=== PATIENT | female | born 1960 | race Caucasian/White ===

== ENCOUNTER → 2018-01-14 13:35 | Outpatient (CLI) | payer OTHER, SELFPAY ==
--- NOTE | 2018-01-14 13:38 | RAD_ITS ---
STUDY: X-RAY - RIGHT SHOULDER REASON FOR EXAM: Female, 57 years old. Shoulder pain, no trauma. TECHNIQUE: 4 view(s) of the shoulder. COMPARISON: None. FINDINGS: There is mild chronic AC joint arthrosis. There is no significant degeneration of the glenohumeral joint. There is no fracture or dislocation. Periarticular soft tissues appear normal. Right hemithoracic structures within the field of view appear normal. RAD/Shoulder min 2 Views IMPRESSION: Mild chronic AC joint arthrosis. Electronically Signed: Dennys Peres, at 14:13 EDT Tel , Service support ,
== END ==
PROVIDERS: Family Provider Internal Medicine; PCP Internal Medicine; Visit Provider Internal Medicine
DX: M25.511 Pain in right shoulder (principal)
CPT/HCPCS: 73030

== ENCOUNTER → 2018-03-08 16:33 | Outpatient (CLI) | payer OTHER, SELFPAY ==
--- NOTE | 2018-03-08 17:30 | MRI_ITS ---
STUDY: MRI RIGHT SHOULDER REASON FOR EXAM: Female, 57 years old. Pain. Decreased range of motion. TECHNIQUE: Standardized fat and water weighted pulse sequences were obtained in all 3 orthogonal planes. COMPARISON: X-ray January 14, 2018. FINDINGS: There is supraspinatus tendinosis with tendon thickening, but without a demonstrated tendon tear. Normal infraspinatus tendon. Normal subscapularis tendon. Normal teres minor tendon. Normal supraspinatus muscle. Normal infraspinatus muscle. Normal subscapularis muscle. Normal teres minor muscle. Normal glenohumeral articulation. Normal humeral head and visualized proximal humerus. Normal biceps labral complex. Normal intracapsular long biceps tendon. Normal labrum. Normal capsulo- ligamentous complex. Normal rotator interval. There is a hypertrophic osteoarthritis of the acromioclavicular articulation with impingement upon the musculotendinous junction of the supraspinatus muscle. There is a Type II morphology (curved) acromion, with a neutral orientation. There is no subacromial-subdeltoid bursal fluid. Normal visualized coracohumeral and coracoacromial ligaments. Normal quadrilateral space. Normal axillary space. Normal deltoid muscle. Normal trapezius muscle. MRI/Upper Ext Joint Only(Routine) IMPRESSION: No full-thickness rotator cuff tear Tendinosis of the supraspinatus. Acromioclavicular spurring with impingement. Electronically Signed: Efren Wong MD at 9:32 EST , Service support ,
== END ==
PROVIDERS: Family Provider Internal Medicine; PCP Internal Medicine; Referring Provider Internal Medicine; Visit Provider Internal Medicine
DX: M25.511 Pain in right shoulder (principal)
CPT/HCPCS: 73221

== ENCOUNTER 2018-10-12 08:21 | Observation (INO) | payer OTHER, SELFPAY ==
[2018-10-12 08:22] VITALS: BP 129/72; PULSE 75; RESP 17; TEMP 36.4; O2SAT 100; BMI 34.0
--- NOTE | 2018-10-12 08:41 | EKG12_ITS ---
Test Reason : Blood Pressure : / mmHG Vent. Rate : 072 BPM Atrial Rate : 072 BPM P-R Int : 180 ms QRS Dur : 082 ms QT Int : 396 ms P-R-T Axes : 049 -01 027 degrees QTc Int : 433 ms Normal sinus rhythm Normal ECG Confirmed by LENCHO LEO, ALFREDO ([id number]), news editor LETICIA WHALEN ([id number]) on 10/15/2018 9:28:36 AM Referred By: RAMILA Confirmed By:ALFREDO MUSA MD
--- NOTE | 2018-10-12 08:42 | CT_ITS ---
STUDY: CT ABDOMEN AND PELVIS WITHOUT CONTRAST REASON FOR EXAM: Female, 57 years old. Bilateral flank pain RADIATION DOSAGE (If Supplied By Facility): CTDIvol = ( 20.12 ) mGy, DLP = ( 1050.38 ) mGycm TECHNIQUE: Transaxial images were obtained from the dome of the diaphragm to the symphysis pubis without oral contrast, and without intravenous contrast. Sagittal and coronal images were reconstructed. Individualized dose optimization techniques were used for this CT. COMPARISON: August 22, 2016 CT scan abdomen and pelvis FINDINGS: The visualized lung bases are unremarkable. The visualized portions of the heart are within normal limits. Normal liver. There are surgical clips in the gallbladder fossa consistent with a prior cholecystectomy. Normal spleen. Normal pancreas. Normal bilateral adrenal glands. There is a cyst in the right kidney measuring 1.3 cm. Is similar to the prior study allowing for the noncontrasted nature of the study. Normal left kidney. There is a small hiatal hernia. There mildly distended loops of small bowel present especially in the left upper quadrant. Is moderate stool in the colon from the cecum to the rectum. There is diverticulosis without visualized diverticulitis. There is non-visualization of the appendix. The aorta is partially calcified. There is calcification of the take off of the left renal artery. Normal inferior vena cava. Normal retroperitoneum. Normal urinary bladder. Normal visualized uterus. Normal abdominal wall. There is disc space narrowing and broad disc bulge minimal neural foraminal narrowing L4-L5. CT/Abdomen/Pelvis without Cont IMPRESSION: Constipation. Diverticulosis no evidence of diverticulitis. Subtle fairly stable appearing right renal cyst. No evidence of renal ureteral or bladder calculi no evidence of hydronephrosis. Status post cholecystectomy. Mild distention of the small bowel in the left upper quadrant could consider mild focal ileus. Electronically Signed: Aura Crow MD at 9:48 EDT Tel , Service support ,
[2018-10-12 08:51] LABS: Mucous, Urine 0 SEEN /hpf (<or=2+); Red Blood Cells-Urine 0 SEEN /hpf (0-5)
[2018-10-12] MEDS: 0.9% Normal Saline 1,000 ML 125 ML IV ×2 (08:51→17:52)
[2018-10-12] MEDS: Morphine 4 MG/ML Syringe IV (08:51)
[2018-10-12] MEDS: Ondansetron 4 MG/2 ML Vial IV (08:51)
--- NOTE | 2018-10-12 08:55 | ED.VISSUMM ---
- ER Visit Summary Date of Service: 10/12/18 Chief Complaint: [Abdominal pain] History of Present Illness: The patient is a 57 F [resents to the emergency department complaint of abdominal pain that started yesterday. Patient states that she noticed it after she got home from work that she had some discomfort in her left mid back. Patient thought she might be developing a urinary tract infection so she took an Azo tablet. She denies urinary symptoms otherwise of urgency, frequency, or hematuria. Patient states that this morning the pain migrated to her abdomen. Patient states that she feels full and bloated. She is had some nausea but no vomiting. She denies any blood in her stool or black tarry stools. Patient has history of diabetes, hypertension, high cholesterol, and kidney stones. She denies any chest pain or shortness of breath. The discomfort is not pleuritic.] Physical Examination: [HEENT-PERRLA, EOMI. Cranial nerves II through XII grossly intact. TMs clear. Mucous membranes moist. No adenopathy. Cardiovascular-regular rate and rhythm without murmur or ectopy Lungs-clear to auscultation, chest wall stable without crepitus or subcu emphysema Abdomen-normoactive bowel sounds, soft. Patient has some mild tenderness over the gastric region diffusely. Patient has mild tenderness over the left lower quadrant. There is no rebound, rigidity, or perineal signs. No pulsatile masses palpated. Extremities-intact ?4, normal range of motion, normal pulses, atraumatic] Test Results: [CBC with differential shows a white count 4.3, hemoglobin 12, hematocrit 3, placed 192. Chemistries unremarkable. Liver enzymes were normal. Lipase was 160. Troponin is less than 0.015. Lactate was 1.2. EKG on arrival shows sinus rhythm with a ventricular rate 72 bpm with no acute ST segment changes. CT scan of the abdomen pelvis without contrast because patient allergic to IV and p.o. contrast was obtained which showed some dilated loops of small bowel suspicious for ileus. Urinalysis pending.] Emergency Department Course and Treatment: [IV line established and patient was given normal saline. Patient was treated with morphine and Zofran.] Treatment Plan: [Admit for fluids and symptom control.] Disposition: [Admit] Impression: [Abdominal pain Ileus] This note was generated with [employer] software. It may contain incorrect words, spelling, and punctuation that were not noted in review of the chart prior to signing ED Disposition - Plan for ED Patient: Referrals: Lashay Rivers DO [Primary Care Provider] -
[2018-10-12 08:57] LABS: Absolute Lymphocyte Count 1.31 X10^3/ul (0.83-4.51); Absolute Neutrophil Count 2.5 X10^3/uL (2.0-7.7); Basophil# 0.02 X10^3/uL; Basophil% 0.5 % (0-1); Eosinophil# 0.23 X10^3/uL; Eosinophils% 5.4 % (0-5); Hematocrit 38.1 % (37-47); Hemoglobin 12.1 g/dl (12.0-15.0); Lymphocyte # 1.31 X10^3/ul (4.0); Lymphocyte % 30.5 % (19-41); Mean Corp Hgb Conc 31.8 g/gl (32-36); Mean Corpuscular Volume 94.3 fL (81-99); Mean Platelet Vol. 10.3 fl (6.2-12.0); Monocyte# 0.25 X10^3/uL; Monocyte% 5.8 % (0-10); Neutrophil # 2.48 X10^3/uL (2.7-7.7); Neutrophil % 57.8 % (47-70); POSITIVE COUNT NO; POSITIVE DIFFERENTIAL NO; POSITIVE MORPHOLOGY NO; Platelet Count 192 K/mm3 (150-450); RBC Distribution Width CV 14.3 % (11.6-14.6); RBC Distribution Width SD 48.9 fl (35.1-43.9); Red Blood Count 4.04 M/mm3 (4.2-5.4); White Blood Count 4.3 K/mm3 (4.4-11.0)
[2018-10-12 09:12] LABS: ALB/GLOB Ratio 1.2 RATIO (0.9-2.4); AST(SGOT) 16 U/L (15-37); Alanine Aminotransfer ALT/SGPT 26 U/L (13-56); Alkaline Phosphatase 39 U/L (45-117); Anion Gap 4 (5-15); BUN 23 mg/dL (7-18); BUN/Creat Ratio 23.8 RATIO (10-20); Calcium,Total 9.3 mg/dL (8.5-10.1); Chloride 106 mmol/L (98-107); Creatinine, Serum 0.97 mg/dL (0.55-1.02); EST Glomerular Filtration Rate 63 mL/min (>60); Est Glom Filt Rate - Afr Amer 76 mL/min (>60); Estimated Creatinine Clearance 56.89 ml/min; Globulin 3.4 g/dL (2.2-4.2); Glucose 113 mg/dL (74-106); Lipase 160 U/L (73-393); Potassium 4.2 mmol/L (3.5-5.1); Protein, Total 7.4 g/dL (6.4-8.2); Sodium Level 137 mmol/L (136-145)
[2018-10-12 09:27] LABS: Lactic Acid 1.2 mmol/L (0.4-2.0)
[2018-10-12 10:23] VITALS: BP 129/83; PULSE 89; RESP 16; O2SAT 98
[2018-10-12 10:23] LABS: Glucose, Dipstick 1000 mg/dl (Normal); Ketone-Dipstick Negative (Negative); Leukocyte Esterase-Dipstick 25 /ul (Negative); Nitrite-Dipstick Positive (Negative); Occult Blood-Urine Negative /ul (Negative); Protein-Dipstick 15 mg/dl (Negative); Specific Gravity, Urine 1.015 (1.002-1.030); Urine Clarity Clear (Clear); Urine Urobilinogen 4 mg/dl (Normal)
[2018-10-12 10:24] LABS: Urine Bilirubin Dipstick 3 mg/dL (Negative)
[2018-10-12 10:25] LABS: Color, Urine Orange (Yellow)
[2018-10-12 10:32] LABS: Bacteria RARE /hpf (None Seen); Squamous Epithelial Cells - UA 0-5 SEEN /hpf (5-10); White Blood Cells 0-5 SEEN /hpf (0-5)
[2018-10-12 10:46] VITALS: BP 127/61; PULSE 70; RESP 16; TEMP 36.6; O2SAT 96; BMI 33.4
[2018-10-12 11:09] VITALS: BMI 33.4
--- NOTE | 2018-10-12 11:15 | HP.PCM_ITS ---
Problem List (1) Acute bilateral thoracic back pain Status: Acute (2) Abdominal pain Status: Acute Qualifiers: Abdominal location: upper abdomen, unspecified Qualified Code(s): R10.10 - Upper abdominal pain, unspecified (3) Leukopenia Status: Chronic (4) Dehydration Status: Acute (5) Hypertension Status: Chronic Qualifiers: Hypertension type: essential hypertension Qualified Code(s): I10 - Essential (primary) hypertension (6) TIA (transient ischemic attack) Status: Chronic Comment: 2016 (7) Hyperlipidemia Status: Chronic (8) Diabetes mellitus type 2 in obese Status: Chronic (9) Obesity (BMI 30.0-34.9) Status: Acute (10) Osteoarthritis Status: Chronic Qualifiers: Osteoarthritis location: spine (11) Diverticulosis Status: Chronic (12) Nephrolithiasis Status: Acute History of Present Illness Date of Admission: 10/12/18 Chief Complaint: back pain in the low thoracic area with radiation to the upper abdomen The patient is a 57 year old F with a past medical history of hypertension, diabetes mellitus type 2, obesity, nephrolithiasis, osteoarthritis, diverticulosis, chronic 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 She tells me that she first noticed the pain on 10/11/2018 and it originated in the spine in the lower thoracic area. Today the pain began radiating around the sides to the upper abdomen, left greater than right. She denies any radiation of the pain into her legs and also denies any bowel or bladder dysfunction. She has no weakness. The pain increases with movement and somewhat with taking a deep breath. She has some mild nausea but has not vomited. She had a normal bowel movement this morning at approximately 4 AM. Denies any problem with diarrhea or constipation. Vital signs of presentation to the emergency room are temperature 97.6, pulse rate 75, blood pressure 129/72, respiratory rate 17 and she was 100% saturated on room air. White blood cell count is 4.3 with an unremarkable differential. Hemoglobin is 12.1 and platelets are within normal limits. The BUN is elevated at 23 with a creatinine of 0.97 and she is on hydrochlorothiazide as an outpatient for blood pressure control. Random blood sugar was 113. Lactic acid was 1.2. LFTs were unremarkable and the troponin is less than 0.015. The UA is positive for nitrites however the patient took to Azo prior to coming to the emergency room. There is 0-5 WBCs and she denies dysuria, urinary frequency or urinary urgency. CT scan of the abdomen and pelvis revealed possible ileus in the left upper quadrant with no evidence of small bowel obstruction. She has pain with palpation and percussion over the Lower thoracic vertebrae which radiates around the sides into the upper abdomen. She has no pain or guarding with deep palpation of the upper abd and there are no masses or HS appreciated. She is being admitted to the hospital for observa tion and evaluation for the etiology of the sudden onset of severe back and abdominal pain. Past Medical History Past Medical History (Chronic Problems): Chronic Problems Leukopenia (Chronic) Diabetes mellitus type 2 in obese (Chronic) Osteoarthritis (Chronic) Diverticulosis (Chronic) Hypertension (Chronic) TIA (transient ischemic attack) (Chronic) 2016 Hyperlipidemia (Chronic) Allergies Quinolones Allergy (Verified 10/12/18 08:22) Swelling codeine Adverse Reaction (Verified 10/12/18 08:22) Nausea Iodinated Contrast- Oral and IV Dye [Iodinated Contrast Media - IV Dye] Adverse Reaction (Verified 10/12/18 08:22) Swelling Home Medications: Ambulatory Orders Medication Instructions Recorded Allopurinol [Zyloprim] 300 mg PO DAILY 08/10/14 Ramipril [Altace] 5 mg PO DAILY 08/10/14 Sitagliptin Phosphate [Januvia] 100 mg PO DAILY 08/10/14 glipiZIDE [Glucotrol] 20 mg PO DAILY 08/10/14 Amlodipine [Norvasc] 5 mg PO DAILY #30 tablet 09/15/15 Aspirin E.C. 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 Lives: Spouse/ Significant Other Smoking Status: Never smoker Tobacco Use: Non-smoker Alcohol: Rare Drugs: None - *Family History Maternal History Items: Heart Disease, Stroke, No pertinent history Paternal History Items: Heart Disease Sibling History Items: Diabetes, Heart Disease, - - colon CA in her brother Review of Systems Constitutional: Denies: Chills, Fever, Weight Change Eyes: Denies: Blurred vision HEENT: Denies: Head Aches, Sinus Congestion, Sinus Drainage Cardiovascular: Denies: Chest Pain, Light Headedness, Palpitations Respiratory: Denies: Cough, Shortness of breath at rest, Sputum production Gastrointestinal: Reports: Abdominal Pain - upper abdomen....radiates from the back, Nausea, - - last BM was this AM at 4 AM and it was normal. Denies: Constipation, Diarrhea, Vomiting Genitourinary: Denies: Dysuria Musculoskeletal: Reports: Back Pain - lower thoracic and lower lumbar, - - no radiation of the pain into the legs. Denies: Joint Pain, Joint Tenderness, Muscle pain, Neck Pain Skin: Denies: Rash, Wounds Neurological: Denies: Numbness, Tingling, Focal weakness Psychiatric: Denies: Anxiety, Depression, Homicidal Ideations, Suicidal Ideations Endocrine: Denies: Change in Body Habitus Hematologic/ Lymphatic: Denies: Easy Bruising, Easy Bleeding, Hx of blood clot VTE Information - Inpt Only VTE Present on Admission: No VTE Mechan Device Prophylaxis: SCD's, Knee High YOSELIN Hose VTE Pharm Prophylaxis ordered?: Yes Patient Problems: Active and Suspected Problems Acute bilateral thoracic back pain (Acute) Abdominal pain (Acute) Obesity (BMI 30.0-34.9) (Acute) Nephrolithiasis (Acute) - Physical Exam General: Alert, Oriented x3, Cooperative, - - appears to be in pain....increased pain with rolling over in bed and with palpation and percussion of the lower thoracic vertebrae HEENT: Atraumatic, PERRLA, EOMI, Normocephalic Neck: Supple, No JVD, Negative Carotid Bruits Lungs: Clear to auscultation, Normal air movement, Diminished - in the bases.....does not take a deep breath because it increases the pain Cardiovascular: Regular rate, Regular Rhythm, Normal S1, Normal S2, No murmurs, No Ectopic Activity, No rub noted, No Gallop Abdomen: Bowel Sounds Present, Soft, Non-Distended, No Hepato-splenomegaly, Obese, Tender - minimal pain with palpation of the mid epigastric area with no guarding.....no pain with palpation when distracted Extremities: No clubbing, No cyanosis, No edema, Capillary Refill Less than 3 Seconds, No Calf Tenderness, Peripheral Pulses Normal Skin: No rashes, No breakdown Musculoskeletal: No Tenderness to Palpation of Joints or Extremities Neurological: Cranial nerves II-XII grossly intact, Neuro grossly intact, Motor Exam 5/5 strength throughout, - - Negative straight leg raising bilaterally Psych/Mental Status: Normal Affect, Appropriate Vital Signs Temp Pulse Resp BP Pulse Ox 97.8 F 70 16 127/61 H 96 10/12/18 10:46 10/12/18 10:46 10/12/18 10:46 10/12/18 10:46 10/12/18 10:46 Oxygen Delivery Method Room Air Weight: 201 lb Body Mass Index (BMI) 33.4 Finger Stick Blood Glucose 24 Laboratory Tests Past 24 Hrs 10/12/18 10/12/18 10/12/18 08:43 08:43 08:43 WBC 4.3 L RBC 4.04 L Hgb 12.1 Hct 38.1 MCV 94.3 MCH 30.0 MCHC 31.8 L RDW 14.3 RDW Differential 48.9 H Plt Count 192 MPV 10.3 Immature Gran % (Auto) 0.000 Neut % (Auto) 57.8 Lymph % (Auto) 30.5 [place] % (Auto) 5.8 Eos % (Auto) 5.4 H Baso % (Auto) 0.5 Absolute Neuts (auto) 2.5 Absolute Lymphs (auto) 1.31 Total Counted Not Reportable Sodium 137 Potassium 4.2 Chloride 106 Carbon Dioxide 27.0 Anion Gap 4 L BUN 23 H Creatinine 0.97 Estim Creat Clear Calc 56.89 Est GFR (MDRD) Af Amer 76 Est GFR (MDRD) Non-Af 63 BUN/Creatinine Ratio 23.8 H Glucose 113 H Hemoglobin A1c Lactic Acid 1.2 Calcium 9.3 Total Bilirubin 0.50 AST 16 ALT 26 Alkaline Phosphatase 39 L Troponin I < 0.015 Total Protein 7.4 Albumin 4.0 Globulin 3.4 Albumin/Globulin Ratio 1.2 Lipase 160 Urine Color Urine Clarity Urine pH Ur Specific [place] Urine Protein Urine Glucose (UA) Urine Ketones Urine Occult Blood Urine Nitrite Urine Bilirubin Urine Urobilinogen Ur Leukocyte Esterase Urine RBC Urine WBC Ur Squamous Epith Cells Urine Bacteria Urine Mucus 10/12/18 10/12/18 08:43 08:43 WBC RBC Hgb Hct MCV MCH MCHC RDW RDW Differential Plt Count MPV Immature Gran % (Auto) Neut % (Auto) Lymph % (Auto) [place] % (Auto) Eos % (Auto) Baso % (Auto) Absolute Neuts (auto) Absolute Lymphs (auto) Total Counted Sodium Potassium Chloride Carbon Dioxide Anion Gap BUN Creatinine Estim Creat Clear Calc Est GFR (MDRD) Af Amer Est GFR (MDRD) Non-Af BUN/Creatinine Ratio Glucose Hemoglobin A1c Pending Lactic Acid Calcium Total Bilirubin AST ALT Alkaline Phosphatase Troponin I Total Protein Albumin Globulin Albumin/Globulin Ratio Lipase Urine Color [place] Urine Clarity Clear Urine pH 5.0 Ur Specific [place] 1.015 Urine Protein 15 H Urine Glucose (UA) 1000 H Urine Ketones Negative Urine Occult Blood Negative Urine Nitrite Positive H Urine Bilirubin 3 H Urine Urobilinogen 4 H Ur Leukocyte Esterase 25 H Urine RBC 0 SEEN Urine WBC 0-5 SEEN Ur Squamous Epith Cells 0-5 SEEN Urine Bacteria RARE Urine Mucus 0 SEEN Assessment/Plan All Active Problems Acute bilateral thoracic back pain (Acute) Abdominal pain (Acute) Obesity (BMI 30.0-34.9) (Acute) Nephrolithiasis (Acute) Dehydration (Acute) Headache (Acute) Hypokalemia (Resolved) Impressions 1. Upper abdominal pain. The CT scan of the abdomen and pelvis is unremarkable. She had a normal bowel movement this morning. She has had no emesis. The pain seems to originate in the lower thoracic spine and radiates around the sides to the upper abdomen. It is reproducible with percussion over the vertebrae. She has increased pain with movement and deep breath. I suspect the origin of the pain is in the lower thoracic spine with radiation of the pain into the upper abdomen. CT scan of the abdomen and pelvis showed disc space narrowing and broad disc bulge with minimal neural foraminal narrowing at L4-5. 2. Disc bulge at L4-L5 with no significant foraminal stenosis or canal stenosis. 3. Suspected focal ileus in the left upper quadrant 4. Diabetes mellitus type 2 5. Hypertension 6. Hyperlipidemia 7. Obesity 8. History of nephrolithiasis in the past with a stable right renal cyst on CT scan. 9. Small hiatal hernia 10. Diverticulosis with no evidence of diverticulitis MRI of the thoracic and the lumbar spine Gabapentin 300 mg p.o. now Morphine ordered for pain control Zofran as needed nausea Await the results of the MRI to determine further treatment N.p.o. except sips and chips for now until the results of the MRI available Every 6 hours blood sugars with sliding scale insulin coverage Code Visit OBSV E&M: [id number] Initial observation care L3
[2018-10-12 11:28] LABS: Hemoglobin A1c 7.2 % (4.2-6.3)
--- NOTE | 2018-10-12 11:34 | MRI_ITS ---
STUDY: MRI THORACIC SPINE WITHOUT CONTRAST REASON FOR EXAM: Female, 57 years old. Sharp back pain for 2 days TECHNIQUE: Standardized fat and water weighted pulse sequences were obtained in the sagittal and axial planes. COMPARISON: None. FINDINGS: Normal kyphosis of the thoracic spine. There is no substantial scoliosis. Mild multilevel degenerative disc disease without evidence of underlying significant central canal or foraminal stenosis. No evidence of cord compression or exiting nerve root impingement. Normal visualized thoracic cord. Renal cysts. MRI/Spine Thoracic (Routine) IMPRESSION: Mild multilevel disc disease without significant compressive sequelae. No evidence of compression fracture, cord pathology, or exiting nerve root impingement. Electronically Signed: Rui Corcoran MD at 14:48 EDT Tel , Service support ,
--- NOTE | 2018-10-12 11:34 | MRI_ITS ---
STUDY: MRI LUMBAR SPINE WITHOUT CONTRAST REASON FOR EXAM: Female, 57 years old. Sharp back pain for 2 days TECHNIQUE: Standardized fat and water weighted pulse sequences were obtained in the sagittal and axial planes. COMPARISON: None FINDINGS: T12-L1: Normal endplates. Normal disc height, hydration and morphology. Normal bilateral facet joints. Normal central canal and bilateral lateral recesses. Normal bilateral intervertebral neural foramina. Normal lumbar lordosis. There is no substantial scoliosis. Normal conus medullaris that terminates at the L1 level. L1-2: Bulging annulus without compressive sequelae. L2-3: Normal endplates. Normal disc height, hydration and morphology. Normal bilateral facet joints. Normal central canal and bilateral lateral recesses. Normal bilateral intervertebral neural foramina. L3-4: Bulging annulus without compressive sequelae. L4-5: Disc space narrowing and desiccation with discogenic endplate changes and anterior osteophytes. Bulging annulus with moderate right and mild left foraminal stenoses. L5-S1: Normal disc. Bilateral facet hypertrophy and facet joint effusions. Normal visualized sacral ala. Normal visualized paraspinous soft tissue structures. Left renal cyst. MRI/Spine Lumbar (Routine) IMPRESSION: Multilevel degenerative disease as described. Moderate right foraminal stenosis at the L4-5 level. No acute compression fracture. Electronically Signed: Rui Corcoran MD at 14:58 EDT Tel , Service support ,
[2018-10-12] MEDS: Gabapentin 100 MG Capsule 200 MG PO (12:06)
[2018-10-12] MEDS: Enoxaparin 40 MG/0.4 ML Syringe SC (12:07)
[2018-10-12] MEDS: LORazepam 1 MG Tablet PO (12:35)
[2018-10-12 15:14] VITALS: BP 126/66; PULSE 72; RESP 16; TEMP 36.6; O2SAT 92
[2018-10-12 16:26] LABS: Bedside Glucose 83 mg/dL (70-110)
[2018-10-12 17:25] LABS: Bedside Glucose 97 mg/dL (70-110)
[2018-10-12 21:30] VITALS: BP 114/67; PULSE 71; RESP 16; TEMP 36.8; O2SAT 93
[2018-10-13] VITALS: BP 121/69; PULSE 72; RESP 18; TEMP 36.7; O2SAT 96
[2018-10-13 00:11] LABS: Bedside Glucose 80 mg/dL (70-110)
[2018-10-13] MEDS: 0.9% Normal Saline 1,000 ML 125 ML IV ×2 (01:59→08:55)
[2018-10-13 03:54] VITALS: BP 130/75; PULSE 73; RESP 18; TEMP 36.6; O2SAT 96
[2018-10-13 08:48] VITALS: BP 114/57; PULSE 70; RESP 18; TEMP 36.6; O2SAT 98
[2018-10-13] MEDS: Allopurinol 300 MG Tablet PO (08:50)
[2018-10-13] MEDS: Enoxaparin 40 MG/0.4 ML Syringe SC (08:51)
--- NOTE | 2018-10-13 10:22 | PCM.DC ---
- Discharge Diagnoses Current Active Problems: Current Active and Chronic Problems Acute bilateral thoracic back pain (Acute) Abdominal pain (Acute) Leukopenia (Chronic) Diabetes mellitus type 2 in obese (Chronic) Obesity (BMI 30.0-34.9) (Acute) Osteoarthritis (Chronic) Diverticulosis (Chronic) Nephrolithiasis (Acute) You will use the following diet at home:: Calorie/Carbohydrate Controlled (specify 1200, 1400, etc), Cardiac Your food should be the consistency of: Regular Your liquids should be the consistency of: Regular/Thin Discharge Activity: Return to Normal Activity Return to work on:: 10/14/18 Call your doctor if you observe: Fever of 101 or Higher, Inability to have a bowel movement, Shortness of breath, Dizziness, Fainting spells, Swelling in the ankles, Uncontrolled pain, - - nausea and vomiting Instructions: Depression Affects Your Mind and Body, What Can Cause Depression?, Counseling for Depression, Depression: Tips to Help Yourself Additional Instructions: The MRI of the thoracic spine showed mild multilevel disc disease without significant compression of the spinal cord or the nerves exiting the spinal cord, The MRI of the Lumbar spine shows a bulging disc at L4-L5 with compression of the nerve root exiting on the right at this level BUT, you do not have any pain radiating into the legs and no weakness of the legs or numbness so this is not significant at this time. I think that you are significantly depressed and overwhelmed with responsibility at this time and it affects your perception of pain. I have started you on an antidepressant and also treats anxiety and it is called Zoloft, also know as Sertraline. You will take this medication once a day in the AM. It takes 2-3 weeks to get any significant benefit from this medication so hang in there. I also think you would benefit from some counselling to teach you how to manage your stress better. The [facility] on [facility] is an excellent place to go for therapy. Check with your insurance company to see if they cover any psychotherapy. You can take Tylenol for pain.......650 mg - 1,000 mg every 8 hours as needed. Pending Tests on Discharge: none Allergies/Adverse Reactions: Allergies Quinolones Allergy (Verified 10/12/18 08:22) Swelling codeine Adverse Reaction (Verified 10/12/18 08:22) Nausea Iodinated Contrast- Oral and IV Dye [Iodinated Contrast Media - IV Dye] Adverse Reaction (Verified 10/12/18 08:22) Swelling Medications to take at Discharge Allopurinol [Zyloprim] 300 mg PO DAILY 08/10/14 Ramipril [Altace] 5 mg PO DAILY 08/10/14 Sitagliptin Phosphate [Januvia] 100 mg PO DAILY 08/10/14 glipiZIDE [Glucotrol] 20 mg PO DAILY 08/10/14 Amlodipine [Norvasc] 5 mg PO DAILY #30 tablet 09/15/15 Aspirin E.C. [Ecotrin] 81 mg PO DAILY@0800 #30 tablet 09/15/15 metFORMIN HCl [Glucophage] 1,000 mg PO BIDCM #60 tablet 09/15/15 Pioglitazone [Actos] 15 mg PO DAILY 08/12/16 Simvastatin [Zocor] 40 mg PO QHS 08/12/16 Cholecalciferol (Vitamin D3) [Vitamin D3] 7,000 unit PO DAILY 03/06/17 Empagliflozin [Jardiance] 25 mg PO DAILY 03/06/17 Hydrochlorothiazide [Hctz] 25 mg PO DAILY 03/06/17 Magnesium Oxide [Magnesium] 400 mg PO DAILY 03/06/17 Sertraline HCl [Zoloft] 50 mg PO DAILY #30 tablet 10/13/18 The following prescriptions were given: Sertraline HCl [Zoloft] 50 mg PO DAILY #30 tablet Primary Care Physician: Lashay Rivers DO [Primary Care Provider] - Please follow up with your Primary Care Physician in: 5-7 days Test Results: Test results from this visit will be discussed in further detail at your follow-up appointment, if applicable. Proposed Discharge Date: 10/13/18
--- NOTE | 2018-10-13 10:32 | DCINST_ITS ---
- Discharge Diagnoses Current Active Problems: Current Active and Chronic Problems Acute bilateral thoracic back pain (Acute) Abdominal pain (Acute) Leukopenia (Chronic) Diabetes mellitus type 2 in obese (Chronic) Obesity (BMI 30.0-34.9) (Acute) Osteoarthritis (Chronic) Diverticulosis (Chronic) Nephrolithiasis (Acute) You will use the following diet at home:: Calorie/Carbohydrate Controlled (specify 1200, 1400, etc), Cardiac Your food should be the consistency of: Regular Your liquids should be the consistency of: Regular/Thin Discharge Activity: Return to Normal Activity Return to work on:: 10/14/18 Call your doctor if you observe: Fever of 101 or Higher, Inability to have a bowel movement, Shortness of breath, Dizziness, Fainting spells, Swelling in the ankles, Uncontrolled pain, - - nausea and vomiting Instructions: Depression Affects Your Mind and Body, What Can Cause Depression?, Counseling for Depression, Depression: Tips to Help Yourself Additional Instructions: The MRI of the thoracic spine showed mild multilevel disc disease without significant compression of the spinal cord or the nerves exiting the spinal cord, The MRI of the Lumbar spine shows a bulging disc at L4- L5 with compression of the nerve root exiting on the right at this level BUT, you do not have any pain radiating into the legs and no weakness of the legs or numbness so this is not significant at this time. I think that you are significantly depressed and overwhelmed with responsibility at this time and it affects your perception of pain. I have started you on an antidepressant and also treats anxiety and it is called Zoloft, also know as Sertraline. You will take this medication once a day in the AM. It takes 2-3 weeks to get any signif icant benefit from this medication so hang in there. I also think you would benefit from some counselling to teach you how to manage your stress better. The [facility] on [facility] is an excellent place to go for therapy. Check with your insurance company to see if they cover any psychotherapy. You can take Tylenol for pain.......650 mg - 1,000 mg every 8 hours as needed. Pending Tests on Discharge: none Allergies/Adverse Reactions: Allergies Quinolones Allergy (Verified 10/12/18 08:22) Swelling codeine Adverse Reaction (Verified 10/12/18 08:22) Nausea Iodinated Contrast- Oral and IV Dye [Iodinated Contrast Media - IV Dye] Adverse Reaction (Verified 10/12/18 08:22) Swelling Medications to take at Discharge Allopurinol [Zyloprim] 300 mg PO DAILY 08/10/14 Ramipril [Altace] 5 mg PO DAILY 08/10/14 Sitagliptin Phosphate [Januvia] 100 mg PO DAILY 08/10/14 glipiZIDE [Glucotrol] 20 mg PO DAILY 08/10/14 Amlodipine [Norvasc] 5 mg PO DAILY #30 tablet 09/15/15 Aspirin E.C. [Ecotrin] 81 mg PO DAILY@0800 #30 tablet 09/15/15 metFORMIN HCl [Glucophage] 1,000 mg PO BIDCM #60 tablet 09/15/15 Pioglitazone [Actos] 15 mg PO DAILY 08/12/16 Simvastatin [Zocor] 40 mg PO QHS 08/12/16 Cholecalciferol (Vitamin D3) [Vitamin D3] 7,000 unit PO DAILY 03/06/17 Empagliflozin [Jardiance] 25 mg PO DAILY 03/06/17 Hydrochlorothiazide [Hctz] 25 mg PO DAILY 03/06/17 Magnesium Oxide [Magnesium] 400 mg PO DAILY 03/06/17 Sertraline HCl [Zoloft] 50 mg PO DAILY #30 tablet 10/13/18 The following prescriptions were given: Sertraline HCl [Zoloft] 50 mg PO DAILY #30 tablet Primary Care Physician: Lashay Rivers DO [Primary Care Provider] - Please follow up with your Primary Care Physician in: 5-7 days Test Results: Test results from this visit will be discussed in further detail at your follow- up appointment, if applicable. Proposed Discharge Date: 10/13/18
--- NOTE | 2018-10-13 10:42 | DS.PCM_ITS ---
Discharge Date and Diagnosis - Problem List Patient Problems: Active and Suspected Problems Bulging of intervertebral disc between L4 and L5 (Acute) Date of Admission: 10/12/18 Date of Discharge: 10/13/18 - Primary Discharge Diagnosis Active and Suspected Problems Acute bilateral thoracic back pain (Acute) Abdominal pain (Acute) Bulging of intervertebral disc between L4 and L5 (Acute) - Secondary Discharge Diagnosis Chronic Problems Leukopenia (Chronic) Diabetes mellitus type 2 in obese (Chronic) Osteoarthritis (Chronic) Diverticulosis (Chronic) Hypertension (Chronic) TIA (transient ischemic attack) (Chronic) 2016 Hyperlipidemia (Chronic) Obesity History of nephrolithiasis Depression 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 Diverticulosis no evidence of diverticulitis. Subtle fairly stable appearing right renal cyst. No evidence of renal ureteral or bladder calculi no evidence of hydronephrosis. Status post cholecystectomy. Mild distention of the small bowel in the left upper quadrant could consider mild focal ileus. Electronically Signed: Aura Crow MD at 9:48 EDT Tel , Service support , Lumbar Spine MRI 10/12/18 11:34 IMPRESSION: Multilevel degenerative disease as described. Moderate right foraminal stenosis at the L4-5 level. No acute compression fracture. Electronically Signed: Rui Corcoran MD at 14:58 EDT Tel , Service support , Thoracic Spine MRI 10/12/18 11:34 IMPRESSION: Mild multilevel disc disease without significant compressive sequelae. No evidence of compression fracture, cord pathology, or exiting nerve root impingement. Electronically Signed: Rui Corcoran MD at 14:48 EDT Tel , Service support , Laboratory Tests 3 10/12/18 10/12/18 10/12/18 Range/Units 23:58 16:54 11:19 WBC (4.4-11.0) K/mm3 RBC (4.2-5.4) M/mm3 Hgb (12.0-15.0) g/dl Hct (37-47) % MCV (81-99) fL MCH (27.0-32.0) pg MCHC (32-36) g/gl RDW (11.6-14.6) % RDW Differential (35.1-43.9) fl Plt Count (150-450) K/mm3 MPV (6.2-12.0) fl Immature Gran % (Auto) (0.0-0.9) % Neut % (Auto) (47-70) % Lymph % (Auto) (19-41) % Rhea % (Auto) (0-10) % Eos % (Auto) (0-5) % Baso % (Auto) (0-1) % Absolute Neuts (auto) (2.0-7.7) X10^3/uL Absolute Lymphs (auto) (0.83-4.51) X10^3/ul Total Counted Sodium (136-145) mmol/L Potassium (3.5-5.1) mmol/L Chloride (98-107) mmol/L Carbon Dioxide (21.0-32.0) mmol/L Anion Gap (5-15) BUN (7-18) mg/dL Creatinine (0.55-1.02) mg/dL Estim Creat Clear Calc ml/min Est GFR (MDRD) Af Amer (>60) mL/min Est GFR (MDRD) Non-Af (>60) mL/min BUN/Creatinine Ratio (10-20) RATIO Glucose (74-106) mg/dL Hemoglobin A1c (4.2-6.3) % Lactic Acid (0.4-2.0) mmol/L Calcium (8.5-10.1) mg/dL Total Bilirubin (0.20-1.00) mg/dL AST (15-37) U/L ALT (13-56) U/L Alkaline Phosphatase (45-117) U/L Troponin I (<0.045) ng/mL Total Protein (6.4-8.2) g/dL Albumin (3.2-5.0) g/dL Globulin (2.2-4.2) g/dL Albumin/Globulin Ratio (0.9-2.4) RATIO Lipase (73-393) U/L Urine Color (Yellow) Urine Clarity (Clear) Urine pH (5.0 - 8.0) Ur Specific [place] (1.002-1.030) Urine Protein (Negative) mg/dl Urine Glucose (UA) (Normal) mg/dl Urine Ketones (Negative) mg/dl Urine Occult Blood (Negative) /ul Urine Nitrite (Negative) Urine Bilirubin (Negative) mg/dL Urine Urobilinogen (Normal) mg/dl Ur Leukocyte Esterase (Negative) /ul Urine RBC (0-5) /hpf Urine WBC (0-5) /hpf Ur Squamous Epith Cells (5-10) /hpf Urine Bacteria (None Seen) /hpf Urine Mucus (<or=2+) /hpf POC Glucose 80 97 83 (70-110) mg/dL 10/12/18 10/12/18 10/12/18 Range/Units 08:43 08:43 08:43 WBC (4.4-11.0) K/mm3 RBC (4.2-5.4) M/mm3 Hgb (12.0-15.0) g/dl Hct (37-47) % MCV (81-99) fL MCH (27.0-32.0) pg MCHC (32-36) g/gl RDW (11.6-14.6) % RDW Differential (35.1-43.9) fl Plt Count (150-450) K/mm3 MPV (6.2-12.0) fl Immature Gran % (Auto) (0.0-0.9) % Neut % (Auto) (47-70) % Lymph % (Auto) (19-41) % Rhea % (Auto) (0-10) % Eos % (Auto) (0-5) % Baso % (Auto) (0-1) % Absolute Neuts (auto) (2.0-7.7) X10^3/uL Absolute Lymphs (auto) (0.83-4.51) X10^3/ul Total Counted Sodium (136-145) mmol/L Potassium (3.5-5.1) mmol/L Chloride (98-107) mmol/L Carbon Dioxide (21.0-32.0) mmol/L Anion Gap (5-15) BUN (7-18) mg/dL Creatinine (0.55-1.02) mg/dL Estim Creat Clear Calc ml/min Est GFR (MDRD) Af Amer (>60) mL/min Est GFR (MDRD) Non-Af (>60) mL/min BUN/Creatinine Ratio (10-20) RATIO Glucose (74-106) mg/dL Hemoglobin A1c 7.2 H (4.2-6.3) % Lactic Acid 1.2 (0.4-2.0) mmol/L Calcium (8.5-10.1) mg/dL Total Bilirubin (0.20-1.00) mg/dL AST (15-37) U/L ALT (13-56) U/L Alkaline Phosphatase (45-117) U/L Troponin I (<0.045) ng/mL Total Protein (6.4-8.2) g/dL Albumin (3.2-5.0) g/dL Globulin (2.2-4.2) g/dL Albumin/Globulin Ratio (0.9-2.4) RATIO Lipase (73-393) U/L Urine Color [place] (Yellow) Urine Clarity Clear (Clear) Urine pH 5.0 (5.0 - 8.0) Ur Specific [place] 1.015 (1.002-1.030) Urine Protein 15 H (Negative) mg/dl Urine Glucose (UA) 1000 H (Normal) mg/dl Urine Ketones Negative (Negative) mg/dl Urine Occult Blood Negative (Negative) /ul Urine Nitrite Positive H (Negative) Urine Bilirubin 3 H (Negative) mg/dL Urine Urobilinogen 4 H (Normal) mg/dl Ur Leukocyte Esterase 25 H (Negative) /ul Urine RBC 0 SEEN (0-5) /hpf Urine WBC 0-5 SEEN (0-5) /hpf Ur Squamous Epith Cells 0-5 SEEN (5-10) /hpf Urine Bacteria RARE (None Seen) /hpf Urine Mucus 0 SEEN (<or=2+) /hpf POC Glucose (70-110) mg/dL 10/12/18 10/12/18 Range/Units 08:43 08:43 WBC 4.3 L (4.4-11.0) K/mm3 RBC 4.04 L (4.2-5.4) M/mm3 Hgb 12.1 (12.0-15.0) g/dl Hct 38.1 (37-47) % MCV 94.3 (81-99) fL MCH 30.0 (27.0-32.0) pg MCHC 31.8 L (32-36) g/gl RDW 14.3 (11.6-14.6) % RDW Differential 48.9 H (35.1-43.9) fl Plt Count 192 (150-450) K/mm3 MPV 10.3 (6.2-12.0) fl Immature Gran % (Auto) 0.000 (0.0-0.9) % Neut % (Auto) 57.8 (47-70) % Lymph % (Auto) 30.5 (19-41) % Rhea % (Auto) 5.8 (0-10) % Eos % (Auto) 5.4 H (0-5) % Baso % (Auto) 0.5 (0-1) % Absolute Neuts (auto) 2.5 (2.0-7.7) X10^3/uL Absolute Lymphs (auto) 1.31 (0.83-4.51) X10^3/ul Total Counted Not Reportable Sodium 137 (136-145) mmol/L Potassium 4.2 (3.5-5.1) mmol/L Chloride 106 (98-107) mmol/L Carbon Dioxide 27.0 (21.0-32.0) mmol/L Anion Gap 4 L (5-15) BUN 23 H (7-18) mg/dL Creatinine 0.97 (0.55-1.02) mg/dL Estim Creat Clear Calc 56.89 ml/min Est GFR (MDRD) Af Amer 76 (>60) mL/min Est GFR (MDRD) Non-Af 63 (>60) mL/min BUN/Creatinine Ratio 23.8 H (10-20) RATIO Glucose 113 H (74-106) mg/dL Hemoglobin A1c (4.2-6.3) % Lactic Acid (0.4-2.0) mmol/L Calcium 9.3 (8.5-10.1) mg/dL Total Bilirubin 0.50 (0.20-1.00) mg/dL AST 16 (15-37) U/L ALT 26 (13-56) U/L Alkaline Phosphatase 39 L (45-117) U/L Troponin I < 0.015 (<0.045) ng/mL Total Protein 7.4 (6.4-8.2) g/dL Albumin 4.0 (3.2-5.0) g/dL Globulin 3.4 (2.2-4.2) g/dL Albumin/Globulin Ratio 1.2 (0.9-2.4) RATIO Lipase 160 (73-393) U/L Urine Color (Yellow) Urine Clarity (Clear) Urine pH (5.0 - 8.0) Ur Specific [place] (1.002-1.030) Urine Protein (Negative) mg/dl Urine Glucose (UA) (Normal) mg/dl Urine Ketones (Negative) mg/dl Urine Occult Blood (Negative) /ul Urine Nitrite (Negative) Urine Bilirubin (Negative) mg/dL Urine Urobilinogen (Normal) mg/dl Ur Leukocyte Esterase (Negative) /ul Urine RBC (0-5) /hpf Urine WBC (0-5) /hpf Ur Squamous Epith Cells (5-10) /hpf Urine Bacteria (None Seen) /hpf Urine Mucus (<or=2+) /hpf POC Glucose (70-110) mg/dL none Operations: None Procedures: None Summary of Care Provided: The patient is a 57 year old F with a past medical history of hypertension, diabetes mellitus type 2, TIA, obesity, nephrolithiasis, osteoarthritis, diverticulosis, 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 She told me that she first noticed the pain on 10/11/2018 and it originated in the spine in the lower thoracic area. At admission the pain began radiating around the sides to the upper abdomen, left greater than right. She denied any radiation of the pain into her legs and also denied any bowel or bladder dysfunction. She had no weakness. The pain increased with movement and somewhat with taking a deep breath. She had some mild nausea but had not vomited. She had a normal bowel movement that morning at approximately 4 AM. Denied any problem with diarrhea or constipation. Vital signs at presentation to the emergency room were temperature 97.6, pulse rate 75, blood pressure 129/72, respiratory rate 17 and she was 100% saturated on room air. White blood cell count was 4.3 with an unremarkable differential. Hemoglobin was 12.1 and platelets were within normal limits. The BUN was elevated at 23 with a creatinine of 0.97 and she is on hydrochlorothiazide as an outpatient for blood pressure control. Random blood sugar was 113. Lactic acid was 1.2. LFTs were unremarkable and the troponin is less than 0.015. HGBA1C was 7.2. The UA was positive for nitrites however, the patient took to Azo prior to coming to the emergency room and this causes a false positive. There were 0-5 WBCs and she denied dysuria, urinary frequency or urinary urgency. She took the Azo because of the pain in the back because she thought she may have a kidney infection. CT scan of the abdomen and pelvis revealed possible ileus in the left upper quadrant with no evidence of small bowel obstruction. She had pain with palpation and percussion over the Lower thoracic vertebrae which radiated around the sides into the upper abdomen. She had no pain or guarding with deep palpation of the upper abd and there were no masses or HS appreciated. She was admitted to the hospital for observation and evaluation for the etiology of the sudden onset of severe back and abdominal pain. An MRI of the thoracic spine was obtained and showed multilevel degenerative disc disease with no significant foraminal stenosis or central canal stenosis. MRI of the lumbar spine showed a bulging disc at L4-L5 with disc space narrowing and moderate right and mild left foraminal stenoses. Patient denied any pain radiating into her legs and also denied numbness or weakness. The lumbar spine also showed multilevel degenerative disease. On 10/13/2018 she was afebrile with stable vital signs. She had a bowel movement in the morning and she felt hungry. The LUQ pain was much improved. she denied nausea. the diet was advance and she tolerated the advance without nausea, increased abdominal pain or back pain. She was discharged home and will follow up with Dr. Rivers in 5-7 days. She was tearful in the hospital. She has not been sleeping well and she feels overwhelmed with the care of her mother who has dementia and is in a NH but, she recently had BL hip fractures. Her sister who used to help with care and decision making has moved to [place] and she is feeling like she has too much responsibility. She also recently changed jobs. she has suffered from depression in the past....15 years ago when her father . She was on an antidepressant at that time for 3 months but, can not recall the name. She was willing to start an antidepressant and she was started on Zoloft 50 mg daily. I recommended she call her insurance company to see if psychotherapy would be covered and recommended counselling if it is. PHYSICAL EXAM: GENERAL: alert, oriented X 3, Cooperative, tearful ORAL: moist mucosa, no mucosal lesions NECK: No JVD, supple, trachea midline LUNGS: CTA, symmetric chest expansion HEART: RRR, Normal S1 and S2, no rub, no gallop ABDOMEN: soft, NT, ND, BS present, no guarding with palpation EXTREMITIES: no edema, no cyanosis, no calf tenderness SKIN: No rashes, no breakdown NEUROLOGIC: no focal neurologic deficits PSYCH: appropriate,depressed and tearful This note was generated with KBLE dictation software. It may contain incorrect words, spelling, and punctuation that were not noted in checking the note before signing. Patient Problems: Active and Suspected Problems Bulging of intervertebral disc between L4 and L5 (Acute) - Physical Exam Vital Signs Temp Pulse Resp BP Pulse Ox 97.8 F 70 18 114/57 L 98 10/13/18 08:48 10/13/18 08:48 10/13/18 08:48 10/13/18 08:48 10/13/18 08:48 Oxygen Delivery Method Room Air Weight: 201 lb Body Mass Index (BMI) 33.4 Finger Stick Blood Glucose 24 Intake and Output for Last 24 Hours 10/11/18 10/12/18 10/13/18 23:59 23:59 23:59 Intake Total 609 / 609 1820 / 1820 Output Total 1050 / 1050 950 / 950 Balance -441 / -441 870 / 870 Laboratory Tests Past 24 Hrs 10/12/18 08:43 Hemoglobin A1c 7.2 H POC Glucose 10/12/18 10/12/18 10/12/18 23:58 16:54 11:19 POC Glucose 80 97 83 Discharge Activity: Return to Normal Activity Return to work on:: 10/14/18 Call your doctor if you observe: Fever of 101 or Higher, Inability to have a bowel movement, Shortness of breath, Dizziness, Fainting spells, Swelling in the ankles, Uncontrolled pain, - - nausea and vomiting Home Medications: Medications to take at Discharge Allopurinol [Zyloprim] 300 mg PO DAILY 08/10/14 Ramipril [Altace] 5 mg PO DAILY 08/10/14 Sitagliptin Phosphate [Januvia] 100 mg PO DAILY 08/10/14 glipiZIDE [Glucotrol] 20 mg PO DAILY 08/10/14 Amlodipine [Norvasc] 5 mg PO DAILY #30 tablet 09/15/15 Aspirin E.C. [Ecotrin] 81 mg PO DAILY@0800 #30 tablet 09/15/15 metFORMIN HCl [Glucophage] 1,000 mg PO BIDCM #60 tablet 09/15/15 Pioglitazone [Actos] 15 mg PO DAILY 08/12/16 Simvastatin [Zocor] 40 mg PO QHS 08/12/16 Cholecalciferol (Vitamin D3) [Vitamin D3] 7,000 unit PO DAILY 03/06/17 Empagliflozin [Jardiance] 25 mg PO DAILY 03/06/17 Hydrochlorothiazide [Hctz] 25 mg PO DAILY 03/06/17 Magnesium Oxide [Magnesium] 400 mg PO DAILY 03/06/17 Sertraline HCl [Zoloft] 50 mg PO DAILY #30 tablet 10/13/18 Following Prescrptions Were Given to Patient: Sertraline HCl [Zoloft] 50 mg PO DAILY #30 tablet Primary Care Physician: Lashay Rivers DO [Primary Care Provider] - Please follow up with your Primary Care Physician in: 5-7 days Patient Instructions: Depression Affects Your Mind and Body, What Can Cause Depression?, Counseling for Depression, Depression: Tips to Help Yourself Disposition: Home Minutes spent on discharge:: 30 Patient Condition:: Good Medical Necessity - Tobacco Use Smoking Status: Never smoker Tobacco Use: Non-smoker Meaningful Use Info Meaningful Use Diagnoses (Choose all that apply): None applicable Code Visit OBSV E&M: 35193 Observation care discharge
[2018-10-13 11:45] LABS: Bedside Glucose 95 mg/dL (70-110)
[2018-10-13] MEDS: Sertraline 50 MG Tablet PO (11:53)
[2018-10-13 12:00] LABS: Bedside Glucose 89 mg/dL (70-110)
[2018-10-13 13:12] VITALS: BP 130/65; PULSE 84; RESP 18; TEMP 36.6; O2SAT 98
== END 2018-10-13 13:14 | disposition home or self-care (01) ==
LOC: ED 08:59 → MS3 10:17
PROVIDERS: Admitting Provider Internal Medicine; Emergency Provider Emergency Medicine; Family Provider Internal Medicine; PCP Internal Medicine; Visit Provider Internal Medicine
DX: R10.10 Upper abdominal pain, unspecified (principal); M50.20 Other cervical disc displacement, unspecified cervical region; R11.0 Nausea; I10 Essential (primary) hypertension; E78.5 Hyperlipidemia, unspecified; E11.9 Type 2 diabetes mellitus without complications; M19.90 Unspecified osteoarthritis, unspecified site; E66.9 Obesity, unspecified; K57.90 Diverticulosis of intestine, part unspecified, without perforation or abscess without bleeding; M51.36 Other intervertebral disc degeneration, lumbar region; M51.34 Other intervertebral disc degeneration, thoracic region; Z68.33 Body mass index [BMI] 33.0-33.9, adult; Z71.3 Dietary counseling and surveillance; Z79.899 Other long term (current) drug therapy; Z79.84 Long term (current) use of oral hypoglycemic drugs; Z79.82 Long term (current) use of aspirin; N28.1 Cyst of kidney, acquired; Z87.442 Personal history of urinary calculi
CPT/HCPCS: 72146; 72148; 74176; 80053; 81001; 82962; 83036; 83605; 83690; 84484; 85025; 93005; 96361; 96372; 96374; 96375; 99218; 99282; J7030; G0378; J2405

== ENCOUNTER → 2018-12-31 13:23 | Outpatient (CLI) | payer OTHER, SELFPAY ==
[2018-12-31 14:15] VITALS: BP 115/63; PULSE 70; RESP 16; TEMP 36.3; O2SAT 100; BMI 32.1
[2018-12-31 14:35] LABS: Absolute Lymphocyte Count 0.74 X10^3/uL (0.83-4.51); Absolute Neutrophil Count 4.8 X10^3/uL (2.0-7.7); Basophil# 0.02 X10^3/uL; Basophil% 0.3 % (0-1); Eosinophil# 0.04 X10^3/uL; Eosinophils% 0.7 % (0-5); Hemoglobin 12.6 g/dL (12.0-15.0); Lymphocyte # 0.74 X10^3/ul (4.0); Lymphocyte % 12.5 % (19-41); Mean Corp Hgb Conc 31.5 g/dL (32-36); Mean Corpuscular Hgb 29.4 pg (27.0-32.0); Mean Corpuscular Volume 93.5 fL (81-99); Mean Platelet Vol. 10.7 fl (6.2-12.0); Monocyte# 0.28 X10^3/uL; Monocyte% 4.7 % (0-10); NRBC Flagged by Analyzer 0 % (0-5); Neutrophil # 4.84 X10^3/uL (2.7-7.7); Neutrophil % 81.5 % (47-70); Platelet Count 205 K/mm3 (150-450); RBC Distribution Width CV 14.2 % (11.6-14.6); RBC Distribution Width SD 48.3 fl (35.1-43.9); Red Blood Count 4.28 M/mm3 (4.2-5.4); White Blood Count 5.9 K/mm3 (4.4-11.0)
[2018-12-31 14:54] LABS: ALB/GLOB Ratio 1.2 RATIO (0.9-2.4); AST(SGOT) 14 U/L (15-37); Alanine Aminotransfer ALT/SGPT 20 U/L (13-56); Albumin, Serum 3.8 g/dL (3.2-5.0); Alkaline Phosphatase 43 U/L (45-117); Anion Gap 7 (5-15); BUN 21 mg/dL (7-18); BUN/Creat Ratio 21.3 RATIO (10-20); Calcium,Total 9.4 mg/dL (8.5-10.1); Chloride 107 mmol/L (98-107); Creatinine, Serum 0.99 mg/dL (0.55-1.02); EST Glomerular Filtration Rate 61 mL/min (>60); Est Glom Filt Rate - Afr Amer 74 mL/min (>60); Estimated Creatinine Clearance 55.06 ml/min; Globulin 3.3 g/dL (2.2-4.2); Glucose 109 mg/dL (74-106); Potassium 4.2 mmol/L (3.5-5.1); Protein, Total 7.1 g/dL (6.4-8.2); Sodium Level 141 mmol/L (136-145)
[2018-12-31 14:56] LABS: Lactic Acid 1.8 mmol/L (0.4-2.0)
== END ==
LOC: ONC 13:28 → MEDOUTP 15:48
PROVIDERS: Family Provider Internal Medicine; PCP Internal Medicine; Referring Provider Internal Medicine; Visit Provider Internal Medicine
DX: E86.0 Dehydration (principal); R55 Syncope and collapse; R82.90 Unspecified abnormal findings in urine
CPT/HCPCS: 96360; 96361; 80053; 83605; 85025; 87086; 87088; A4216

== ENCOUNTER → 2019-02-06 07:58 | Outpatient (CLI) | payer OTHER, SELFPAY ==
[2018-12-31 14:15] VITALS: BMI 32.1
--- NOTE | 2019-02-06 08:10 | EKG12_ITS ---
Test Reason : PRE OP Blood Pressure : / mmHG Vent. Rate : 078 BPM Atrial Rate : 078 BPM P-R Int : 160 ms QRS Dur : 078 ms QT Int : 388 ms P-R-T Axes : 051 016 030 degrees QTc Int : 442 ms Normal sinus rhythm Cannot rule out Anterior infarct , age undetermined Abnormal ECG Confirmed by MUMTAZ LEO, ESTELA ([id number]), film or videotape editor LETICIA WHALEN ([id number]) on 02/12/2019 9:24:46 A M Referred By: Michele Osorio Confirmed By:DARRELL PANDYA MD
--- NOTE | 2019-02-06 08:22 | RAD_ITS ---
EXAM DESCRIPTION: PA and lateral CHEST CLINICAL HISTORY: 58 years Female, pre-op history of diabetes COMPARISON: Prior chest obtained on 05/09/2017 FINDINGS: The thorax is intact. The heart and mediastinum appear to be within normal limits. The lungs appear to be well areated without evidence of pneumonic consolidation or pleural effusion. RAD/Chest PA and Lateral IMPRESSION: Normal chest. Electronically Signed: Alexandru Peyton, at 9:06 EDT Tel , Service support ,
[2019-02-06 09:39] LABS: Hemoglobin A1c 6.5 % (4.2-6.3)
== END ==
PROVIDERS: Family Provider Internal Medicine; PCP Internal Medicine; Referring Provider Orthopaedic Surgery; Visit Provider Orthopaedic Surgery
DX: Z01.810 Encounter for preprocedural cardiovascular examination (principal); Z01.811 Encounter for preprocedural respiratory examination; E11.9 Type 2 diabetes mellitus without complications
CPT/HCPCS: 36415; 71046; 83036; 93005

== ENCOUNTER → 2019-03-04 06:43 | Outpatient (CLI) | payer OTHER, SELFPAY ==
[2018-12-31 14:15] VITALS: BMI 32.1
--- NOTE | 2019-03-04 06:47 | ECHOD_ITS ---
Reason For Study: Abn. EKG Procedure This was a 2D Doppler, Color Flow transthoracic echocardiogram. Exam performed in department. Left Ventricle Normal LV size. Sigmoid septum. Left ventricular systolic function is normal. The estimated ejection fraction is 65 %. Diastolic function is indeterminate. No regional wall motion abnormalities noted. Right Ventricle Normal RV size. Normal systolic function. Atria The left atrium is mildly enlarged. Normal right atrium. No doppler evidence for ASD. Mitral Valve There is no mitral annular calcification. Mild diffuse mitral valve thickening. Trivial mitral valve insufficiency. Tricuspid Valve Normal tricuspid valve. Trivial tricuspid valve insufficiency. Aortic Valve Trisinus/trileaflet aortic valve. Normal aortic valve. Pulmonic Valve The pulmonic valve is not well visualized. Trivial pulmonic valve insufficiency. Great Vessels Normal sized aortic root. Pericardium/Pleural No pericardial effusion. MMode/2D Measurements & Calculations LVIDd: 4.0 cm IVSd: 1.1 cm Ao root diam: 3.2 cm LVIDs: 2.0 cm LVPWd: 1.0 cm RVDd: 3.4 cm FS: 48.6 % LAV(MOD-bp): 57.1 ml EDV(MOD-sp4): 93.2 ml EDV(MOD-sp2): 98.8 ml LAV(MOD-bp) Indexed: 29.5 ml/m2 ESV(MOD-sp4): 32.5 ml EF(MOD-sp2): 62.8 % LAV(MOD-sp2): 51.3 ml EF(MOD-sp4): 65.2 % LAV(MOD-sp4): 57.8 ml SV(MOD-sp4): 60.8 ml SV(MOD-sp2): 62.0 ml LA A4 area: 20.0 cm2 LA dimension(2D): 4.3 cm RA A4 area: 16.6 cm2 Doppler Measurements & Calculations MV E max lavelle: 98.8 cm/sec Lat Peak E' Lavelle: 8.1 cm/sec Med Peak E' Lavelle: 6.6 cm/sec MV A max lavelle: 93.4 cm/sec E/E' lat: 12.2 E/E' med: 15.0 MV E/A: 1.1 Ao V2 max: 164.4 cm/sec LV V1 max: 139.9 cm/sec PA V2 max: 118.3 cm/sec Ao max P.8 mmHg LV V1 max P.8 mmHg Interpretation Summary Left ventricular systolic function is normal. The estimated ejection fraction is 65 %. Sigmoid septum. The left atrium is mildly enlarged. Mild diffuse mitral valve thickening. Trivial mitral valve insufficiency. Trivial tricuspid valve insufficiency. Trivial pulmonic valve insufficiency. Diastolic function is indeterminate. Ordering Physician: Silvestre, Lashay Referring Physician: Lashay Rivers Performed By: Trixie Joyner RDCS
--- NOTE | 2019-03-04 14:42 | STRESSREP_ITS ---
Stress Test Report Date: 03-04-19 Procedure: Pharmacologic stress nuclear imaging study Indications: Abnormal ECG Consent: Per the patient Procedure: The patient underwent pharmacologic (Regadenoson) evaluation with a peak heart rate of 99 beats per minute (61 %predicted maximal heart rate) and a peak blood pressure of 148/70 mmHg. The baseline ECG demonstrated normal sinus rhythm. The peak pharmacologic ECG demonstrated no obvious ECG changes. There were no cardiac dysrhythmias pretest, during pharmacologic infusion, or recovery. There was no complaint of chest discomfort during pharmacologic infusion or recovery. The examination was discontinued secondary to completion of protocol. Impression: 1. Pharmacologic (Regadenoson) evaluation 2. Peak pharmacologic ECG with no obvious ECG changes. 3. There were no cardiac dysrhythmias pretest, during pharmacologic infusion, or recovery. 4. Nuclear images pending Myocardial perfusion imaging study: Technique: The patient was injected with 13.5 millicuries of technetium 99m Cardiolite and subsequently rest SPECT Cardiolite nuclear imaging was obtained in the horizontal long, vertical long, and short axis views. The patient underwent pharmacologic (Regadenoson) evaluation with a peak heart rate of 99 beats per minute (61 % percent predicted maximal heart rate) and a peak blood pressure of 148/70 mmHg. The patient was injected with 41.0 millicuries of technetium 99m Cardiolite and subsequently stress SPECT Cardiolite nuclear imaging was obtained in the horizontal long, vertical long, and short axis views. A gated Cardiolite study at peak stress was obtained. Interpretation: Rest and stress SPECT Cardiolite nuclear imaging status post realignment, normalization, and attenuation correction demonstrate relative uniform tracer uptake and myocardial perfusion appearing within normal limits. There is end systolic thickening and brightening. The gated Cardiolite study demonstrates myocardial thickening and inward wall motion. The reported LVEF is 82 %. Impression: 1. Rest and stress SPECT Cardiolite nuclear imaging demonstrate relative uniform tracer uptake and myocardial perfusion appearing within normal limits. 2. The gated Cardiolite study reports an LVEF of 82 %. This note was generated with Amp[employer] software. It may contain incorrect words, spelling, and punctuation that were not noted in checking the note before signing.
== END ==
PROVIDERS: Family Provider Internal Medicine; PCP Internal Medicine; Referring Provider Internal Medicine; Visit Provider Internal Medicine
DX: R94.31 Abnormal electrocardiogram [ECG] [EKG] (principal)
CPT/HCPCS: 78452; 93017; 93306; A9500; A4216; J2785

== ENCOUNTER → 2019-07-02 15:01 | Outpatient (CLI) | payer OTHER, SELFPAY ==
[2018-12-31 14:15] VITALS: BMI 32.1
--- NOTE | 2019-07-02 15:08 | VDLE_ITS ---
Reason For Study: Pain Rt calf RIGHT LEFT FV is compressible, spontaneous, phasic, GSV is normal. competent and demonstrates normal CFV is compressible, spontaneous, phasic, augmentation. competent, and demonstrates normal POP V is compressible, spontaneous, phasic, augmentation. competent and demonstrates normal FV is compressible, spontaneous, phasic, augmentation. competent and demonstrates normal Right CFV is partially compressible from clot augmentation. extending from the deep femoral vein. POP V is compressible, spontaneous, phasic, Acute deep vein thombosis is noted in the competent and demonstrates normal right deep femoral vein, T/P Trunk, PTV, augmentation. PeroV, SoleusV, GastrocV. T/P Trunk is compressible. Thrombus filled varicose veins are noted in PTV is compressible. the right posterior calf from prox to mid. LT PerV is compressible. GSV is partially compressible with bright intraluminal echoes consistent with chronic SVT. Procedure Exam performed in department. A preliminary report was called and/or faxed to [facility]. Pt sent to ED. Interpretation Summary Acute deep vein thrombosis is noted in the right common femoral vein. Acute deep vein thrombosis is noted in the right profunda femoris vein. Acute deep vein thrombosis is noted in the right tibio- peroneal trunk. Acute deep vein thrombosis is noted in the right posterior tibial vein. Acute deep vein thrombosis is noted in the right peroneal vein. Acute deep vein thrombosis is noted in the right soleus vein. Acute deep vein thrombosis is noted in the right gastrocnemius vein. The right femoral vein and popliteal vein are patent, compressible, and competent. Deep veins in the left lower extremity are patent and compressible. There is no evidence of left lower extremity deep vein thrombosis. The proximal left lower extremity deep venous system is competent. Chronic venous changes are noted in the right great saphenous vein, which is partially compressible and demonstrates bright intraluminal echogenicity. Acute superficial thrombophlebitis is noted involving superficial varicosities in the right proximal and mid-posterior calf. The left great saphenous vein is patent and compressible segmentally. Ordering Physician: Lashay Rivers Referring Physician: Lashay Rivers Performed By: Daphnie Santana RVT
== END ==
PROVIDERS: PCP Internal Medicine; Referring Provider Internal Medicine; Visit Provider Internal Medicine
DX: M79.661 Pain in right lower leg (principal)
CPT/HCPCS: 93970

== ENCOUNTER 2019-07-02 15:57 | Emergency (ER) | payer OTHER, SELFPAY ==
[2018-12-31 14:15] VITALS: BMI 32.1
[2019-07-02 15:59] VITALS: BP 141/81; PULSE 95; RESP 16; TEMP 36.6; O2SAT 98; BMI 30.7
[2019-07-02 17:22] LABS: Absolute Lymphocyte Count 0.83 X10^3/uL (0.83-4.51); Absolute Neutrophil Count 2.8 X10^3/uL (2.0-7.7); Basophil# 0.02 X10^3/uL; Basophil% 0.5 % (0-1); Eosinophil# 0.13 X10^3/uL; Eosinophils% 3.2 % (0-5); Hematocrit 39.3 % (37-47); Hemoglobin 12.2 g/dL (12.0-15.0); Lymphocyte # 0.83 X10^3/ul (4.0); Lymphocyte % 20.6 % (19-41); Mean Corpuscular Hgb 29.3 pg (27.0-32.0); Mean Corpuscular Volume 94.2 fL (81-99); Mean Platelet Vol. 10.6 fl (6.2-12.0); Monocyte# 0.21 X10^3/uL; Monocyte% 5.2 % (0-10); NRBC Flagged by Analyzer 0 % (0-5); Neutrophil # 2.83 X10^3/uL (2.7-7.7); Neutrophil % 70.3 % (47-70); Platelet Count 196 K/mm3 (150-450); RBC Distribution Width CV 14.6 % (11.6-14.6); RBC Distribution Width SD 50.1 fl (35.1-43.9); Red Blood Count 4.17 M/mm3 (4.2-5.4)
[2019-07-02 17:32] LABS: Anion Gap 5 (5-15); BUN 19 mg/dL (7-18); BUN/Creat Ratio 20.7 RATIO (10-20); Calcium,Total 8.9 mg/dL (8.5-10.1); Chloride 106 mmol/L (98-107); Creatinine, Serum 0.92 mg/dL (0.55-1.02); EST Glomerular Filtration Rate 67 mL/min (>60); Est Glom Filt Rate - Afr Amer 81 mL/min (>60); Estimated Creatinine Clearance 59.25 ml/min; Glucose 157 mg/dL (74-106); Potassium 3.7 mmol/L (3.5-5.1); Sodium Level 140 mmol/L (136-145)
--- NOTE | 2019-07-02 17:43 | ED.VISSUMM ---
- ER Visit Summary Date of Service: 07/02/19 Chief Complaint: DVT History of Present Illness: The patient is a [address] Rivers and Dr. Michele Osorio. She had a right total knee replacement on June [address] Osorio. States that she began having pain in her right calf approximately a week ago. She was sent for an ultrasound today that showed that she had a DVT. She was then sent to the emergency department. Patient reports that she has right knee pain is 4-10 in severity. States it is been improving since the surgery. She feels like she has good range of motion. She denies any constitutional symptoms. No fever, chills, nausea, or vomiting. She also denies any chest pain or shortness of breath. Physical Examination: Vitals: Stable. Afebrile. General: Well-nourished and well-developed. Head: Normocephalic atraumatic. Neck: Supple, no lymphadenopathy. No JVD. Nontender. Cardiovascular: Regular rate and rhythm. No murmurs. Respiratory: No respiratory distress. Clear to auscultation bilaterally. Abdominal: Soft, nontender, nondistended, normal bowel sounds. No guarding, rebound, or peritoneal signs. Back: Nontender. Extremities: Well-healed incision over the anterior surface of her right knee. There is no erythema or warmth she has minimal pain with range of motion to approximately 90 degrees. She does have mild tenderness palpation in her calf. There is 1+ pitting edema. Skin: Normal color, no rash. Neurologic: Alert and oriented ?3. Cranial nerves II through XII are intact. Normal strength and sensation. Psych: Normal affect. Test Results: Doppler shows DVT in the right deep femoral, TP trunk, PT V, peroneal vein, soleus vein, and gastrocnemius vein. CBC shows a white count of 4. Chem-7 shows a BUN of 19 and glucose 157. Emergency Department Course and Treatment: Patient was treated with Eliquis. She refused pain medications. Treatment Plan: Patient was discussed with Dr. Michele Osorio and Dr. Santamaria. She will be discharged on Eliquis. Instructed to follow-up Dr. Osorio as previously scheduled. Follow-up Dr. Rivers in 1 to 2 weeks for another exam. Return to the emergency department for any worsening symptoms. Disposition: To home in improved and stable condition. Impression: 1. DVT right leg. This note was generated with Vide[employer] dictation software. It may contain incorrect words, spelling, and punctuation that were not noted in review of the chart prior to signing ED Disposition - Plan for ED Patient: Disposition: Home or Assisted Living Instructions: Dvt Prescriptions: Apixaban [Eliquis] 5 mg PO BID 72 Days tab Prescription Printed Referrals: Lashay Rivers DO [Primary Care Provider] - 1-2 Weeks Michele Osorio MD [STAFF PHYSICIAN] - Keep Wilfredo appointment
[2019-07-02 17:55] VITALS: BP 119/61; PULSE 74; RESP 16; O2SAT 98
[2019-07-02] MEDS: APIXABAN 5 MG TABLET 10 MG PO (18:32)
[2019-07-02 18:37] VITALS: RESP 17
== END 2019-07-02 18:37 | disposition home or self-care (01) ==
LOC: ED 17:15
PROVIDERS: Emergency Provider Emergency Medicine; PCP Internal Medicine
DX: I82.411 Acute embolism and thrombosis of right femoral vein (principal); I82.451 Acute embolism and thrombosis of right peroneal vein; I82.461 Acute embolism and thrombosis of right calf muscular vein; I82.441 Acute embolism and thrombosis of right tibial vein; E11.9 Type 2 diabetes mellitus without complications; I10 Essential (primary) hypertension; Z79.84 Long term (current) use of oral hypoglycemic drugs; Z79.82 Long term (current) use of aspirin; Z79.899 Other long term (current) drug therapy; Z96.651 Presence of right artificial knee joint
CPT/HCPCS: 36415; 80048; 85025; 99282

== ENCOUNTER → 2019-07-11 11:38 | Outpatient (CLI) | payer OTHER, SELFPAY ==
[2019-07-02 15:59] VITALS: BMI 30.7
--- NOTE | 2019-07-11 11:41 | CT_ITS ---
STUDY: CTA CHEST REASON FOR EXAM: Female, 58 years old. CHEST PAIN, KNOWN DVT RT LEG RADIATION DOSAGE (If Supplied By Facility): CTDIvol = ( 15.49 ) mGy, DLP = ( 517.74 ) mGycm TECHNIQUE: The examination was performed with the intravenous administration of 100ML ISOVUE 370. Post-processing of the angiographic images was performed, with multiplanar reformation and 3D reconstruction. Individualized dose optimization techniques were used for this CT. COMPARISON: None. FINDINGS: Small benign-appearing bilateral axillary lymph nodes. Normal enhancement of the main pulmonary artery and right and left pulmonary arteries. Normal enhancement of the bilateral peripheral pulmonary arteries. There is no demonstrated pulmonary embolism. Normal thoracic aorta and visualized great vessels. There is no demonstrated aortic dissection. There are calcifications of the coronary arteries. Normal mediastinum. Normal hilar regions. Normal visualized trachea and bronchi. The lungs are well expanded. Normal pulmonary parenchyma. Normal pleura. Normal chest wall structures. There are degenerative changes of thoracic spine. The patient is status post cholecystectomy. Atrophy of the right kidney with cysts. Small hiatal hernia. CT/CTA Chest W/WO Contrast IMPRESSION: Normal CTA chest examination, without a demonstrated pulmonary embolism or arterial dissection. Electronically Signed: Sotero Hamlin, at 12:35 EDT , Service support ,
== END ==
PROVIDERS: PCP Internal Medicine; Referring Provider Internal Medicine; Visit Provider Internal Medicine
DX: R07.9 Chest pain, unspecified (principal)
CPT/HCPCS: 71275; Q9967

== ENCOUNTER → 2019-08-06 09:36 | Outpatient (CLI) | payer OTHER, SELFPAY ==
--- NOTE | 2019-08-06 09:39 | VDLE_ITS ---
Reason For Study: DVT RIGHT CFV is compressible, spontaneous, phasic, competent and demonstrates normal augmentation. FV is compressible, spontaneous, phasic, competent and demonstrates normal augmentation. POP V is compressible, spontaneous, phasic, competent and demonstrates normal augmentation. RT PerV is compressible. T/P Trunk, PTV, Gastroc V, and Soleus V are partially compressible. Mild improvement noted from previuos study done 07/02/19. Thrombus filled varicose veins are noted in the right posterior calf from prox to mid. GSV is partially compressible with bright intraluminal echoes consistent with chronic SVT. Procedure The exam was abbreviated due to the COVID 19 protocol. The exam was diagnostic. Interpretation Summary Acute deep vein thrombosis is noted in the right tibio-peroneal trunk. Acute deep vein thrombosis is noted in the right posterior tibial vein. Acute deep vein thrombosis is noted in the right gastrocnemius vein. Acute deep vein thrombosis is noted in the right soleus vein. The remainder of the right lower extremity deep venous system is patent and compressible. Valvular competence appears intact within the proximal deep venous system on the right . Chronic venous changes are noted in the right great saphenous vein, which is partially compressible and demonstrates bright intraluminal echogenicity. Acute superficial thrombophlebitis is noted involving superficial varicosities in the right proximal and mid-posterior calf. There has been mild improvement in the acute deep vein thrombosis since a prior study on 07/02/2019. Ordering Physician: Lashay Rivers Performed By: Ananda Garcia RVT
== END ==
PROVIDERS: PCP Internal Medicine; Referring Provider Internal Medicine; Visit Provider Internal Medicine
DX: I82.441 Acute embolism and thrombosis of right tibial vein (principal); I82.451 Acute embolism and thrombosis of right peroneal vein; I82.461 Acute embolism and thrombosis of right calf muscular vein
CPT/HCPCS: 93971

== ENCOUNTER → 2019-09-08 09:37 | Outpatient (CLI) | payer OTHER, SELFPAY ==
--- NOTE | 2019-09-08 09:46 | VDLE_ITS ---
Reason For Study: F/U DVT RIGHT CFV is compressible, spontaneous, phasic, competent and demonstrates normal augmentation. FV is compressible, spontaneous, phasic, competent and demonstrates normal augmentation. POP V is compressible, spontaneous, phasic, competent and demonstrates normal augmentation. RT PerV is compressible. GSV is partially compressible with bright intraluminal echoes consistent with chronic SVT. PTV is now compressible. Gastrocnemius V is now compressible. PROX PFV is noncompressible. PFV is compressible at bifurcation. Procedure Exam performed in department. The study was technically difficult. Interpretation Summary Acute deep vein thrombosis is noted in the right proximal profunda femoris vein. The remainder of the right lower extremity deep venous system is patent and compressible, demonstrating improvement in the acute deep vein thrombosis noted in a prior study on 08/06/2019. The right common femoral vein, femoral vein, and popliteal vein are competent. Chronic venous changes are noted in the right great saphenous vein, which is partially compressible and demonstrates bright intraluminal echogenicity. Ordering Physician: Lashay Rivers Referring Physician: Lashay Rivers Performed By: Vy Nieves, OLLIE, RVT
== END ==
PROVIDERS: PCP Internal Medicine; Referring Provider Internal Medicine; Visit Provider Internal Medicine
DX: I82.411 Acute embolism and thrombosis of right femoral vein (principal)
CPT/HCPCS: 93971

== ENCOUNTER → 2019-11-10 10:00 | Outpatient (CLI) | payer OTHER, SELFPAY ==
--- NOTE | 2019-11-10 10:02 | VDLE_ITS ---
Reason For Study: DVT RIGHT LEFT CFV is compressible, spontaneous, phasic, CFV is compressible, spontaneous, phasic, competent and demonstrates normal competent, and demonstrates normal augmentation. augmentation. FV is compressible, spontaneous, phasic, competent and demonstrates normal augmentation. POP V is compressible, spontaneous, phasic, competent and demonstrates normal augmentation. T/P Trunk is compressible. PTV is compressible. RT PerV is compressible. GSV is partially compressible with bright intraluminal echoes noted, consistent with chronic DVT. Rigth ProfundaV is compressible. Procedure Exam performed in department. Compared to 09/08/2019. A preliminary report was called and/or faxed to Silvestre. Interpretation Summary Deep veins of the right lower extremity are patent and compressible segmentally. There is no evidence of right lower extremity deep vein thrombosis. Valvular competence appears intact within the proximal deep venous system on the right . Chronic venous changes are noted in the right great saphenous vein, which is partially compressible and demonstrates bright intraluminal echogenicity. Ordering Physician: Lashay Rivers Referring Physician: Lashay Rivers Performed By: Daphnie Santana RVT and Student
== END ==
PROVIDERS: PCP Internal Medicine; Referring Provider Internal Medicine; Visit Provider Internal Medicine
DX: I82.409 Acute embolism and thrombosis of unspecified deep veins of unspecified lower extremity (principal)
CPT/HCPCS: 93971

== ENCOUNTER → 2019-12-19 13:14 | Outpatient (CLI) | payer OTHER, SELFPAY ==
--- NOTE | 2019-12-19 13:16 | VDLE_ITS ---
Reason For Study: Rt leg pain RIGHT LEFT CFV is compressible, spontaneous, phasic, CFV is compressible, spontaneous, phasic, competent and demonstrates normal competent, and demonstrates normal augmentation. augmentation. FV is compressible, spontaneous, phasic, competent and demonstrates normal augmentation. POP V is compressible, spontaneous, phasic, competent and demonstrates normal augmentation. T/P Trunk is compressible. PTV is compressible. RT PerV is compressible. GSV is partially compressible with bright intraluminal echoes noted, consistent with chronic DVT. Acute superficial vein thrombosis is noted in the right SSV mid calf. Thrombus filled varicose veins noted in the right posterior prox-mid calf. Procedure Exam performed in department. A preliminary report was called and/or faxed to [facility]. Interpretation Summary Deep veins of the right lower extremity are patent and compressible segmentally. There is no evidence of right lower extremity deep vein thrombosis. Valvular competence appears intact within the proximal deep venous system on the right . Chronic venous changes are noted in the right great saphenous vein, which is partially compressible and demonstrates bright intraluminal echogenicity. Acute superficial thrombophlebitis is noted in the right small saphenous vein in the mid-calf. Acute superficial thrombophlebitis is noted involving superficial varicosities in the posterior right proximal and mid-calf. Ordering Physician: Camilla Mejia Referring Physician: Lashay Rivers M.D. Performed By: Daphnie Santana RVT
== END ==
PROVIDERS: PCP Internal Medicine; Referring Provider Nurse Practitioner; Visit Provider Nurse Practitioner
DX: M79.604 Pain in right leg (principal); Z86.718 Personal history of other venous thrombosis and embolism
CPT/HCPCS: 93971

== ENCOUNTER → 2020-05-21 | Outpatient (CLI) | payer OTHER, SELFPAY ==
--- NOTE | 2020-05-21 10:20 | LIP_PTH ---
PATIENT: JAYLEN WESLEY LOC: [facility] U#:[id number] AGE/SX: 59/F ROOM: RE05/21/[address]: Dr. Michelle Bloom MD : 1960 BED: DIS: 05/21/2020 SPEC #: [id number] RECD: 05/21/20 16:03 STATUS: KARI JOHNNA #: [id number] [place]: 05/21/20 10:[address]: Michelle Bloom DEPT: SURGICAL PATHOLOGY RECD BY: Maria C Paulino ENTERED: 05/24/20 07:45 SP TYPE: LIPOMA OTHR DR: Dr. Lashay Rivers, DO Tissues: Soft tissues, NOS Procedures: Surgery Specimen Level III HEADER OPERATION: Excision of right medial elbow lipoma PRE-OP DIAGNOSIS: Lipoma of right upper extremity TISSUE SUBMITTED: Right medial elbow lipoma MICROSCOPIC DIAGNOSIS Right medial elbow lipoma, excision: Mature adipose tissue, consistent with lipoma. SJ:miquel 05/25/2020 MICROSCOPIC DESCRIPTION Slides are reviewed. GROSS DESCRIPTION Received in fixative is one container labeled with the patient's name and designated right medial elbow lipoma. The specimen consists of a piece of yellow adipose tissue measuring 3.5 x 3 x 2 cm. Sections reveal yellow adipose cut surfaces without area of hemorrhage, necrosis or cystic degeneration. Technical Support Analyst sections are submitted in one cassette. / CORRY:miquel 05/24/20 TC:1 CPT: [id number]
== END | disposition home or self-care (01) ==
LOC: LABSPEC 16:17
PROVIDERS: PCP Internal Medicine; Referring Provider Surgery; Visit Provider Surgery
DX: D17.21 Benign lipomatous neoplasm of skin and subcutaneous tissue of right arm (principal)
CPT/HCPCS: 88304

== ENCOUNTER → 2020-07-19 15:25 | Outpatient (CLI) | payer OTHER, SELFPAY ==
--- NOTE | 2020-07-19 15:28 | VDLE_ITS ---
Reason For Study: Pain in Rt Calf RIGHT LEFT GSV is normal. CFV is compressible, spontaneous, phasic, CFV is compressible, spontaneous, phasic, competent, and demonstrates normal competent and demonstrates normal augmentation. augmentation. FV is compressible, spontaneous, phasic, competent and demonstrates normal augmentation. POP V is compressible, spontaneous, phasic, competent and demonstrates normal augmentation. T/P Trunk is compressible. PTV is compressible. RT PerV is compressible. Rt GastrocV is dilated and non compressible consistent with acute DVT Rt GSV and a varicosity behind the knee are partially compressible with bright intraluminal echoes consistent with chronic SVT. Procedure Exam performed in department. A preliminary report was called and/or faxed to [facility]. Interpretation Summary Acute deep vein thrombosis is noted in the right gastrocnemius vein. The remainder of the right lower extremity deep venous system is patent and compressible. Valvular competence appears intact within the proximal deep venous system on the right . Chronic venous changes are noted in the right great saphenous vein and a superficial varicosity in the right popliteal area. Ordering Physician: Lashay Rivers Referring Physician: Lashay Rivers Performed By: Lauren Alcantar, OLLIE, RVT
== END ==
PROVIDERS: PCP Internal Medicine; Referring Provider Internal Medicine; Visit Provider Internal Medicine
DX: M79.661 Pain in right lower leg (principal)
CPT/HCPCS: 93971

== ENCOUNTER → 2020-08-11 14:39 | Outpatient (CLI) | payer OTHER, SELFPAY ==
--- NOTE | 2020-08-11 14:40 | VDLE_ITS ---
Reason For Study: Leg Pain RIGHT GSV is normal. CFV is compressible, spontaneous, phasic, competent and demonstrates normal augmentation. FV is compressible, spontaneous, phasic, competent and demonstrates normal augmentation. POP V is compressible, spontaneous, phasic, competent and demonstrates normal augmentation. T/P Trunk is compressible. PTV is compressible. RT PerV is compressible. Rt GastrocV is dilated and partially compressible, some improvement from previous study Rt GSV is partially compressible with bright intraluminal echoes consistent with chronic SVT. VL/Venous Duplex US, Unilateral Interpretation Summary Acute deep vein thrombosis is noted in the right gastrocnemius vein, with sligh t improvement from a prior study on 07/19/2020. The remainder of the right lower extremity deep venou s system is patent and compressible. Valvular competence appears intact within the proximal deep v enous system on the right . Chronic venous changes are noted in the right great saphenous vein, whi ch is partially compressible and demonstrates bright intraluminal echogenicity, relatively unch anged from a prior study on 07/19/2020. Ordering Physician: Camilla Mejia Referring Physician: Lashay Rivers Performed By: Lauren Alcantar RDCS, RVT
== END ==
PROVIDERS: PCP Internal Medicine; Referring Provider Nurse Practitioner; Visit Provider Nurse Practitioner
DX: M79.604 Pain in right leg (principal); I82.461 Acute embolism and thrombosis of right calf muscular vein
CPT/HCPCS: 93971

== ENCOUNTER → 2020-09-24 15:15 | Outpatient (CLI) | payer OTHER, SELFPAY ==
[2020-09-24 15:53] LABS: Potassium 4.5 mmol/L (3.5-5.1)
== END ==
PROVIDERS: PCP Internal Medicine; Referring Provider Internal Medicine; Visit Provider Internal Medicine
DX: E87.6 Hypokalemia (principal)
CPT/HCPCS: 36415; 84132

== ENCOUNTER 2020-09-29 12:51 | Emergency (ER) | payer OTHER, SELFPAY ==
[2020-09-29 12:52] VITALS: BP 116/78; PULSE 89; RESP 17; TEMP 36.8; O2SAT 91; BMI 31.6
--- NOTE | 2020-09-29 13:09 | EKG12_ITS ---
Test Reason : CP Blood Pressure : / mmHG Vent. Rate : 083 BPM Atrial Rate : 083 BPM P-R Int : 160 ms QRS Dur : 078 ms QT Int : 368 ms P-R-T Axes : 051 -07 029 degrees QTc Int : 432 ms Normal sinus rhythm Inferior infarct , age undetermined Anterior infarct , age undetermined Abnormal ECG Confirmed by MUMTAZ LEO, ESTELA ([id number]), business editor LETICIA WHALEN ([id number]) on 09/30/2020 12:51:38 PM Referred By: RAMILA Confirmed By:DARRELL PANDYA MD
[2020-09-29 13:18] LABS: Absolute Lymphocyte Count 0.99 X10^3/uL (0.83-4.51); Absolute Neutrophil Count 3.1 X10^3/uL (2.0-7.7); Basophil# 0.02 X10^3/uL; Basophil% 0.4 % (0-1); Eosinophil# 0.12 X10^3/uL; Eosinophils% 2.7 % (0-5); Hematocrit 42.6 % (37-47); Hemoglobin 13.4 g/dL (12.0-15.0); Lymphocyte # 0.99 X10^3/ul (0.83-4.51); Mean Corp Hgb Conc 31.5 g/dL (32-36); Mean Corpuscular Hgb 30.7 pg (27.0-32.0); Mean Corpuscular Volume 97.5 fL (81-99); Mean Platelet Vol. 10.5 fl (6.2-12.0); Monocyte# 0.21 X10^3/uL; Monocyte% 4.7 % (0-10); NRBC Flagged by Analyzer 0 % (0-5); Neutrophil # 3.14 X10^3/uL (2.7-7.7); Platelet Count 208 K/mm3 (150-450); RBC Distribution Width CV 14.6 % (11.6-14.6); Red Blood Count 4.37 M/mm3 (4.2-5.4); White Blood Count 4.5 K/mm3 (4.4-11.0)
--- NOTE | 2020-09-29 13:20 | CT_ITS ---
STUDY: CTA CHEST REASON FOR EXAM: Female, 59 years old. Chest pain, hx of dvt RADIATION DOSAGE (If Supplied By Facility): CTDIvol = ( 9.82 ) mGy, DLP = ( 354.78 ) mGycm TECHNIQUE: The examination was performed with the intravenous administration of 100CC ISOVUE 370. Post-processing of the angiographic images was performed, with multiplanar reformation and 3D reconstruction. Individualized dose optimization techniques were used for this CT. COMPARISON: Comparison is made with prior study 07/11/2019. FINDINGS: Normal enhancement of the main pulmonary artery and right and left pulmonary arteries. Normal enhancement of the bilateral peripheral pulmonary arteries. There is no demonstrated pulmonary embolism. Normal thoracic aorta and visualized great vessels. There is no demonstrated aortic dissection. There are calcifications of the coronary arteries. Normal mediastinum. Normal hilar regions. Normal visualized trachea and bronchi. The lungs are well expanded. Normal pulmonary parenchyma. Normal pleura. Normal chest wall structures. Normal osseous structures. Small hiatal hernia. Status post cholecystectomy. Right renal atrophy. CT/CTA Chest W/WO Contrast IMPRESSION: Normal CTA chest examination, without a demonstrated pulmonary embolism or arterial dissection. Electronically Signed: Sotero Hamlin MD at 14:21 EDT , Service support ,
--- NOTE | 2020-09-29 13:21 | EDS_ITS ---
HPI History of Present Illness Chief Complaint: Chest Pain Detail of Chief Complaint: Patient presents to the emergency department the chest pain that started ab Informant: patient and spouse/S.O. Onset/Context/Timing Location: Right Parasternal Current Severity: 5/10 Worsened By: Movement of Torso and Breathing Relieved By: Nothing Narrative CVD Risk Factors: Positive for Hypertension, Diabetes and Hypercholesterolemia PE Risk Factors: Positive for Prior DVT or PE [facility] Medical History (Updated 09/29/20 @ 14:[address] Lorene Ramirez, DO) Abdominal pain Acute bilateral thoracic back pain Bulging of intervertebral disc between L4 and L5 Dehydration Depression Diabetes mellitus type 2 in obese Diverticulosis DVT (deep venous thrombosis) Headache Hyperlipidemia Hypertension Leukopenia Mass of right upper extremity Nephrolithiasis Obesity (BMI 30.0-34.9) Osteoarthritis TIA (transient ischemic attack) Home Medications allopurinol 300 mg PO DAILY 08/10/14 [History Last Taken 10/11/18] ramipril 5 mg PO DAILY 08/10/14 [History Last Taken 10/11/18] aspirin 81 mg PO DAILY@0800 #30 tab 09/15/15 [Rx Last Taken 10/11/18] cholecalciferol (vitamin D3) 7,000 unit PO DAILY 03/06/17 [History Last Taken 10/11/18] empagliflozin [Jardiance] 25 mg PO DAILY 03/06/17 [History Last Taken 10/11/18] sertraline 50 mg PO DAILY #30 tab 10/13/18 [Rx Last Taken Unknown] ascorbic acid (vitamin C) 1,000 mg tablet 1 g PO DAILY tab 05/14/20 [History Last Taken Unknown] glipizide 10 mg tablet 10 mg PO DAILY tab 05/14/20 [History Last Taken Unknown] lisinopril 10 mg tablet 10 mg PO BID 05/14/20 [History Last Taken Unknown] metformin 1,000 mg tablet 500 mg PO BIDCM tab 05/14/20 [History Last Taken Unknown] turmeric root extract 500 mg capsule 500 mg PO DAILY 05/21/20 [History Last Taken Unknown] apixaban [Eliquis] 5 mg PO BID 09/29/20 [History Last Taken Unknown] magnesium oxide 400 mg PO DAILY 09/29/20 [History Last Taken Unknown] pioglitazone [Actos] 15 mg PO DAILY 09/29/20 [History Last Taken Unknown] semaglutide [Ozempic] 2 mg SUBCUT QWEEK 09/29/20 [History Last Taken Unknown] Allergy/AdvReac Type Severity Reaction Status Date / Time Quinolones Allergy Swelling Verified 09/29/20 12:54 codeine AdvReac Nausea Verified 09/29/20 12:54 Family History (Updated 05/14/20 @ 10:02 by Vy Fuentes) Brother Colon cancer Diabetes Father Diabetes Hypertension High cholesterol Mother Heart disease High cholesterol Hypertension Surgical History (Updated 05/14/20 @ 09:59 by Vy Fuentes) History of total right knee replacement History of tubal ligation Hx of lithotripsy Social History (Updated 05/31/20 @ 12:[address] Michelle Bloom MD) Smoking Status: Never smoker alcohol intake: never substance use type: does not use ROS ROS ED Review of Systems ROS Unobtainable: other Constitutional Constitutional ED: Reports lethargy; Denies chills, fever(s), sweats or weight loss Eyes Eyes: Denies blurry vision, change in vision or diplopia ENT ENT ED: Denies rhinorrhea or sore throat Cardiovascular Cardiovascular: Reports chest pain and racing heartbeat; Denies orthopnea Respiratory/Chest Respiratory/Chest: Reports dyspnea on exertion; Denies cough, dyspnea, orthopnea or sputum Gastrointestinal Gastrointestinal: Denies abdominal pain, diarrhea, nausea or vomiting Genitourinary Genitourinary ED: Denies dysuria, hematuria or urinary frequency Musculoskeletal Musculoskeletal: Denies arthralgias, back pain, myalgias or neck pain Integumentary Denies abscess, Abrasions or rash Neurologic Neurologic: Denies headache(s) or weakness Psychiatric Psychiatric: Denies anxiety, depression or suicidal thoughts Endocrine Endocrinology: Denies polydipsia, polyphagia or polyuria Hematologic/Lymphatic Hematologic/Lymphatic: Denies easy bleeding, easy bruising or lymphadenopathy Allergic/Immunologic Allergic/Immunologic ED: Denies mouth swelling, tongue swelling or urticaria EXAM Physical Exam Const Vital Signs: 09/29/20 12:52 09/29/20 13:32 Temperature 98.2 F Temperature Source Temporal Pulse Rate 89 Respiratory Rate 17 Blood Pressure 116/78 Blood Pressure Mean 90 Pulse Ox 91 96 Oxygen Delivery Method Room Air Room Air Positive well nourished and well developed General Appearance ED: well developed and NAD HEENT Reports TM's clear and moist mucous membranes normocephalic and atraumatic; Negative for trauma or tenderness Tympanic Membrane ED: Yes TM's clear Eyes PERRL and EOMs intact bilaterally General Eye ED: Negative for pale conjunctiva or scleral icterus Neck no lymphadenopathy, supple and no JVD General: Negative for tenderness Chest Wall Negative for inspection of chest normal or palpation of chest normal Chest Narrative: Patient does have some mild tenderness over the right anterior chest wall just lateral from sternum that seems to reproduce her pain. Chest: tenderness Resp normal respiratory effort and clear to auscultation bilaterally Effort and Inspection: Negative for respiratory distress or pain with movement Auscultation: Negative for rhonchi, wheezes or diminished lung sounds Cardio regular rate, regular rhythm, S1 normal heart sound, S2 normal heart sound and no murmurs Peripheral Pulses: pulses 2+ throughout GI normal to inspection, nondistended, normoactive bowel sounds, soft to palpation, non-tender, non-distended and no masses Back/Spine no CVA tenderness and no thoracic nor lumbar tenderness Extremity normal to inspection General Extremety ED: Negative for edema General Extremity: Negative for edema Neuro oriented x3, CN's II-XII intact bilaterally, no sensory deficits noted and gait normal Sensorium / Orientation: awake, alert, oriented to person, oriented to place and oriented to time Motor Exam: strength 5/5 throughout and strength abnormal Psych mental status grossly normal Skin no rashes or lesions noted and no wounds Heart Score History: Slightly/Non-Suspicious ECG: Nonspecific Repolarization Age: >45 - <65 years Risk Factors: >/= 3 Risk Factors or History of CAD Troponin: </= Normal Limit Score: 4 MDM MDM MDM Narrative Medical decision making narrative: Patient's work-up in the emergency department is unremarkable. Her pain is reproducible on palpation to the right of the sternum. She believes she may have pulled a muscle in her chest when getting into the pickup truck. My suspicion for cardiac etiology is very low. Patient states that her pain is currently just minimal and improving. Lab Data Attestation: I reviewed the patient's lab results. Labs: Laboratory Results - last 24 hr 09/29/20 09/29/20 13:09 13:09 WBC 4.5 RBC 4.37 Hgb 13.4 Hct 42.6 MCV 97.5 MCH 30.7 MCHC 31.5 L RDW Std Deviation 53.0 H RDW Coeff of Laury 14.6 Plt Count 208 MPV 10.5 Immature Gran % (Auto) 0.200 Neut % (Auto) 70.0 Lymph % (Auto) 22.0 [place] % (Auto) 4.7 Eos % (Auto) 2.7 Baso % (Auto) 0.4 Absolute Neuts (auto) 3.1 Absolute Lymphs (auto) 0.99 Nucleated RBC % 0 Sodium 137 Potassium 4.7 Chloride 108 H Carbon Dioxide 23.0 Anion Gap 6 BUN 19 H Creatinine 0.82 Estim Creat Clear Calc 65.65 Est GFR (MDRD) Af Amer 92 Est GFR (MDRD) Non-Af 76 BUN/Creatinine Ratio 23.3 H Glucose 103 Calcium 9.8 Troponin I < 0.015 Radiography Chest X-Ray - ED: 1 View Diagnostic Testing: Radiology Impression Chest CTA 09/29/20 13:20 IMPRESSION: Normal CTA chest examination, without a demonstrated pulmonary embolism or arterial dissection. Electronically Signed: Sotero Hamlin MD at 14:21 EDT , Service support , Chest X-Ray 09/29/20 14:00 IMPRESSION: Normal x-ray examination of the chest. Electronically Signed: Sotero Hamlin MD at 14:21 EDT , Service support , One view chest x-ray obtained interpreted by myself as no acute disease process. EKG Initial EKG: Comments: Sinus rhythm with a ventricular rate of 83 bpm with old inferior infarct noted Discharge Plan Triage Chief Complaint: Chest Pain ED Provider: Lorene Ramirez Dx/Rx/DC Orders Clinical Impression: Acute chest wall pain Instructions: ED Chest Pain, Uncertain Cause Prescriptions: No Action metformin 1,000 mg tablet 500 mg PO BIDCM RF: 0 lisinopril 10 mg tablet 10 mg PO BID RF: 0 ascorbic acid (vitamin C) 1,000 mg tablet 1 g PO DAILY RF: 0 turmeric root extract 500 mg capsule 500 mg PO DAILY RF: 0 ramipril 2.5 MG capsule 5 mg PO DAILY RF: 0 allopurinol 300 MG tablet 300 mg PO DAILY RF: 0 glipizide 10 mg tablet 10 mg PO DAILY RF: 0 aspirin 81 MG tablet 81 mg PO DAILY@0800 Qty: 30 RF: 0 Jardiance 25 MG tablet 25 mg PO DAILY RF: 0 cholecalciferol (vitamin D3) 5,000 UNIT tablet,disintegrating 7,000 unit PO DAILY RF: 0 sertraline 50 MG tablet 50 mg PO DAILY Qty: 30 RF: 0 pioglitazone [Actos] 15 mg Tablet 15 mg PO DAILY RF: 0 Ozempic 0.25 mg or 0.5 mg(2 mg/1.5 mL) pen injector 2 mg SUBCUT QWEEK RF: 0 magnesium oxide 400 mg magnesium Tablet 400 mg PO DAILY RF: 0 Eliquis 5 mg tablet 5 mg PO BID RF: 0 Primary Care Provider: Lashay Rivers Referrals: Lashay Rivers DO [Primary Care Provider] - 3-5 Days Disposition Disposition: Home, self care
[2020-09-29 13:32] VITALS: O2SAT 96
[2020-09-29 13:49] LABS: Anion Gap 6 (5-15); BUN 19 mg/dL (7-18); BUN/Creat Ratio 23.3 RATIO (10-20); Calcium,Total 9.8 mg/dL (8.5-10.1); Chloride 108 mmol/L (98-107); Creatinine, Serum 0.82 mg/dL (0.55-1.02); EST Glomerular Filtration Rate 76 mL/min (>60); Est Glom Filt Rate - Afr Amer 92 mL/min (>60); Estimated Creatinine Clearance 65.65 ml/min; Glucose 103 mg/dL (74-106); Potassium 4.7 mmol/L (3.5-5.1); Sodium Level 137 mmol/L (136-145)
--- NOTE | 2020-09-29 14:00 | RAD_ITS ---
STUDY: X-RAY CHEST REASON FOR EXAM: Female, 59 years old. Chest pain TECHNIQUE: Single AP portable view of the chest. COMPARISON: Comparison is made with prior study 02/06/2019. FINDINGS: EKG electrodes are seen. The lungs are clear and expanded. There is no demonstrated pleural abnormality. Normal size heart. Normal mediastinum and amos. Normal visualized pulmonary arteries. Normal visualized aortic arch and descending thoracic aorta. Normal visualized thoracic spine. Normal visualized ribs, clavicles, and shoulders. There is no demonstrated abnormality of the visualized soft tissue structures of the upper abdomen. RAD/Chest 1 View (Portable) IMPRESSION: Normal x-ray examination of the chest. Electronically Signed: Sotero Hamlin MD at 14:21 EDT , Service support ,
[2020-09-29 14:46] VITALS: BP 145/84; PULSE 69; RESP 22; O2SAT 94
== END 2020-09-29 14:54 | disposition home or self-care (01) ==
PROVIDERS: Emergency Provider Emergency Medicine; PCP Internal Medicine
DX: R07.89 Other chest pain (principal); E11.9 Type 2 diabetes mellitus without complications; I10 Essential (primary) hypertension; E78.5 Hyperlipidemia, unspecified; M19.90 Unspecified osteoarthritis, unspecified site; E66.9 Obesity, unspecified; Z79.01 Long term (current) use of anticoagulants; Z79.84 Long term (current) use of oral hypoglycemic drugs; Z79.82 Long term (current) use of aspirin; Z79.899 Other long term (current) drug therapy; Z86.718 Personal history of other venous thrombosis and embolism; Z86.73 Personal history of transient ischemic attack (TIA), and cerebral infarction without residual deficits; Z96.651 Presence of right artificial knee joint
CPT/HCPCS: 71045; 71275; 80048; 84484; 85025; 93005; 99285; Q9967; A4216

== ENCOUNTER → 2020-10-12 08:43 | Outpatient (CLI) | payer OTHER, SELFPAY ==
[2020-09-29 12:52] VITALS: BMI 31.6
--- NOTE | 2020-10-12 08:47 | VDLE_ITS ---
Reason For Study: swelling, pain, hx DVT RIGHT LEFT CFV is compressible, spontaneous, phasic, CFV is compressible, spontaneous, phasic, competent and demonstrates normal competent, and demonstrates normal augmentation. augmentation. FV is compressible, spontaneous, phasic, FV is compressible, spontaneous, phasic, competent and demonstrates normal competent and demonstrates normal augmentation. augmentation. POP V is compressible, spontaneous, phasic, POP V is compressible, spontaneous, phasic, competent and demonstrates normal competent and demonstrates normal augmentation. augmentation. T/P Trunk is compressible. T/P Trunk is compressible. PTV is compressible. PTV is compressible. RT PerV is compressible. LT PerV is compressible. Gastroc V is now compressible. SFJ is INCOMPETENT and measures .73 cm. Rt GSV is partially compressible with bright GSV proximal thigh measures .34 x .4 cm. intraluminal echoes consistent with chronic GSV at knee measures .37 x .33 cm. SVT. GSV INCOMPETENT throughout for greater than Carrier Operator V 6 cm proximal to the medial 0.5 seconds. malleolus is incompetent for greater than .5 ASV proximal thigh is INCOMPETENT for greater seconds. than 0.5 seconds and measures .72 x .64 cm. SFJ is INCOMPETENT and measures .82 cm. SSV proximal calf is competent and GSV proximal thigh measures .69 x .84 cm. measures .1 x .13 cm. GSV at knee measures .54 x .54 cm. Carrier Operator V 7 cm proximal to the medial GSV INCOMPETENT throughout for greater than malleolus is incompetent for greater than .5 0.5 seconds. seconds. SSV proximal calf is INCOMPETENT for greater GSV is tortuous. than 0.5 seconds and measures .29 x .29 cm. Procedure This is a venous duplex using B-mode, color flow and spectral Doppler. Exam performed in department. The exam was diagnostic. VL/Venous Duplex US - Lauro Extrem Interpretation Summary Deep veins of the lower extremities are bilaterally patent and compressible seg mentally. There is no evidence of deep vein thrombosis on either side. Valvular competence appears in tact within the proximal deep venous systems bilaterally. Chronic venous changes are noted in t he right great saphenous vein, which is partially compressible and demonstrates bright intralu angel echogenicity. The left great saphenous vein is patent and compressible. Sapheno-femoral junct ions are bilaterally incompetent . Segmental valvular incompetence is noted within the great sapheno us veins bilaterally. The right small saphenous vein is patent and incompetent. The left small saphen ous vein is patent and competent. An incompetent director of manufacturing operations vein is noted in the right calf, locat ed 6 centimeters proximal to the right medial malleolus, The accessory sphenous vein in the left proximal thigh is incompetent. An incompetent director of manufacturing operations vein is noted in the left calf, located 7 centimeters proximal to the left medial malleolus. There appears to have been resolution of the acute deep vein thrombosis in the right gastrocnemius vein since a prior study on 08/11/2020. Ordering Physician: Compa Villagran Performed By: Ananda Garcia, RVT
== END ==
PROVIDERS: PCP Internal Medicine; Referring Provider Surgery; Visit Provider Surgery
DX: M79.89 Other specified soft tissue disorders (principal); I83.10 Varicose veins of unspecified lower extremity with inflammation; M79.606 Pain in leg, unspecified; Z86.718 Personal history of other venous thrombosis and embolism
CPT/HCPCS: 93970

== ENCOUNTER → 2020-12-06 08:00 | Outpatient (CLI) | payer OTHER, SELFPAY ==
--- NOTE | 2020-12-06 08:02 | RAD_ITS ---
STUDY: X-RAY - ESOPHAGUS (BARIUM SWALLOW) WITH FLUOROSCOPY REASON FOR EXAM: Female, 59 years old. DYSPHAGIA TECHNIQUE: 17 view(s) of the esophagus were obtained following swallowing of barium. FLUOROSCOPY TIME (if supplied): (23 seconds) minutes/seconds COMPARISON: None. FINDINGS: There is no demonstrated esophageal foreign body. There is no demonstrated stricture or mucosal abnormality. There is a small hiatal hernia of the fundus of the stomach. The patient was unable to swallow the 12 mm tablet of barium. There is atherosclerotic calcification of the aortic arch with tortuosity of the descending aorta. Normal visualized pulmonary parenchyma. Normal visualized osseous structures of the thorax. RAD/Esophagus Single Contrast IMPRESSION: Small hiatal hernia. No evidence of gastroesophageal reflux. The patient was unable to swallow the 12 mm tablet that barium. Electronically Signed: Sotero Hamlin MD at 14:42 EDT , Service support ,
== END ==
PROVIDERS: PCP Internal Medicine; Referring Provider Internal Medicine; Visit Provider Internal Medicine
DX: R13.10 Dysphagia, unspecified (principal)
CPT/HCPCS: 74220

== ENCOUNTER 2021-01-24 08:47 | Day surgery (SDC) | payer OTHER, SELFPAY ==
[2021-01-24] VITALS (7 sets, daily range): BP systolic 110–123; BP diastolic 61–75; PULSE 81–93; RESP 16–18; TEMP 36.5–36.9; O2SAT 93–100; BMI 34.0
--- NOTE | 2021-01-24 | COLBX_PTH ---
PATIENT: JAYLEN WESLEY LOC: EN U#:[id number] AGE/SX: 60/F ROOM: RE01/24/[address]: Dr. Felix Olson DO : 1960 BED: DIS: 01/24/2021 SPEC #: [id number] RECD: 01/24/21 13:43 STATUS: KARI JOHNNA #: [id number] [place]: 01/24/21 00:[address]: Felix Olson DEPT: SURGICAL PATHOLOGY RECD BY: Bacilio Brenner ENTERED: 01/24/21 13:43 SP TYPE: COLON BX OTHR DR: Dr. Lashay Rivers DO Tissues: A - Duodenum, NOS B - Esophageal mucous membrane Procedures: Special Stain Group II Surgery Specimen Level IV Alcian Blue/PAS (control) HEADER OPERATION: EGD ([facility] – [place]) with dilation PRE-OP DIAGNOSIS: Dysphagia, dysphonia, hiatal hernia TISSUE SUBMITTED: A ? Duodenum biopsy, B ? Distal esophagus biopsy MICROSCOPIC DIAGNOSIS A. Duodenum, biopsy: Minimal nonspecific chronic inflammation. B. Distal esophagus, biopsy: Gastroesophageal junctional mucosa with mild chronic inflammation. No evidence of goblet cell metaplasia. See comment. AM:miquel 01/25/2021 COMMENT B. Alcian blue/PAS stain with matched control supports the above diagnosis. MICROSCOPIC DESCRIPTION Slides are reviewed. GROSS DESCRIPTION A - Received in fixative is one container labeled with the patient's name and designated duodenum biopsy. The specimen consists of multiple irregular fragments of light hebert soft tissue that in aggregate measure 1 x 0.5 x 0.1 cm. The specimen is totally submitted in one cassette. B - Received in fixative is one container labeled with the patient's name and designated distal esophagus biopsy. The specimen consists of multiple irregular fragments of light hebert soft tissue that in aggregate measure 1 x 0.2 x 0.1 cm. The specimen is totally submitted in one cassette. / AM:miquel 01/24/21 TC:3 CPT: 88894 x2, [id number]
[2021-01-24] MEDS: Lactated Ringers 1,000 ML 100 ML IV (09:27)
[2021-01-24 09:36] LABS: Bedside Glucose 109 mg/dL (70-110)
--- NOTE | 2021-01-24 10:18 | PCM.HP.STD ---
HPI - General HPI Narrative JAYLEN WESLEY, is a 60 F who presents HPI Chief Complaint: suture removal right arm Details: JAYLEN WESLEY, is a 60 F who presents to the office today because of dysphagia and difficulty with speech. She has noticed voice that started changes started about 4 months ago and dysphagia that started 2 months ago. She gets hoarse throughout the day. She has not started any new medicines. She was having some problems with dizziness and was discovered to have low blood pressure. Also her blood sugar has been lower. She contributes both of these to weight loss. She is admitted trying to lose weight. Has been eating regular food but smaller amounts than her normal and has been increasing fluids during meals. She was told she was told a hiatal hernia - denies heartburn and indigestion. Has been trying to lose weight - has lost 30lbs in the last 4 weeks. Remove bread and rice from diet and has been walking a lot. She had a barium esophagram that did show a small hiatal hernia. She does not have a lot of heartburn. She does not have any chest pain or shortness of breath. She does have a history of DVT and is on Eliquis. ROS Const Constitutional: Positive for weight change (loss) Eyes Eyes: No change in vision ENT ENT: Positive for difficulty swallowing and hoarseness; No abnormal hearing, tongue swelling or throat swelling Resp Respiratory: No cough or shortness of breath Cardio Cardiology: No chest pain at rest, chest pain with exertion, shortness of breath or dyspnea on exertion Gastro GI: Positive for difficulty swallowing Genitourinary-Female: No difficulty urinating or burning urination Musc Musculoskeletal: No joint pain, joint swelling, muscle weakness or decreased muscle mass Skin Skin: No hair loss in leg, yellowing of the eye, itchy eyes, rash, skin ulcer or skin swelling Neuro Neurology: No abnormal hearing, abnormal movements, confusion, unsteady gait/balance or memory loss Psych Psychiatric: No anxiety, No confusion and No memory loss Endo Endocrine: Positive for cold intolerance, increased thirst/drinking and weight change (loss) Aller/Imm Allergy/Immunologic: No itchy eyes, throat swelling or tongue swelling Jelani/Lymp Hematologic/Lymphatic: Positive for easy bruising Exam Const General: cooperative and comfortable Nutritional Appearance: average body habitus and well nourished HENMT Head: normal to inspection Ears: hearing grossly normal bilaterally Nose: external nose normal Face and sinus: normal facial exam Mouth: oral mucosae normal Throat: posterior oropharynx normal Eyes General: appearance normal, both eyes and all related structures Neck Neck: normal visual inspection Chest Chest palpation & inspection: normal inspection of the chest and normal palpation of entire chest wall Resp Effort & Inspection: normal respiratory effort Auscultation: Bilateral: Clear to Auscultation Cardio Palpation: normal PMI Rate: regular rate Rhythm: regular rhythm GI Inspection: normal to inspection Auscultation: normal bowel sounds Percussion: normal to percussion Palpation: no hepatosplenomegaly Skin General: no rashes or lesions noted Neuro General: patient alert Extrem General: normal to inspection Psych Affect: normal affect Quality Reporting Tobacco Screening ([facility] 138) Smoking Status: Never smoker Assessment and Plan Assessment and Plan (1) Dysphagia: Status: Acute Plan - Dr. Felix Olson, DO: We will evaluate the upper GI tract to see if her hiatal hernia is contributing to gastroesophageal reflux disease and therefore scarring down the esophagus because of esophageal ring or esophageal stricture. Also we will screen her for Connor's esophagus. She consented to upper endoscopy with biopsy and dilation. She was explained alternatives, risk, benefits including not withstanding bleeding, infection, sepsis, perforation, need for emergent . She will have an ASA of 3. She will hold her Eliquis 2 days prior to procedure. (2) Dysphonia: Status: Acute Plan - Dr. Felix Olson, DO: Her dysphonia is possibly secondary to underlying reflux disease. We will take extensive biopsies throughout the esophagus and do a careful evaluation of the back of the throat. (3) Hiatal hernia: Status: Acute This is an updated H&P from previous consultation in the office. [facility] Medical History (Updated 01/19/21 @ 12:18 by Fiordaliza Eid) Abdominal pain Acute bilateral thoracic back pain Arthritis Back pain Bulging of intervertebral disc between L4 and L5 Dehydration Depression Diabetes Diabetes mellitus type 2 in obese Dietary restriction Difficulty with speech Diverticulosis DVT (deep venous thrombosis) Gout Headache Hiatal hernia Hiatal hernia History of echocardiogram History of edema History of ganglion cyst History of ganglion cyst History of pain when walking History of stress test Hyperlipidemia Hypertension Leukopenia Mass of right upper extremity Nephrolithiasis Non-smoker Obesity (BMI 30.0-34.9) Osteoarthritis Syncope TIA (transient ischemic attack) Wears glasses Home Medications allopurinol 300 mg PO DAILY 08/10/14 [History Last Taken 10/11/18] aspirin 81 mg PO DAILY@0800 #30 tab 09/15/15 [Rx Last Taken 10/11/18] cholecalciferol (vitamin D3) 7,000 unit PO DAILY 03/06/17 [History Last Taken 10/11/18] sertraline 50 mg PO DAILY #30 tab 10/13/18 [Rx Last Taken Unknown] ascorbic acid (vitamin C) 1,000 mg tablet 1 g PO DAILY tab 05/14/20 [History Last Taken Unknown] glipizide 10 mg tablet 10 mg PO DAILY tab 05/14/20 [History Last Taken Unknown] lisinopril 10 mg tablet 10 mg PO BID 05/14/20 [History Last Taken 01/24/21 08:00] metformin 1,000 mg tablet 500 mg PO BIDCM tab 05/14/20 [History Last Taken Unknown] turmeric root extract 500 mg capsule 500 mg PO DAILY 05/21/20 [History Last Taken Unknown] apixaban [Eliquis] 5 mg PO BID 09/29/20 [History Last Taken Unknown] magnesium oxide 400 mg PO DAILY 09/29/20 [History Last Taken Unknown] semaglutide [Ozempic] 2 mg SUBCUT ROSE 09/29/20 [History Last Taken Unknown] Allergy/AdvReac Type Severity Reaction Status Date / Time Quinolones Allergy Swelling Verified 01/24/21 09:07 codeine AdvReac Nausea Verified 01/24/21 09:07 Family History Brother Colon cancer Diabetes Father Diabetes Hypertension High cholesterol Mother Heart disease High cholesterol Hypertension Surgical History (Updated 01/19/21 @ 12:18 by Fiordaliza Eid) History of carpal tunnel surgery of right wrist History of total right knee replacement History of tubal ligation Hx laparoscopic cholecystectomy Hx of appendectomy Hx of lithotripsy Social History Smoking Status: Never smoker alcohol intake: never substance use type: does not use Vital Signs Vital Signs Vital Signs: 01/24/21 09:10 01/24/21 09:14 Temperature 97.7 F L Temperature Source Temporal Pulse Rate 86 Respiratory Rate 18 Respiratory Pattern Normal Blood Pressure 123/67 H Blood Pressure Mean 85 Blood Pressure Source Monitor Blood Pressure Position Semi-Fowlers Blood Pressure Location Right Arm Pulse Ox 100 Oxygen Delivery Method Room Air Weight Weight: 173 lb 15.115 oz Body Mass Index (BMI) 34.0 Results Lab / Micro Data Labs: Laboratory Results - last 24 hr 01/24/21 09:05: POC Glucose 109
--- NOTE | 2021-01-24 10:49 | OP.EGD_ITS ---
Patient Name: Dina Tinoco Procedure Date: 01/24/2021 10:18 AM Date of : 1960 Age: 60 Procedure: Upper GI endoscopy Indications: Dysphagia Providers: Felix Olson DO Medicines: Monitored Anesthesia Care Patient Profile: This is a 60 year old female. Refer to note in patient chart for documentation of history and physical. Patient has symptoms. She is status post EGD for dilation within the past five years. Complications: No immediate complications. Procedure: Pre-Anesthesia Assessment: - Prior to the procedure, a History and Physical was performed, and patient medications and allergies were reviewed. The patient is competent. The risks and benefits of the procedure and the sedation options and risks were discussed with the patient. All questions were answered and informed consent was obtained. Patient identification and proposed procedure were verified by the physician in the pre-procedure area. Mental Status Examination: alert and oriented. Airway Examination: normal oropharyngeal airway and neck mobility. Respiratory Examination: clear to auscultation. CV Examination: normal. Prophylactic Antibiotics: The patient does not require prophylactic antibiotics. Prior Anticoagulants: The patient has taken no previous anticoagulant or antiplatelet agents. ASA Grade Assessment: II - A patient with mild systemic disease. After reviewing the risks and benefits, the patient was deemed in satisfactory condition to undergo the procedure. The anesthesia plan was to use moderate sedation / analgesia (conscious sedation). Immediately prior to administration of medications, the patient was re-assessed for adequacy to receive sedatives. The heart rate, respiratory rate, oxygen saturations, blood pressure, adequacy of pulmonary ventilation, and response to care were monitored throughout the procedure. The physical status of the patient was re-assessed after the procedure. After obtaining informed consent, the endoscope was passed under direct vision. Throughout the procedure, the patient's blood pressure, pulse, and oxygen saturations were monitored continuously. The Endoscope was introduced through the mouth, and advanced to the second part of duodenum. The upper GI endoscopy was accomplished without difficulty. The patient tolerated the procedure well. Moderate Sedation: Moderate (conscious) sedation was administered by the endoscopy nurse and supervised by the endoscopist. The patient's oxygen saturation, heart rate, blood pressure and response to care were monitored. Scope In: 10:33:14 AM Scope Out: 10:40:46 AM Total Procedure Duration Time 0 hours 7 minutes 32 seconds Findings: The middle third of the esophagus was moderately tortuous. LA Grade A (one or more mucosal breaks less than 5 mm, not extending between tops of 2 mucosal folds) esophagitis with no bleeding was found. Biopsies were taken with a cold forceps for histology. Verification of patient identification for the specimen was done. Estimated blood loss was minimal. One benign-appearing, intrinsic stenosis was found. This stenosis was moderately severe and. The stenosis was traversed. The scope was withdrawn. Dilation was performed with a Yovanny dilator with mild resistance at 60 Fr. The entire examined stomach was normal. Scattered moderate inflammation characterized by congestion (edema), erosions and erythema was found in the first portion of the duodenum. Biopsies were taken with a cold forceps for histology. Verification of patient identification for the specimen was done by the physician. Estimated blood loss: none. Impression: - Tortuous esophagus. - LA Grade A reflux esophagitis. Biopsied. - Benign-appearing esophageal stenosis. Dilated. - Normal stomach. - Duodenitis. Biopsied. - LA Grade A reflux esophagitis. Biopsied. - Medium-sized hiatal hernia. - Moderate Schatzki ring. Dilated. - Normal stomach. - Duodenitis. Biopsied. Recommendation: - Discharge patient to home. - Resume previous diet. - Continue present medications. - Await pathology results. - Repeat upper endoscopy in 1 year for surveillance. - Return to GI office in 2 weeks. Procedure Code(s): --- Professional --- 88268, Esophagogastroduodenoscopy, flexible, transoral; with biopsy, single or multiple 06169, Dilation of esophagus, by unguided sound or bougie, single or multiple passes CPT copyright 2017 [employer]. All rights reserved. The codes documented in this report are preliminary and upon parts cleaner review may be revised to meet current compliance requirements. Felix Olson DO 01/24/2021 10:49:00 AM This report has been signed electronically. Number of Addenda: 1 Note Initiated On: 01/24/2021 10:18 AM Addendum Number: 1 Addendum Date: 12/29/2021 4:06:01 PM MAC was used instead of moderate sedation for this patient. Felix Olson DO 12/29/2021 4:06:08 PM This report has been signed electronically.
--- NOTE | 2021-01-24 10:50 | OP.CCLET_ITS ---
12/29/2021 Lashay Rivers [address] [place] [address] Re : Upper GI endoscopy procedure for Dina Tinoco Dear Dr. Rivers This procedure was performed on Sunday, January 24, 2021. My impressions and recommendations are as follows: Impressions : - Tortuous esophagus. - LA Grade A reflux esophagitis. Biopsied. - Benign-appearing esophageal stenosis. Dilated. - Normal stomach. - Duodenitis. Biopsied. - LA Grade A reflux esophagitis. Biopsied. - Medium-sized hiatal hernia. - Moderate Schatzki ring. Dilated. - Normal stomach. - Duodenitis. Biopsied. Recommendations : - Discharge patient to home. - Resume previous diet. - Continue present medications. - Await pathology results. - Repeat upper endoscopy in 1 year for surveillance. - Return to GI office in 2 weeks. My findings are described in the full procedure note, which is enclosed. If I can be of further assistance, please feel free to contact me at . Sincerely, Felix Olson DO 01/24/2021 10:49:00 AM This report has been signed electronically.
== END 2021-01-24 11:46 ==
LOC: EN 08:48 → AC 08:48
PROVIDERS: PCP Internal Medicine; Referring Provider Internal Medicine; Visit Provider Internal Medicine Gastroenterology
PROC: 0DJ08ZZ Inspection of Upper Intestinal Tract, Via Natural or Artificial Opening Endoscopic (ICD-10-PCS; CPT 43235; principal; 2021-01-24 10:10)
DX: K22.2 Esophageal obstruction (principal); K21.00 Gastro-esophageal reflux disease with esophagitis, without bleeding; K29.80 Duodenitis without bleeding; K44.9 Diaphragmatic hernia without obstruction or gangrene; R13.10 Dysphagia, unspecified; E11.9 Type 2 diabetes mellitus without complications; I10 Essential (primary) hypertension; E78.5 Hyperlipidemia, unspecified; M19.90 Unspecified osteoarthritis, unspecified site; M10.9 Gout, unspecified; F32.9 Major depressive disorder, single episode, unspecified; E66.9 Obesity, unspecified; Z68.33 Body mass index [BMI] 33.0-33.9, adult; Z79.01 Long term (current) use of anticoagulants; Z79.84 Long term (current) use of oral hypoglycemic drugs; Z79.82 Long term (current) use of aspirin; Z86.718 Personal history of other venous thrombosis and embolism; Z86.73 Personal history of transient ischemic attack (TIA), and cerebral infarction without residual deficits; Z96.651 Presence of right artificial knee joint
CPT/HCPCS: 43239; 43450; 82962; 88305; 88313; J7120; C1769; J2405

== ENCOUNTER → 2021-02-19 08:48 | Outpatient (CLI) | payer OTHER, SELFPAY ==
[2021-02-19 08:54] LABS: Bacteria 0 SEEN /hpf (None Seen); Mucous, Urine 0 SEEN /hpf (<or=2+); Red Blood Cells-Urine 0 SEEN /hpf (0-5); Squamous Epithelial Cells - UA 0 SEEN /hpf (5-10); White Blood Cells 0 SEEN /hpf (0-5)
[2021-02-19 09:56] LABS: Absolute Lymphocyte Count 0.81 X10^3/uL (0.83-4.51); Absolute Neutrophil Count 1.8 X10^3/uL (2.0-7.7); Basophil# 0.02 X10^3/uL; Basophil% 0.7 % (0-1); Eosinophil# 0.15 X10^3/uL; Hemoglobin 11.1 g/dL (12.0-15.0); Lymphocyte # 0.81 X10^3/ul (0.83-4.51); Lymphocyte % 26.9 % (19-41); Mean Corp Hgb Conc 31.7 g/dL (32-36); Mean Corpuscular Volume 97.8 fL (81-99); Mean Platelet Vol. 11.4 fl (6.2-12.0); Monocyte% 6.6 % (0-10); NRBC Flagged by Analyzer 0 % (0-5); Neutrophil # 1.82 X10^3/uL (2.7-7.7); Neutrophil % 60.5 % (47-70); Platelet Count 164 K/mm3 (150-450); RBC Distribution Width CV 14.4 % (11.6-14.6); RBC Distribution Width SD 51.7 fl (35.1-43.9); Red Blood Count 3.58 M/mm3 (4.2-5.4)
[2021-02-19 10:15] LABS: Color, Urine Yellow (Yellow); Glucose, Dipstick Normal (Normal); Ketone-Dipstick Negative (Negative); Leukocyte Esterase-Dipstick 25 /ul (Negative); Nitrite-Dipstick Negative (Negative); Occult Blood-Urine Negative /ul (Negative); Protein-Dipstick Negative (Negative); Specific Gravity, Urine 1.015 (1.002-1.030); Urine Bilirubin Dipstick Negative (Negative); Urine Clarity Clear (Clear); Urine Urobilinogen Normal (Normal)
[2021-02-19 10:29] LABS: ALB/GLOB Ratio 1.1 RATIO (0.9-2.4); AST(SGOT) 20 U/L (15-37); Alanine Aminotransfer ALT/SGPT 32 U/L (13-56); Albumin, Serum 3.4 g/dL (3.2-5.0); Alkaline Phosphatase 39 U/L (45-117); Anion Gap 5 (5-15); BUN 19 mg/dL (7-18); BUN/Creat Ratio 26.1 RATIO (10-20); Chloride 105 mmol/L (98-107); Cholesterol 160 mg/dL (200); Creatinine, Serum 0.73 mg/dL (0.55-1.02); EST Glomerular Filtration Rate 86 mL/min (>60); Est Glom Filt Rate - Afr Amer 105 mL/min (>60); Globulin 3.1 g/dL (2.2-4.2); Glucose 103 mg/dL (74-106); High Density Lipoprotein 74 mg/dL; Potassium 4.5 mmol/L (3.5-5.1); Protein, Total 6.5 g/dL (6.4-8.2); Sodium Level 141 mmol/L (136-145); Thyroid Stim Hormone (TSH) 1.42 uIU/mL (0.358-3.74); Triglycerides 139 mg/dL; Very Low Density Lipoprotein 28 mg/dL (5-40)
[2021-02-19 10:36] LABS: Microalbumin,Random Urine 7.3 mg/L (NO RANGE EST.)
== END ==
PROVIDERS: PCP Internal Medicine; Referring Provider Internal Medicine; Visit Provider Internal Medicine
DX: I11.9 Hypertensive heart disease without heart failure (principal); E11.9 Type 2 diabetes mellitus without complications; E55.9 Vitamin D deficiency, unspecified
CPT/HCPCS: 36415; 80053; 80061; 81001; 82043; 82306; 82570; 84443; 85025

== ENCOUNTER → 2021-03-09 08:32 | Outpatient (CLI) | payer OTHER, SELFPAY ==
--- NOTE | 2021-03-09 08:42 | ECHOD_ITS ---
Reason For Study: Speech Disturbance Procedure This was a 2D Doppler, Color Flow transthoracic echocardiogram. Bubble study performed. Exam performed in department. Left Ventricle Normal LV size. Sigmoid septum. Left ventricular systolic function is normal. The estimated ejection fraction is 65 %. Diastolic function is indeterminate. No regional wall motion abnormalities noted. Right Ventricle Normal RV size. Normal systolic function. Atria Normal left atrium. Normal right atrium. No doppler evidence for ASD. Bubble contrast study negative for right to left interatrial shunt. Mitral Valve There is no mitral annular calcification. Normal mitral valve. Trivial mitral valve insufficiency. Tricuspid Valve Normal tricuspid valve. Trivial tricuspid valve insufficiency. Unable to estimate RV systolic pressure due to insufficient tricuspid regurgitant envelope. Aortic Valve Trisinus/trileaflet aortic valve. Normal aortic valve. Pulmonic Valve The pulmonic valve is not well visualized. Trivial pulmonic valve insufficiency. Great Vessels The aortic root is not well visualized. Pericardium/Pleural No pericardial effusion. Medication 22 gauge I.V. with prn adaptor inserted into left arm. Performed a rapid injection of agitated mix of 9 cc saline and 1cc air to assess for atrial septal defect. MMode/2D Measurements & Calculations LVIDd: 4.4 cm IVSd: 1.1 cm LA dimension: 3.8 cm LVIDs: 2.6 cm LVPWd: 0.63 cm RVDd: 3.6 cm FS: 41.0 % LAV(MOD-bp): 54.3 ml LA A4 area: 17.6 cm2 RA A4 area: 13.4 cm2 LAV(MOD-bp) Indexed: 30.2 ml/m2 LAV(MOD-sp2): 53.8 ml LAV(MOD-sp4): 50.7 ml Time Measurements MV dec time: 0.26 sec Doppler Measurements & Calculations MV E max lavelle: 89.5 cm/sec Lat Peak E' Lavelle: 6.6 cm/sec Med Peak E' Lavelle: 6.9 cm/sec MV A max lavelle: 95.4 cm/sec E/E' lat: 13.5 E/E' med: 13.0 MV E/A: 0.94 MV V2 max: 98.7 cm/sec MV P1/2t max lavelle: 88.4 cm/sec Ao V2 max: 132.9 cm/sec MV max P.9 mmHg MV P1/2t: 114.3 msec Ao max P.1 mmHg MV V2 mean: 59.3 cm/sec MV dec slope: 226.7 cm/sec2 MV mean P.6 mmHg MV V2 VTI: 29.9 cm MVA(P1/2t): 1.9 cm2 LV V1 max: 112.9 cm/sec PA V2 max: 114.6 cm/sec LV V1 max P.1 mmHg ECHO/Echo Complete Interpretation Summary Left ventricular systolic function is normal. The estimated ejection fraction is 65 %. Sigmoid septum. Trivial mitral valve insufficiency. Trivial tricuspid valve insufficiency. Trivial pulmonic valve insufficiency. Diastolic function is indeterminate. Bubble contrast study negative for right to left interatrial shunt. Ordering Physician: Lashay Rivers Referring Physician: Lashay Rivers Performed By: Leo Jacob RCS
--- NOTE | 2021-03-09 08:43 | CDU_ITS ---
Reason For Study: speech disturbance Rt. Velocities/BP Lt. Velocities/BP Prox CCA 111.6/11.2 cm/sec. Prox CCA 100.2/22.8 cm/sec. Mid CCA 102.5/17.7 cm/sec. Mid CCA 99.0/25.3 cm/sec. Dist CCA 66.0/13.8 cm/sec. Dist CCA 74.4/21.6 cm/sec. Prox ICA 106.4/20.3 cm/sec. Prox ICA 97.8/13.0 cm/sec. Mid ICA 66.0/19.0 cm/sec. Mid ICA 83.4/30.7 cm/sec. Dist ICA 72.5/20.3 cm/sec. Dist ICA 80.9/25.7 cm/sec. Rt. ICA/CCA = 106.4/102.5=1.0. Lt. ICA/CCA = 97.8/99.0=0.98. Prox ECA 119.5/12.5 cm/sec. Prox ECA 97.8/13.0 cm/sec. Rt. Vert. 41.2/11.0 cm/sec. Lt. Vert. 56.4/20.8 cm/sec. Right Extracranial There is intimal thickening but no significant atherosclerotic plaque noted in the right common carotid artery. There is heterogeneous, irregular atherosclerotic plaque noted in the right internal carotid artery. There is no significant atherosclerotic plaque noted in the right external carotid artery. Antegrade flow is noted in the right vertebral artery. There is heterogeneous, irregular atherosclerotic plaque noted in the left bulb. Left Extracranial There is intimal thickening but no significant atherosclerotic plaque noted in the left common carotid artery. There is no significant atherosclerotic plaque noted in the left internal carotid artery. There is no significant atherosclerotic plaque noted in the left external carotid artery. Antegrade flow is noted in the left vertebral artery. There is heterogeneous, irregular atherosclerotic plaque noted in the left bulb. Procedure Carotid Duplex 98210. This is a Carotid Duplex examination using B-mode, color flow and specral Doppler. Exam performed in department. VL/Carotid Duplex Ultrasound Interpretation Summary Irregular calcific plaque of the proximal right internal carotid artery with le ss than 50% stenosis Less than 50% stenosis right external carotid artery Calcific plaque with shadowing at the proximal left internal carotid artery wit h less than 50% stenosis. Less than 50% stenosis left external carotid artery Patent and antegrade vertebral arteries bilaterally Ordering Physician: Lashay Rivers Referring Physician: Lashay Rivers Performed By: Vy Nieves, RDCS, RVT
== END ==
PROVIDERS: PCP Internal Medicine; Referring Provider Internal Medicine; Visit Provider Internal Medicine
DX: R47.9 Unspecified speech disturbances (principal); I65.23 Occlusion and stenosis of bilateral carotid arteries; R55 Syncope and collapse
CPT/HCPCS: 93306; 93880; A4216

== ENCOUNTER → 2021-04-26 09:17 | Outpatient (CLI) | payer OTHER, SELFPAY ==
--- NOTE | 2021-04-26 15:41 | SP.MBSS_ITS ---
Modified Barium Swallow - Patient Information Study Date: 04/26/21 Study Time: 13:00 Direct Billable Minutes: 120 Total Minutes procedure & reportin Diagnosis: Dysphagia, unspecified (R13.10) Referring Physician: Felix Olson Reason for Referral: Objectively assess swallow function and aspiration risk. Medical History: Patient is a 60 year old female who was referred for assessment of Dysphagia, thought to be multifactorial by pt's records clerk, Dr. Olson. Pt has history of tortuous esophagus, esophageal ring, silent GERD, TIA. The patient's GERD is managed by medication. PMH also includes DM type 2, HTN, CVA (7 years ago), TIA. SEE H&P from gastroenterology reports for full PMH. The patient reports coughing up food/drink intermittently. She denies history of head/neck surgery or recent pneumonia. The patient presented with dysarthria characterized by slowed speech, low vocal intensity, and imprecise articulation. She reported that these symptoms onset in September 2020. 12/06/2020 Barium esophagram IMPRESSION: Small hiatal hernia. No evidence of gastroesophageal reflux. The patient was unable to swallow the 12 mm tablet that barium. Current Diet Ordered: Regular Textures / Thin Liquids Dentition: WNL Mental Status: WNL - Patient able to follow commands for evaluation and respond appropriately in conversation. Respiratory Status: Oxygenating on Room Air - Penetration-Aspiration Scale Penetration-Aspiration Scale: OBJECTIVE ASSESSMENT OF SWALLOW FUNCTION (QUANTITATIVE ? PER TRIAL): PENETRATION / ASPIRATION SCALE (DEXTER): 1 = does not enter airway 2 = enters airway/above vocal folds/ejected 3 = enters airway/above vocal folds/not ejected 4 = enters airway/contacts vocal folds/ejected 5 = enters airway/contacts vocal folds/not ejected 6 = enters airway/below vocal folds/ejected 7 = enters airway/below vocal folds/not ejected despite effort 8 = enters airway/below vocal folds/no effort VIDEOFLOROSCOPIC SCALE SCORE (DEXTER): Grade I = aspiration of material that has penetrated into the laryngeal vestibule, intact cough reflex Grade II = aspiration < 10 % of the bolus, intact cough reflex Grade III = aspiration of < 10 % of the bolus, reduced cough reflex or aspiration of > 10 % of the bolus, intact cough reflex Grade IV = aspiration of > 10 % of the bolus, reduced cough reflex - Penetration-Aspiration Scale Score Thin Liquid via teaspoon Result: 1= does not enter airway Thin Liquid via teaspoon Trial 2 Result: 3= enters airways/above vocal folds/not ejected Thin Liquid via small single sip from cup Result: 8= enters airway/below vocal folds/no effort - Cued cough and reswallow - pt effectively cleared the laryngeal vestibule of contrast. Thin Liquid via small single sip from cup Trial 2 Result: 1= does not enter airway Thin Liquid via small single sip from cup Effortful swallow Result: 1= does not enter airway [place] Thick Liquid via small single sip from cup Result: 1= does not enter airway [place] Thick Liquid via small single sip from cup Double swallow Result: 1= does not enter airway Honey Thick Liquid via small single sip from cup Double swallow Result: 1= does not enter airway Pudding via teaspoon Result: 1= does not enter airway Cookie Result: 1= does not enter airway Thin Liquid via single sip from straw Result: 8= enters airway/below vocal folds/no effort Thin Liquid via small single sip from cup Effortful Double swallow Result: 2= enter airway/above vocal folds/ejected Thin Liquid via small single sip from cup Chin t[place] Result: 2= enter airway/above vocal folds/ejected Thin Liquid via small single sip from cup Chin tuck Trial 2 Result: 2= enter airway/above vocal folds/ejected Thin Liquid via teaspoon Trial 3 Result: 2= enter airway/above vocal folds/ejected Thin Liquid via teaspoon Effortful swallow Result: 1= does not enter airway Thin Liquid via teaspoon Effortful swallow Trial 2 Result: 1= does not enter airway Barium Tablet via small single sip from cup Result: 5= enters airways/contacts vocal folds/not ejected - No oral clearance. Pt had to expectorate tablet. Barium Tablet via tsp of pudding Result: 3= enters airways/above vocal folds/not ejected - Pudding contrast penetrated airway without full ejection. Pt required 4 swallows and digital manipulation to clear pill from oral cavity. - Oral Phase Labial Seal: Escape progressing to mid-chin Tongue Control During Bolus Hold: Posterior escape of less than half of bolus Bolus Preparation/Mastication: Slow prolonged chewing/mashing with complete recollection Bolus Transport/Lingual Motion: Slowed tongue motion Oral Residue: Majority of bolus remaining - Piecemeal deglutition of pudding and cookie trial. - Pharyngeal Phase Initiation of Pharyngeal Swallow: Bolus head in pyriforms Soft Palate Elevation: No bolus between soft palate and pharyngeal wall Laryngeal Elevation: Partial superior movement thyroid cart/partial apprx aryt-epig petiole Anterior Hyoid Excursion: No anterior movement Epiglottic Movement: Partial inversion Laryngeal Vestibule Closure at Height of Swallow: Incomplete; narrow column of air/contrast in laryngeal vestibule Pharyngeal Stripping Wave: Present - complete Pharyngoesophageal Segment Opening: Parital distension and partial duration; parital obstruction of flow Tongue Base Retraction: Wide column of contrast between tongue base & post. pharyngeal wall Pharyngeal Residue: Collection of residue within or on pharyngeal structures - Esophageal Phase Esophageal Clearance: Esophageal retention - Treatment Strategies Effects of treatment strategies attemped:: Double swallow = somewhat effective. Effortful swallow = effective. Cough and reswallow = somewhat effective. Decreased bolus size = effective. - Diagnosis/Impression Diagnosis: oropharyngeal dysphagia (R13.12), pharyngoesophageal dysphagia (R13.14) Impression: The oral phase is primarily marked by impaired A-P bolus transport resulting in piecemeal deglutition with pudding and cookie textures, as well as poor oral porsha arance of barium tablet. The patient required digital manipulation and 4 swallows of pudding to clear barium tablet from the oral cavity. She requires medications crushed in puree texture. She also presents with prolonged mastication, moderate oral residue. She had premature loss of liquid bolus resulting in suboptimal bolus placement upon swallow onset. The pharyngeal phase is primarily marked by decreased airway protection, likely due to absent anterior hyoid excursion, decreased laryngeal elevation, and decreased epiglottic inversion. The patient demonstrated penetration of thin liquid trials by tsp without full ejection in 1/5 trials. With use of effortful swallows with thin liquid by tsp, the patient had improved airway protection and no laryngeal penetration. She had SILENT aspiration of thin liquids via cup and tsp. The patient presented with moderate pharyngeal residues across all consistencies, which improved with use of double swallows. Due to decreased TB retraction and epiglottic inversion, she had significant residue in the vallecula which was observed to spill into the pyriforms after the swallow. She is at increased risk for aspiration after the swallow with moderate pharyngeal residues present. The esophageal phase is marked by decreased UES opening/duration, resulting in increased pharyngeal residues in the pyriforms, which decreased with use of double swallow. She appears to have a narrowing of her upper esophagus. - Recommendations Diet: Thin Liquids Comment: Soft and bite sized textures. Double, effortful swallows on each bite and sip. Pills crushed in applesauce/puree. If unable to crush medication, take one at a time in applesauce/puree. Cough and reswallow during meals at reasonable intervals. Compensatory Strategies: Small Bites, Small Sips, Liquid by Teaspoon Only, Slow Rate, Multiple Swallows - At least 2-3 swallows per each bite/sip., Sitting upright, Remain sitting upright for 30 minutes after PO intake, Assist with verbal cues to use recommended strategies Supervision: Assist as needed Recommend Repeat Modified Barium Swallow: Yes Comment: Would recommend repeat MBS study in 8-10 weeks after implementation of oropharyngeal exercise program. Need for Skilled Speech Therapy Services: Yes Comment: Will recommend the patient for outpatient dysphagia therapy to address deficits in oropharyngeal swallow function. Would consider the patient for oropharyngeal strengthening to improve lingual coordination, laryngeal elevation, hyoid excursion, and duration of UES opening. The patient would benefit from thorough education regarding diet recommendations and recommended compensatory strategies. Would also consider patient for outpatient speech therapy evaluation of speech production, as pt appears to have mild-moderate dysarthria. Recommended Referrals: GI Consult - Pt appears to have a narrowing of upper esophagus. She has decreased duration/opening of UES. Education Completed: 1. Described result of evaluation., 7. Pt requires further education on strategies & risks. Comment: Provided education verbally and via handout for recommended diet and aspiration precautions. - Status Active ST Patient: Active - Contact Information [facility] Speech Therapy:: Qian Tineo M.A. [facility] Speech-Language Pathologist [facility] [address] [place] [address] [email or web address] [phone] 04/26/21 15:47
== END ==
PROVIDERS: PCP Internal Medicine; Referring Provider Internal Medicine Gastroenterology; Visit Provider Internal Medicine Gastroenterology
DX: R13.10 Dysphagia, unspecified (principal)
CPT/HCPCS: 74230; 92611

== ENCOUNTER 2021-05-15 13:32 | Emergency (ER) | payer OTHER, SELFPAY ==
[2021-05-15 13:32] VITALS: BP 129/83; PULSE 78; RESP 14; TEMP 36.4; O2SAT 98; BMI 27.1
--- NOTE | 2021-05-15 16:05 | EDS_ITS ---
HPI History of Present Illness Chief Complaint: Sore Throat Narrative Narrative: 60-year-old female presenting with sore throat. She states he sees Dr. Olson for achalasia. Currently she states she is waiting for insurance approval of a esophageal dilation. Patient has viscous lidocaine, Carafate, and is on calcium channel blockers for her sore throat. She states that over the last evening it has not been helping. Patient presents to the ER because of increased pain. She does states she switched with mouthwash and this did make it burn worse. She is able to swallow but states it hurts to swallow. She has not had any fever, chills. Denies any nausea or vomiting. [facility] Medical History Abdominal pain Acute bilateral thoracic back pain Arthritis Back pain Bulging of intervertebral disc between L4 and L5 Dehydration Depression Diabetes Diabetes mellitus type 2 in obese Dietary restriction Difficulty with speech Diverticulosis DVT (deep venous thrombosis) Gout Headache Hiatal hernia Hiatal hernia History of echocardiogram History of edema History of ganglion cyst History of ganglion cyst History of pain when walking History of stress test Hyperlipidemia Hypertension Leukopenia Mass of right upper extremity Nephrolithiasis Non-smoker Obesity (BMI 30.0-34.9) Osteoarthritis Syncope TIA (transient ischemic attack) Wears glasses Home Medications allopurinol 300 mg PO DAILY 08/10/14 [History Last Taken 10/11/18] aspirin 81 mg PO DAILY@0800 #30 tab 09/15/15 [Rx Last Taken 10/11/18] cholecalciferol (vitamin D3) 7,000 unit PO DAILY 03/06/17 [History Last Taken 10/11/18] sertraline 50 mg PO DAILY #30 tab 10/13/18 [Rx Last Taken Unknown] ascorbic acid (vitamin C) 1,000 mg tablet 1 g PO DAILY tab 05/14/20 [History Last Taken Unknown] glipizide 10 mg tablet 10 mg PO DAILY tab 05/14/20 [History Last Taken Unknown] lisinopril 10 mg tablet 10 mg PO BID 05/14/20 [History Last Taken 01/24/21 08:00] metformin 1,000 mg tablet 500 mg PO BIDCM tab 05/14/20 [History Last Taken Unknown] turmeric root extract 500 mg capsule 500 mg PO DAILY 05/21/20 [History Last Taken Unknown] apixaban [Eliquis] 5 mg PO BID 09/29/20 [History Last Taken Unknown] magnesium oxide 400 mg PO DAILY 09/29/20 [History Last Taken Unknown] amitriptyline 10 mg tablet See Rx Instructions .ROUTE .COMPLEX #30 tab 03/14/21 [Rx Last Taken Unknown] omeprazole 40 mg capsule,delayed release See Rx Instructions .ROUTE .COMPLEX #120 cap 04/04/21 [Rx Last Taken Unknown] diltiazem HCl 30 mg tablet 30 mg PO ONCE #30 tab 05/04/21 [Rx Last Taken Unknown] lidocaine HCl 2 % mucosal solution 10 ml PO Q8H #200 ml 05/04/21 [Rx Last Taken Unknown] sucralfate 100 mg/mL oral suspension 10 ml PO QACHS #1000 ml 05/04/21 [Rx Last Taken Unknown] albuterol sulfate [Ventolin HFA] 1 - 2 puff INHALATION Q4H PRN PRN #6.7 g 05/15/21 [Rx Last Taken Unknown] nystatin 2 ml PO 4X/DAY #100 ml 05/15/21 [Rx Last Taken Unknown] Allergy/AdvReac Type Severity Reaction Status Date / Time Quinolones Allergy Swelling Verified 05/15/21 13:35 codeine AdvReac Nausea Verified 05/15/21 13:35 Family History Brother Colon cancer Diabetes Father Diabetes Hypertension High cholesterol Mother Heart disease High cholesterol Hypertension Surgical History History of carpal tunnel surgery of right wrist History of total right knee replacement History of tubal ligation Hx laparoscopic cholecystectomy Hx of appendectomy Hx of lithotripsy Social History Smoking Status: Never smoker alcohol intake: never substance use type: does not use ROS ROS ED Constitutional Constitutional ED: Denies chills, fever(s) or weight loss ENT ENT ED: Reports sore throat Cardiovascular Cardiovascular: Denies chest pain Respiratory/Chest Respiratory/Chest: Denies cough or dyspnea Gastrointestinal Gastrointestinal: Denies abdominal pain, nausea or vomiting Genitourinary Genitourinary ED: Denies dysuria or hematuria Musculoskeletal Musculoskeletal: Denies arthralgias or myalgias Integumentary Denies Abrasions or rash Neurologic Neurologic: Denies headache(s), paresthesias or weakness Psychiatric Psychiatric: Denies anxiety or depression EXAM Physical Exam Const Vital Signs: 05/15/21 13:32 Temperature 97.5 F L Temperature Source Temporal Pulse Rate 78 Respiratory Rate 14 Blood Pressure 129/83 H Blood Pressure Mean 98 Pulse Ox 98 Oxygen Delivery Method Room Air Positive well nourished General Appearance ED: NAD; Negative for pallor HEENT Reports moist mucous membranes Negative for trauma Mouth ED: Yes oral and palatal mucosa normal, Yes lips normal, Yes tongue normal and Yes salivary gland normal Mouth: oral and palatal mucosa normal, lips normal, tongue normal and salivary gland normal Throat: posterior oropharynx normal and uvula midline Eyes PERRL and EOMs intact bilaterally Neck no lymphadenopathy and supple Resp normal respiratory effort and clear to auscultation bilaterally Cardio regular rate and regular rhythm Neuro oriented x3 and CN's II-XII intact bilaterally Sensorium / Orientation: alert Psych mental status grossly normal Skin no rashes or lesions noted and no wounds General Skin Exam: Negative for jaundice or pallor MDM MDM MDM Narrative Medical decision making narrative: 60-year-old female presenting with sore throat. She has viscous lidocaine, calcium channel blockers, Carafate at home and she states this is not helping. I gave her a GI cocktail and then spoke with Dr. Olson about how I can help her with her sore throat. He recommended that she discontinue aspirin use currently. He recommended that I do nystatin swish and swallow in the ER, Solu-Medrol 125 IV, DuoNeb treatment and see if this helps her. If it does he recommended that I put her on the nystatin swish and swallow 4 times a day and give her an albuterol inhaler for home. He stated that if this did not proved her symptoms she would recommend putting her on prednisone as well. Patient was initially given a GI cocktail but when I went in to reevaluate the patient she had eloped. She did not get her treatments. I did not give her any follow-up plan because I did not speak to her. I attempted to call her phone but she did not answer. I did contact Dr. Olson and let him know of the situation. Impression: 1. Sore throat 2. History of achalasia Discharge Plan Triage Chief Complaint: Sore Throat ED Provider: Greg Mathur Dx/Rx/DC Orders Prescriptions: New nystatin 100,000 unit/mL suspension 2 ml PO 4X/DAY Qty: 100 RF: 0 albuterol sulfate [Ventolin HFA] 90 mcg/actuation HFA aerosol inhaler 1 - 2 puff inhalation Q4H PRN PRN (Reason: Wheezing) Qty: 6.7 RF: 0 No Action metformin 1,000 mg tablet 500 mg PO BIDCM RF: 0 lisinopril 10 mg tablet 10 mg PO BID RF: 0 ascorbic acid (vitamin C) 1,000 mg tablet 1 g PO DAILY RF: 0 turmeric root extract 500 mg capsule 500 mg PO DAILY RF: 0 diltiazem HCl [Cardizem] 30 mg tablet 30 mg PO ONCE Qty: 30 RF: 1 lidocaine HCl [Lidocaine Viscous] 2 % solution 10 ml PO Q8H Qty: 200 RF: 2 sucralfate [Carafate] 100 mg/mL suspension 10 ml PO QACHS Qty: 1000 RF: 2 allopurinol 300 MG tablet 300 mg PO DAILY RF: 0 glipizide 10 mg tablet 10 mg PO DAILY RF: 0 aspirin 81 MG tablet 81 mg PO DAILY@0800 Qty: 30 RF: 0 cholecalciferol (vitamin D3) 5,000 UNIT tablet,disintegrating 7,000 unit PO DAILY RF: 0 sertraline 50 MG tablet 50 mg PO DAILY Qty: 30 RF: 0 magnesium oxide 400 mg magnesium Tablet 400 mg PO DAILY RF: 0 Eliquis 5 mg tablet 5 mg PO BID RF: 0 amitriptyline 10 mg tablet See Rx Instructions .ROUTE .COMPLEX Qty: 30 RF: 3 omeprazole 40 mg capsule,delayed release(DR/EC) See Rx Instructions .ROUTE .COMPLEX Qty: 120 RF: 0 Primary Care Provider: Lashay Rivers Referrals: Lashay Rivers DO [Primary Care Provider] - Disposition Disposition: Home, Self Care
--- NOTE | 2021-05-15 16:36 | ED.RN ---
pt left prior to tx. room found empty. no iv placed prior to leaving. bathrooms and waiting room checked. pt not found. maynor mike rn [id number]
== END 2021-05-15 16:38 | disposition home or self-care (01) ==
PROVIDERS: Emergency Provider Student in an Organized Health Care Education/Training Program; PCP Internal Medicine; Visit Provider Student in an Organized Health Care Education/Training Program
DX: J02.9 Acute pharyngitis, unspecified (principal); E11.9 Type 2 diabetes mellitus without complications; K22.0 Achalasia of cardia; E78.5 Hyperlipidemia, unspecified; I10 Essential (primary) hypertension; M19.90 Unspecified osteoarthritis, unspecified site; F32.A Depression, unspecified; Z86.718 Personal history of other venous thrombosis and embolism; M10.9 Gout, unspecified; Z87.442 Personal history of urinary calculi; E66.9 Obesity, unspecified; Z86.73 Personal history of transient ischemic attack (TIA), and cerebral infarction without residual deficits; Z79.899 Other long term (current) drug therapy; Z79.82 Long term (current) use of aspirin; Z79.84 Long term (current) use of oral hypoglycemic drugs; Z68.27 Body mass index [BMI] 27.0-27.9, adult
CPT/HCPCS: 99282

== ENCOUNTER 2021-06-29 08:07 | Outpatient (CLI) | payer OTHER, SELFPAY ==
--- NOTE | 2021-06-29 08:10 | RAD_ITS ---
STUDY: X-RAY - ESOPHAGUS (BARIUM SWALLOW) WITH FLUOROSCOPY REASON FOR EXAM: Female, 60 years old. Difficulty swallowing TECHNIQUE: 9 view(s) of the esophagus were obtained following swallowing of barium. Limited evaluation due to the patient''s condition. FLUOROSCOPY TIME (if supplied): (36 seconds) minutes/seconds COMPARISON: None. FINDINGS: There is no demonstrated esophageal foreign body. There is no demonstrated stricture or mucosal abnormality. Normal gastroesophageal junction, without a demonstrated hiatal hernia. The patient ingested a 12 mm tablet of barium without any difficulty. There is atherosclerotic calcification of the aortic arch with tortuosity of the descending aorta. Normal visualized pulmonary parenchyma. Normal visualized osseous structures of the thorax. RAD/Esophagus Dual Contrast IMPRESSION: Limited examination. No obstruction is seen. Electronically Signed: Sotero Hamlin MD at 13:37 EST ,
== END 2021-06-29 23:59 | disposition home or self-care (01) ==
PROVIDERS: PCP Internal Medicine; Referring Provider Internal Medicine Gastroenterology; Visit Provider Internal Medicine Gastroenterology
DX: R13.10 Dysphagia, unspecified (principal)
CPT/HCPCS: 74221

== ENCOUNTER 2021-06-30 10:40 | Day surgery (SDC) | payer OTHER, SELFPAY ==
--- NOTE | 2021-06-30 | IMM_PTH ---
PATIENT: JAYLEN WESLEY LOC: EN U#:[id number] AGE/SX: 60/F ROOM: RE06/30/[address]: Dr. Felix Olson DO : 1960 BED: DIS: 06/30/2021 SPEC #: [id number] RECD: 07/04/21 13:50 STATUS: KARI REQ #: [id number] [place]: 06/30/21 00:[address]: Felix Olson DEPT: IMMUNOHISTOCHEMISTRY RECD BY: Kathrine Hill ENTERED: 07/04/21 13:52 SP TYPE: IMMUNO OTHR DR: Dr. Lashay Rivers DO Tissues: Esophagus, NOS Procedures: BCL-2 (add) BCL-6 (add) CD20 (add) CD23 (add) CD3 (add) CD43 (add) CD45 (add) CD5 (add) CD79A (add) CYCLIN (add) Pankeratin (initial) PHYSICIAN & [address] [address] SPECIMEN INFORMATION: Tissue Source: Proximal esophagus biopsy Clinical Info: Dysphagia, cricopharyngeal achalasia Specimen Number: [id number] CPT code: 12877, 15729 x10 METHODOLOGY: Deparaffinized sections of prefer/formalin-fixed tissue or PAP/DQ stained slides are incubated with monoclonal/polyclonal antibodies/oligonucleotide probes. Localization is made via biotin free immunoperoxidase method. Appropriate controls are performed and reacted as expected. Results on target cell population are indicated in the following table: RESULTS: ANTIBODY / CLONE RESULT AE1-3 (AE1/AE3/PCK26) negative CD3 (PS1) positive CD5 (SP10) positive CD20 (L26) positive CD43 (L60) positive CD45 (RP2/18) positive CD79a (11E3) positive CD23 (1B12) positive BCL-2 (bcl-2/100/D5) positive BCL-6 (WW613W/A8) negative Cyclin D1/BCL-1 (SP4) negative These tests were developed and their performance characteristics determined by [facility]. They may not have been cleared or approved by the U.S. Food and Drug Administration. The FDA has determined that such clearance or approval is not necessary. The above immunohistochemical/dualISH markers are ordered and reviewed by the Pathologist. INTERPRETATION: Proximal esophagus, biopsy: Polytypic mucosal associated lymphoid tissue. AM:miquel 07/05/2021 Case has been reviewed in consultation with Dr. Steele who concurs with the above diagnosis. IDC:SJ
[2021-06-30 11:26] LABS: Bedside Glucose 161 mg/dL (74-106)
--- NOTE | 2021-06-30 11:35 | HP.PCM_ITS ---
History and Physical Date of Admission: 06/30/21 60 F who presents to the office today for 2 month f/u dysphagia She initially presented with several months of dysphagia and hoarse voice. Had prior diagnosis of hiatal hernia. Never had heartburn. EGD showed GEJ inflammation and a small hiatal hernia. She continues to take PPI and amitriptyline but notes no improvement. She had barium swallow to rule out aspiration versus functional disorder. Diagnoses from that test are oropharyngeal dysphagia and pharyngeal esophageal dysphagia. She had narrowing of the upper esophagus and decreased duration/opening the UES. The speech-language pathologist recommended outpatient dysphagia therapy then repeat swallow test. She c/o one wk of excess saliva, sore throat, substernal CP. The CP is intermittent, no relieving factors, worse if she eats solid foods. One day this week the CP radiated across entire chest, lasted whole day, was going to go to ED but then the pain stopped. Sucking on lemon drops which helps the sore throat. Continues to feel like food is stuck in esophagus, getting worse over time. Ate yogurt today, vergara in yogurt got stuck. Voice cracks. Not regurgitating food. No nausea or vomiting. Appetite is good. Weight is stable. Bowels are normal. ROS Const Constitutional: No fatigue or weight change ENT ENT: Positive for difficulty swallowing, hoarseness and sore throat; No ear or mastoid pain, ear discharge, ear pressure, hearing loss, tinnitus, dizziness/vertigo, balance problems, nosebleed/epistaxis, nasal congestion, nasal obstruction, nose pain, sinus pressure, sinus pain, nasal discharge, post nasal drip, facial pain, dental pain, dry mouth, bad breath, lip swelling, mouth lesions, mouth pain, neck pain, tongue swelling or throat swelling Resp Respiratory: No cough, chest congestion or shortness of breath Gastro GI: Positive for difficulty swallowing; No abdominal pain or change in bowel habits Musc Musculoskeletal: No neck pain Psych Psychiatric: No anxiety and No depression Endo Endocrine: Positive for increased thirst/drinking; No fatigue or weight change Aller/Imm Allergy/Immunologic: No lip swelling, throat swelling or tongue swelling Exam Const General: cooperative, no acute distress, well developed and well groomed HENMT Mouth: oral mucosae normal Throat: posterior oropharynx normal Neck Neck: normal visual inspection and supple Resp Effort & Inspection: normal respiratory effort, able to speak in complete sentences and symmetric chest movement Quality Reporting Tobacco Screening ([facility]) Smoking Status: Never smoker Assessment and Plan Assessment and Plan (1) Dysphagia: Status: Acute (2) Cricopharyngeal achalasia: Status: Acute Orders: Referrals: Speech Therapy R13.10 Plan - Jayne Serrano BRIQUETTER OPERATOR, BRIQUETTER OPERATOR-C: 60-year-old female with worsening dysphagia. I discussed her case with Dr. Olson, she has cricopharyngeal achalasia. I discussed the results of her barium swallow with her. We will refer her to speech therapy for outpatient dysphagia therapy. She is having increasing sensation of food sticking in esophagus, to the point where she feels she cannot swallow pills again. Prescriptions today are viscous lidocaine 10 mL every 8 hours, liquid Carafate every 6 hours, Cardizem 30 mg once a day to help dilate the esophagus. She will be scheduled for a repeat upper endoscopy with dilation. Follow-up 2 weeks after EGD Plan Details Other Medications: New: diltiazem HCl (Cardizem) 30 mg PO ONCE 30 tabs 1RF lidocaine HCl 2% (Lidocaine Viscous) 10 mL PO Q8H 200 mL 2RF sucralfate (Carafate) 10 mL PO QACHS 1,000 mL 2RF Follow Up: 2 wks after EGD I have re-examined the patient. There are no clinical changes since date of exam.
--- NOTE | 2021-06-30 12:00 | EGD_PTH ---
PATIENT: JAYLEN WESLEY LOC: EN U#:[id number] AGE/SX: 60/F ROOM: RE06/30/[address]: Dr. Felix Olson DO : 1960 BED: DIS: 06/30/2021 SPEC #: [id number] RECD: 06/30/21 13:44 STATUS: KARI JOHNNA #: [id number] [place]: 06/30/21 12:[address]: Felix Olson DEPT: SURGICAL PATHOLOGY RECD BY: Maria C Paulino ENTERED: 07/01/21 09:30 SP TYPE: EGD BIOPSY SIERRA DR: Dr. Lashay Rivers DO Tissues: Esophagus, NOS Procedures: Surgery Specimen Level IV HEADER OPERATION: EGD ([facility] dilation, biopsy PRE-OP DIAGNOSIS: Dysphagia, cricopharyngeal achalasia TISSUE SUBMITTED: Proximal esophagus biopsy MICROSCOPIC DIAGNOSIS Proximal esophagus, biopsy: Mucosal associated lymphoid tissue, favor benign. See comment. AM:miquel 07/04/2021 COMMENT Immunohistochemistry ([id number]) reveals polytypic lymphoid tissue beneath squamous mucosa. Clinical correlation is suggested. Case has been reviewed in consultation with Dr. Steele who concurs with the above diagnosis. IDC:CORRY MICROSCOPIC DESCRIPTION Slides are reviewed. GROSS DESCRIPTION Received in fixative is one container labeled with the patient's name and designated proximal esophagus biopsy. The specimen consists of multiple irregular fragments of light hebert soft tissue that in aggregate measure 0.6 x 0.3 x 0.1 cm. The specimen is totally submitted in one cassette. / CORRY:miquel 07/01/2021 TC:5 CPT: 66078
[2021-06-30 12:05] VITALS: BP 101/58; BP 129/77; PULSE 88; RESP 16; TEMP 36.1; O2SAT 95
[2021-06-30 12:10] VITALS: BP 129/77; BP 89/73; PULSE 83; RESP 16; O2SAT 98
[2021-06-30 12:15] VITALS: BP 105/64; BP 129/77; PULSE 85; RESP 16; O2SAT 98
[2021-06-30 12:20] VITALS: BP 129/77; BP 94/56; PULSE 74; RESP 16; O2SAT 99
--- NOTE | 2021-06-30 12:21 | OP.EGD_ITS ---
Patient Name: Dina Tinoco Procedure Date: 06/30/2021 11:32 AM Date of : 1960 Age: 60 Procedure: Upper GI endoscopy Indications: Dysphagia Providers: Felix Olson DO Referring MD: Lashay Rivers Medicines: See the Anesthesia note for documentation of the administered medications Patient Profile: This is a 60 year old female. Refer to note in patient chart for documentation of history and physical. Patient has symptoms of chronic dysphagia and dysphagia with both liquids and solids. She is status post EGD for dilation within the past three months. Complications: No immediate complications. Procedure: Pre-Anesthesia Assessment: - Prior to the procedure, a History and Physical was performed, and patient medications and allergies were reviewed. The risks and benefits of the procedure and the sedation options and risks were discussed with the patient. All questions were answered and informed consent was obtained. Patient identification and proposed procedure were verified by the physician. Mental Status Examination: normal. Prophylactic Antibiotics: The patient does not require prophylactic antibiotics. Prior Anticoagulants: The patient has taken no previous anticoagulant or antiplatelet agents. After reviewing the risks and benefits, the patient was deemed in satisfactory condition to undergo the procedure. The anesthesia plan was to use moderate sedation / analgesia (conscious sedation). Immediately prior to administration of medications, the patient was re-assessed for adequacy to receive sedatives. The heart rate, respiratory rate, oxygen saturations, blood pressure, adequacy of pulmonary ventilation, and response to care were monitored throughout the procedure. The physical status of the patient was re-assessed after the procedure. After obtaining informed consent, the endoscope was passed under direct vision. Throughout the procedure, the patient's blood pressure, pulse, and oxygen saturations were monitored continuously. The Endoscope was introduced through the mouth, and advanced to the second part of duodenum. The upper GI endoscopy was accomplished without difficulty. The patient tolerated the procedure well. Moderate Sedation: Moderate (conscious) sedation was administered by the endoscopy nurse and supervised by the endoscopist. The patient's oxygen saturation, heart rate, blood pressure and response to care were monitored. Total physician intraservice time was 15 minutes. Scope In: 11:54:14 AM Scope Out: 11:59:03 AM Total Procedure Duration Time 0 hours 4 minutes 49 seconds Findings: One benign-appearing, intrinsic stenosis was found 19 to 20 cm from the incisors. This stenosis was moderately severe and. The stenosis was traversed. A guide wire was placed, then the scope was withdrawn. Using the wire as a guide, dilation with an 18-19-20 mm balloon dilator was performed to 10 mm. The dilation site was examined and showed moderate improvement in luminal narrowing. Estimated blood loss was minimal. A small Schatzki's ring was seen in the distal esophagus. One 4 mm polyp with no bleeding was found 22 to 23 cm from the incisors. The polyp was removed with a jumbo cold forceps. Resection and retrieval were complete. Verification of patient identification for the specimen was done. Estimated blood loss was minimal. The entire examined stomach was normal. The second portion of the duodenum was normal. Impression: - Benign-appearing esophageal stenosis. Dilated. - Esophageal polyp(s) were found. Resected and retrieved. - Normal stomach. - Normal second portion of the duodenum. Recommendation: - Discharge patient to home. - Resume previous diet. - Continue present medications. - Await pathology results. Procedure Code(s): --- Professional --- 44640, Esophagogastroduodenoscopy, flexible, transoral; with insertion of guide wire followed by passage of dilator(s) through esophagus over guide wire 40309, 59, Esophagogastroduodenoscopy, flexible, transoral; with biopsy, single or multiple 11127, 59, Moderate sedation services provided by the same physician or other qualified health primary care pediatrician performing the diagnostic or therapeutic service that the sedation supports, requiring the presence of an independent trained observer to assist in the monitoring of the patient's level of consciousness and physiological status; initial 15 minutes of intraservice time, patient age 5 years or older CPT copyright 2017 [employer]. All rights reserved. The codes documented in this report are preliminary and upon bearing press machine operator review may be revised to meet current compliance requirements. Felix Olson DO 06/30/2021 12:20:49 PM This report has been signed electronically. Number of Addenda: 1 Note Initiated On: 06/30/2021 11:32 AM Addendum Number: 1 Addendum Date: 01/25/2022 6:37:56 AM MAC was used as sedation for this procedure. Felix Olson DO 01/25/2022 6:38:00 AM This report has been signed electronically.
--- NOTE | 2021-06-30 12:22 | OP.CCLET_ITS ---
01/25/2022 Lashay Rivers [address] [place] [address] Re : Upper GI endoscopy procedure for Dina Tinoco Dear Dr. Rivers This procedure was performed on June. My impressions and recommendations are as follows: Impressions : - Benign-appearing esophageal stenosis. Dilated. - Esophageal polyp(s) were found. Resected and retrieved. - Normal stomach. - Normal second portion of the duodenum. Recommendations : - Discharge patient to home. - Resume previous diet. - Continue present medications. - Await pathology results. My findings are described in the full procedure note, which is enclosed. If I can be of further assistance, please feel free to contact me at . Sincerely, Felix Olson, 06/30/2021 12:20:49 PM This report has been signed electronically.
[2021-06-30 12:25] VITALS: BP 129/77; BP 98/56; PULSE 70; RESP 16; TEMP 36.4; O2SAT 96
[2021-06-30 12:52] VITALS: BP 129/77
== END 2021-06-30 23:59 | disposition home or self-care (01) ==
LOC: EN 10:45 → AC 10:48
PROVIDERS: PCP Internal Medicine; Referring Provider Internal Medicine; Visit Provider Internal Medicine Gastroenterology
PROC: 0DJ08ZZ Inspection of Upper Intestinal Tract, Via Natural or Artificial Opening Endoscopic (ICD-10-PCS; CPT 43235; principal; 2021-06-30 11:55)
DX: K22.2 Esophageal obstruction (principal); K22.81 Esophageal polyp; K22.0 Achalasia of cardia; R13.10 Dysphagia, unspecified; E11.9 Type 2 diabetes mellitus without complications; E78.5 Hyperlipidemia, unspecified; Z20.822 Contact with and (suspected) exposure to COVID-19; M19.90 Unspecified osteoarthritis, unspecified site; Z79.84 Long term (current) use of oral hypoglycemic drugs; Z79.899 Other long term (current) drug therapy
CPT/HCPCS: 43248; 43239; 82962; 87426; 88305; 88341; 88342; J7120; C1769; J2405

== ENCOUNTER 2021-07-08 09:51 | Emergency (ER) | payer OTHER, SELFPAY ==
[2021-07-08 09:51] VITALS: BP 145/82; PULSE 80; RESP 18; TEMP 36.4; O2SAT 100; BMI 26.6
--- NOTE | 2021-07-08 10:03 | RAD_ITS ---
STUDY: X-RAY CHEST REASON FOR EXAM: Female, 60 years old. Cough TECHNIQUE: PA and lateral views of the chest. COMPARISON: Comparison is made with prior examination dated 09/29/2020. FINDINGS: The lungs are clear and expanded. Stable scattered calcified granulomas. There is no demonstrated pleural abnormality. Normal size heart. Normal mediastinum and amos. Normal visualized pulmonary arteries. There is atherosclerotic calcification of the aortic arch with tortuosity. There are diffuse degenerative changes of the visualized thoracic spine. Normal visualized ribs, clavicles, and shoulders. Status post cholecystectomy. RAD/Chest PA and Lateral IMPRESSION: No acute abnormality is seen. Electronically Signed: Sotero Hamlin MD at 10:41 EST ,
--- NOTE | 2021-07-08 10:04 | ED.VIS.DYS ---
HPI <EL Cueto - Last Filed: 07/08/21 11:01> History of Present Illness Chief Complaint: Shortness of Breath Narrative Narrative: 60-year-old female with PMH of HTN, HLD, DM2, chronic dysphagia and dysphonia presents with 2-day history of productive cough, fatigue, and diarrhea. She states she feels mildly short of breath. No chest pain. No fever, chills, nausea, vomiting, or muscle aches. No sick contacts. She is vaccinated for Covid. She has some chronic swallowing difficulties but denies choking or concern for aspiration. PFSH <EL Cueto - Last Filed: 07/08/21 11:01> [facility] Medical History (Updated 07/08/21 @ 10:[address] Louis Pompa MD) Abdominal pain Acute bilateral thoracic back pain Arthritis Back pain Bulging of intervertebral disc between L4 and L5 Dehydration Depression Diabetes Diabetes mellitus type 2 in obese Dietary restriction Difficulty with speech Diverticulosis DVT (deep venous thrombosis) Gait abnormality Gout Headache Hiatal hernia Hiatal hernia History of echocardiogram History of edema History of ganglion cyst History of ganglion cyst History of pain when walking History of stress test Hyperlipidemia Hypertension Leukopenia Mass of right upper extremity Nephrolithiasis Non-smoker Obesity (BMI 30.0-34.9) Osteoarthritis Syncope TIA (transient ischemic attack) Wears glasses Home Medications allopurinol 300 mg PO DAILY 08/10/14 [History Last Taken 10/11/18] aspirin 81 mg PO DAILY@0800 #30 tab 09/15/15 [Rx Last Taken 06/27/21] cholecalciferol (vitamin D3) 7,000 unit PO DAILY 03/06/17 [History Last Taken 10/11/18] sertraline 50 mg PO DAILY #30 tab 10/13/18 [Rx Last Taken Unknown] ascorbic acid (vitamin C) 1,000 mg tablet 1 g PO DAILY tab 05/14/20 [History Last Taken Unknown] glipizide 10 mg tablet 10 mg PO DAILY tab 05/14/20 [History Last Taken Unknown] lisinopril 10 mg tablet 10 mg PO BID 05/14/20 [History Last Taken 01/24/21 08:00] metformin 1,000 mg tablet 500 mg PO BIDCM tab 05/14/20 [History Last Taken Unknown] turmeric root extract 500 mg capsule 500 mg PO DAILY 05/21/20 [History Last Taken Unknown] apixaban [Eliquis] 5 mg PO BID 09/29/20 [History Last Taken 06/27/21] magnesium oxide 400 mg PO DAILY 09/29/20 [History Last Taken Unknown] amitriptyline 10 mg tablet See Rx Instructions .ROUTE .COMPLEX #30 tab 03/14/21 [Rx Last Taken Unknown] diltiazem HCl 30 mg tablet 30 mg PO ONCE #30 tab 05/04/21 [Rx Last Taken Unknown] lidocaine HCl 2 % mucosal solution 10 ml PO Q8H #200 ml 05/04/21 [Rx Last Taken Unknown] sucralfate 100 mg/mL oral suspension 10 ml PO QACHS #1000 ml 05/04/21 [Rx Last Taken Unknown] albuterol sulfate [Ventolin HFA] 1 - 2 puff INHALATION Q4H PRN PRN #6.7 g 05/15/21 [Rx Last Taken Unknown] omeprazole 40 mg capsule,delayed release See Rx Instructions .ROUTE .COMPLEX #120 cap 06/17/21 [Rx Last Taken Unknown] pioglitazone 15 mg PO DAILY 06/29/21 [History Last Taken Unknown] simvastatin 40 mg PO DAILY 06/29/21 [History Last Taken Unknown] tizanidine 4 mg PO PRN PRN 06/29/21 [History Last Taken Unknown] Allergy/AdvReac Type Severity Reaction Status Date / Time Quinolones Allergy Swelling Verified 07/08/21 09:53 codeine AdvReac Nausea Verified 07/08/21 09:53 Family History Brother Colon cancer Diabetes Father Diabetes Hypertension High cholesterol Mother Heart disease High cholesterol Hypertension Surgical History History of carpal tunnel surgery of right wrist History of total right knee replacement History of tubal ligation Hx laparoscopic cholecystectomy Hx of appendectomy Hx of lithotripsy Social History Smoking Status: Never smoker alcohol intake: never substance use type: does not use ROS <EL Cueto - Last Filed: 07/08/21 11:01> ROS ED Constitutional Constitutional ED: Denies chills or fever(s) Eyes Eyes: Denies change in vision ENT ENT ED: Reports rhinorrhea and sore throat; Denies ear pain Cardiovascular Cardiovascular: Denies chest pain, orthopnea or palpitations Respiratory/Chest Respiratory/Chest: Reports cough, dyspnea and sputum; Denies dyspnea on exertion or orthopnea Gastrointestinal Gastrointestinal: Reports diarrhea; Denies abdominal pain, constipation, melena, nausea or vomiting Genitourinary Genitourinary ED: Denies dysuria Musculoskeletal Musculoskeletal: Denies myalgias Integumentary Denies rash Neurologic Neurologic: Denies headache(s) or weakness EXAM <EL Cueto - Last Filed: 07/08/21 11:01> Physical Exam Const Vital Signs: 07/08/21 09:51 07/08/21 10:21 Temperature 97.5 F L Temperature Source Temporal Pulse Rate 80 Respiratory Rate 18 Respiratory Effort Short of Breath Respiratory Depth Normal Respiratory Pattern Tachypnea Blood Pressure 145/82 H Blood Pressure Mean 103 Pulse Ox 100 Oxygen Delivery Method Room Air Positive well nourished and well developed General Appearance ED: well developed and NAD HEENT Reports moist mucous membranes atraumatic Eyes PERRL and EOMs intact bilaterally Neck no lymphadenopathy and no JVD Resp normal respiratory effort and clear to auscultation bilaterally Cardio regular rate, regular rhythm and no murmurs GI non-tender and non-distended Palpation: soft Extremity normal to inspection General Extremety ED: Negative for edema General Extremity: Negative for edema Neuro oriented x3 Sensorium / Orientation: alert Psych mental status grossly normal Skin no wounds and skin turgor normal Lesions: no lesions Rashes: no rashes <Dr. Louis Pompa MD - Last Filed: 07/08/21 10:58> Physical Exam Const Vital Signs: 07/08/21 09:51 07/08/21 10:21 Temperature 97.5 F L Temperature Source Temporal Pulse Rate 80 Respiratory Rate 18 Respiratory Effort Short of Breath Respiratory Depth Normal Respiratory Pattern Tachypnea Blood Pressure 145/82 H Blood Pressure Mean 103 Pulse Ox 100 Oxygen Delivery Method Room Air MDM <EL Cueto - Last Filed: 07/08/21 11:01> [facility] Narrative Medical decision making narrative: Patient presents with 2-day history of cough. She appears well nontoxic. Vital signs within normal limits. Her exam is benign. Lungs are clear to auscultation. Heart regular rate and rhythm. ED attending interpretation of chest x-ray shows normal heart size and no acute infiltrate, edema, or effusion. At this time she most likely has a viral URI and no antibiotics are indicated. She was counseled on signs that would warrant return and was discharged in stable condition. I also provided an ENT referral for her chronic speech difficulty. Radiography Diagnostic Testing: Clinical Impression(s) from Imaging Studies Chest X-Ray 07/08/21 10:03 IMPRESSION: No acute abnormality is seen. Electronically Signed: Sotero Hamlin MD at 10:41 EST , <Dr. Louis Pompa MD - Last Filed: 07/08/21 10:58> [facility] Narrative Medical decision making narrative: 60-year-old female has a history of chronic dysphagia. Presents today complaining of a cough. I evaluate this patient with our physician bilingual administrative assistant. Exam is benign. She is a chronic issue with her speech that is not new today. Her posterior pharynx is moist and pink. No trouble swallowing at this time of breathing. Neck nontender. Lungs are clear to auscultation. Heart regular rate and rhythm. Otherwise exam benign. X-ray was obtained and was unremarkable. This will be treated as a viral illness. No antibiotics. She also needs follow-up for further evaluation for her speech difficulty. Radiography Chest X-Ray - ED: 1 View, Read by ED Physician, Read by Radiologist, Heart, Lungs, Mediastinum, Bony Structures and No Acute Disease Diagnostic Testing: Clinical Impression(s) from Imaging Studies Chest X-Ray 07/08/21 10:03 IMPRESSION: No acute abnormality is seen. Electronically Signed: Sotero Hamlin MD at 10:41 EST , Chest x-ray, 2 views, AP and lateral interpreted by myself and radiologist shows no acute abnormality. Normal cardiac silhouette. No infiltrate. Discharge Plan Triage Chief Complaint: Shortness of Breath ED Provider: Marimar Meneses Dx/Rx/DC Orders Clinical Impression: Upper respiratory infection, viral Instructions: ED URI, Viral, No Abx (Adult) Prescriptions: No Action metformin 1,000 mg tablet 500 mg PO BIDCM RF: 0 lisinopril 10 mg tablet 10 mg PO BID RF: 0 ascorbic acid (vitamin C) 1,000 mg tablet 1 g PO DAILY RF: 0 turmeric root extract 500 mg capsule 500 mg PO DAILY RF: 0 diltiazem HCl [Cardizem] 30 mg tablet 30 mg PO ONCE Qty: 30 RF: 1 lidocaine HCl [Lidocaine Viscous] 2 % solution 10 ml PO Q8H Qty: 200 RF: 2 sucralfate [Carafate] 100 mg/mL suspension 10 ml PO QACHS Qty: 1000 RF: 2 allopurinol 300 MG tablet 300 mg PO DAILY RF: 0 glipizide 10 mg tablet 10 mg PO DAILY RF: 0 aspirin 81 MG tablet 81 mg PO DAILY@0800 Qty: 30 RF: 0 cholecalciferol (vitamin D3) 5,000 UNIT tablet,disintegrating 7,000 unit PO DAILY RF: 0 sertraline 50 MG tablet 50 mg PO DAILY Qty: 30 RF: 0 magnesium oxide 400 mg magnesium Tablet 400 mg PO DAILY RF: 0 Eliquis 5 mg tablet 5 mg PO BID RF: 0 albuterol sulfate [Ventolin HFA] 90 mcg/actuation HFA aerosol inhaler 1 - 2 puff inhalation Q4H PRN PRN (Reason: Wheezing) Qty: 6.7 RF: 0 pioglitazone 15 mg tablet 15 mg PO DAILY RF: 0 tizanidine 4 mg tablet 4 mg PO PRN PRN (Reason: Muscle Pain) RF: 0 simvastatin 40 mg tablet 40 mg PO DAILY RF: 0 amitriptyline 10 mg tablet See Rx Instructions .ROUTE .COMPLEX Qty: 30 RF: 3 omeprazole 40 mg capsule,delayed release(DR/EC) See Rx Instructions .ROUTE .COMPLEX Qty: 120 RF: 0 Primary Care Provider: Lashay Rivers Referrals: Amol Bonner MD [STAFF PHYSICIAN] - Lashay Rivers DO [Primary Care Provider] - Activity Restrictions/Additional Instructions: Your chest x-ray looked clear with no signs of pneumonia. At this time your symptoms are most likely from a viral illness. If your symptoms worsen or you have difficulty breathing come back to the ER. Provided a phone number for pain ear nose throat doctor to follow-up for your chronic voice issues. Disposition Disposition: Home, Self Care
[2021-07-08 11:05] VITALS: RESP 18
== END 2021-07-08 11:05 | disposition home or self-care (01) ==
PROVIDERS: Emergency Provider Physician Assistant; PCP Internal Medicine; Visit Provider Physician Assistant
DX: J06.9 Acute upper respiratory infection, unspecified (principal); E11.9 Type 2 diabetes mellitus without complications; B34.9 Viral infection, unspecified; R47.9 Unspecified speech disturbances; R06.02 Shortness of breath; E78.5 Hyperlipidemia, unspecified; I10 Essential (primary) hypertension; R13.10 Dysphagia, unspecified; R49.0 Dysphonia; M19.90 Unspecified osteoarthritis, unspecified site; E66.9 Obesity, unspecified; Z79.01 Long term (current) use of anticoagulants; Z79.82 Long term (current) use of aspirin; Z79.84 Long term (current) use of oral hypoglycemic drugs; Z79.899 Other long term (current) drug therapy; Z86.73 Personal history of transient ischemic attack (TIA), and cerebral infarction without residual deficits; Z96.651 Presence of right artificial knee joint
CPT/HCPCS: 71046; 99282

== ENCOUNTER 2021-08-15 12:37 | Outpatient (CLI) | payer OTHER, SELFPAY ==
--- NOTE | 2021-08-15 16:01 | ST.MBS ---
Modified Barium Swallow - Patient Information Study Date: 08/15/21 Study Time: 13:00 Direct Billable Minutes: 140 Total Minutes procedure & reportin Diagnosis: Dysphagia, unspecified (R13.10) Referring Physician: Jayne Serrano NP Reason for Referral: Objectively assess swallow function, risk for aspiration, and determine recommendations for least restrictive diet textures and compensatory strategies to improve safety of swallow. Medical History: Patient is a 60 year old female with past medical history of tortuous esophagus, esophageal ring, silent GERD, TIA, DM type 2, HTN, CVA (~7 years ago), & TIA. The patient participated in MBS study 04/26/2021 to objectively assess swallowing function which recommended soft and bite-sized food textures and thin liquids via tsp ONLY. She was also recommended to utilize double effortful swallow on each bite and sip, crush pills in applesauce/puree, and cough and re-swallow during meals at reasonable intervals. She was referred for OP speech therapy. Pt did not receive doctor's order for speech therapy immediately following MBS study, but was eventually evaluated by OP ST 07/04/2021 with recommendations to continue soft and bite size textures / thin liquids by tsp with the above mentioned strategies. She has presented with worsening dysarthria and dysphagia during POC and her OP COURT OF APPEALS JUDGE recommended her for a neurology consult and repeat MBS study to reassess swallow function and aspiration risk. 06/30/2021 she had upper GI endoscopy with esophageal stenosis, which was dilated. Polyps also resected. GEJ inflammation and small hiatal hernia found. Current Diet Ordered: Soft and bite size textures / thin liquids Mental Status: WNL Respiratory Status: Oxygenating on Room Air - Penetration-Aspiration Scale Penetration-Aspiration Scale: OBJECTIVE ASSESSMENT OF SWALLOW FUNCTION (QUANTITATIVE ? PER TRIAL): PENETRATION / ASPIRATION SCALE (DEXTER): 1 = does not enter airway 2 = enters airway/above vocal folds/ejected 3 = enters airway/above vocal folds/not ejected 4 = enters airway/contacts vocal folds/ejected 5 = enters airway/contacts vocal folds/not ejected 6 = enters airway/below vocal folds/ejected 7 = enters airway/below vocal folds/not ejected despite effort 8 = enters airway/below vocal folds/no effort - Penetration-Aspiration Scale Score Thin Liquid via teaspoon Result: 8= enters airway/below vocal folds/no effort Thin Liquid via teaspoon Trial 2 Result: 8= enters airway/below vocal folds/no effort Comment: COURT OF APPEALS JUDGE cued cough and reswallow, which was somewhat effective at clearing the contrast; however, pt still aspirated contrast remaining in the laryngeal vestibule after the swallow despite use of strategy. Thin Liquid via small single sip from cup Result: 8= enters airway/below vocal folds/no effort [place] Thick Liquid via teaspoon Result: 3= enters airways/above vocal folds/not ejected Honey Thick Liquid via teaspoon Result: 5= enters airways/contacts vocal folds/not ejected Comment: Post prandial aspiration of nectar thick trial evident at the start of this trial. Pudding via teaspoon Result: 8= enters airway/below vocal folds/no effort Comment: Cued chin tuck after multiple swallows with improved clearance of residue from the vallecula; however, the patient penetrated the pudding thick trial during the chin tuck without ejection from the laryngeal vestibule. Pudding via teaspoon Chin tuck Result: 8= enters airway/below vocal folds/no effort Honey Thick Liquid via teaspoon Trial 2 Result: 3= enters airways/above vocal folds/not ejected - Oral Phase Labial Seal: Escape beyond mid-chin Tongue Control During Bolus Hold: Posterior escape of less than half of bolus Bolus Transport/Lingual Motion: Repetitive/disorganized tongue motion Oral Residue: Residue collection on oral structures - Pharyngeal Phase Initiation of Pharyngeal Swallow: Bolus head in pyriforms Laryngeal Elevation: Partial superior movement thyroid cart/partial apprx aryt-epig petiole Anterior Hyoid Excursion: No anterior movement - Little to no anterior hyoid excursion Epiglottic Movement: Partial inversion Laryngeal Vestibule Closure at Height of Swallow: Incomplete; narrow column of air/contrast in laryngeal vestibule Pharyngeal Stripping Wave: Present - diminished Pharyngoesophageal Segment Opening: Minimal distension and minimal duration; marked obstruction of flow Tongue Base Retraction: Wide column of contrast between tongue base & post. pharyngeal wall Pharyngeal Residue: Majority of contrast within or on pharyngeal structures - Esophageal Phase Esophageal Clearance: Esophageal retention - Treatment Strategies Effects of treatment strategies attemped:: Chin tuck = Not effective. Cough and reswallow = Somewhat effective. Decreased bolus size = Somewhat effective. - Diagnosis/Impression Diagnosis: Severe oropharyngeal phase dysphagia (R13.12) Impression: The oral phase is marked by decreased bolus control with posterior loss to the pyriforms prior to swallow onset, mild-moderate oral residue after the swallow, disorganized tongue motion for A-P transport of bolus. The pharyngeal phase is marked by decreased airway closure during the swallow, severe pharyngeal residue after the swallow. She has severely decreased anterior hyoid excursion, as well as decreased laryngeal elevation during the swallow. She presents with decreased tongue base retraction and decreased UES opening resulting in mod-severe pharyngeal residues in the vallecula and pyriforms. She demonstrated aspiration of thin liquids via cup, thin liquids via tsp, and pudding via tsp during the swallow from residue in the pyriforms when completing multiple swallows. She demonstrated post prandial aspiration of nectar thick liquids via tsp. She demonstrated penetration of honey thick liquids to the vocal folds without full ejection. The patient is at HIGH right for aspiration for all consistencies. In certain trials, she demonstrated SILENT aspiration of thin, nectar thick (post prandial), and pudding consistencies. She would intermittently elicit throat clear or weak cough during the study between trials. With honey thick trial penetrating to the vocal folds, she did present with delayed cough with trace contrast remaining in the laryngeal vestibule. - Recommendations Diet: NPO - Would consider alternative means of nutrition and hydration Recommend Repeat Modified Barium Swallow: TBD Need for Skilled Speech Therapy Services: Yes Comment: Will recommend continued skilled OP speech therapy to address severe dysarthria and dysphagia. Pending results of neurology evaluation, would consider the patient for oropharyngeal strengthening to address impairments in tongue base retraction, anterior hyoid excursion, laryngeal elevation, and UES opening. Would consider the patient for implementation of [place] Free Water Protocol (FFWP) to encourage hydration, for patient comfort, and to promote increased opportunities for swallowing throughout the patient?s day. Education Completed: 1. Described result of evaluation. - Reviewed results of the evaluation with the patient, patient's , Chung, and patient's daughter, Rosa. Discussed recommendation for NPO at this time, and COURT OF APPEALS JUDGE called the patient's ordering provider to consider the patient for alternative means of nutrition., 7. Pt requires further education on strategies & risks., 8. Family/caregivers require further education on strategies & risks. Comment: Thoroughly reviewed images of the study and educated the patient and her family in high risk for aspiration and aspiration related illness. COURT OF APPEALS JUDGE expressed concern for the patient being able to safely obtain adequate nutrition and hydration by mouth due to aspiration and difficulty with pharyngeal clearance. Pt and pt's family verbalized understanding. Pt's ordering provider to call the patient to further discuss the COURT OF APPEALS JUDGE's recommendation for NPO with alternative means of nutrition. - Status Active ST Patient: Active - Contact Information [facility] Speech Therapy:: Qian Tineo M.A. [facility] JUDGE Speech-Language Pathologist [facility] [address] [place] [address] [email or web address] [phone] 08/15/21 16:24
== END 2021-08-15 23:59 | disposition home or self-care (01) ==
LOC: RAD 12:39
PROVIDERS: PCP Internal Medicine; Referring Provider Nurse Practitioner Adult Health; Visit Provider Nurse Practitioner Adult Health
DX: R10.13 Epigastric pain (principal)
CPT/HCPCS: 74230; 92611

== ENCOUNTER 2021-08-16 11:39 | Day surgery (SDC) | payer OTHER, SELFPAY ==
[2021-08-16] VITALS (8 sets, daily range): BP systolic 119–157; BP diastolic 66–92; PULSE 70–84; RESP 16–18; TEMP 36.4–36.8; O2SAT 99–100; BMI 27.3
--- NOTE | 2021-08-16 12:44 | PCM.HP.BLA ---
History and Physical Date of Admission: 08/16/21 60 F who presents to the office today for 2 month f/u dysphagia She initially presented with several months of dysphagia and hoarse voice. Had prior diagnosis of hiatal hernia. Never had heartburn. EGD showed GEJ inflammation and a small hiatal hernia. She continues to take PPI and amitriptyline but notes no improvement. She had barium swallow to rule out aspiration versus functional disorder. Diagnoses from that test are oropharyngeal dysphagia and pharyngeal esophageal dysphagia. She had narrowing of the upper esophagus and decreased duration/opening the UES. The speech-language pathologist recommended outpatient dysphagia therapy then repeat swallow test. She c/o one wk of excess saliva, sore throat, substernal CP. The CP is intermittent, no relieving factors, worse if she eats solid foods. One day this week the CP radiated across entire chest, lasted whole day, was going to go to ED but then the pain stopped. Sucking on lemon drops which helps the sore throat. Continues to feel like food is stuck in esophagus, getting worse over time. Ate yogurt today, vergara in yogurt got stuck. Voice cracks. Not regurgitating food. No nausea or vomiting. Appetite is good. Weight is stable. Bowels are normal. On her repeat swallowing test she had a lot of aspiration and was told that she cannot take any food or medicines per mouth. ROS Const Constitutional: No fatigue or weight change ENT ENT: Positive for difficulty swallowing, hoarseness and sore throat; No ear or mastoid pain, ear discharge, ear pressure, hearing loss, tinnitus, dizziness/vertigo, balance problems, nosebleed/epistaxis, nasal congestion, nasal obstruction, nose pain, sinus pressure, sinus pain, nasal discharge, post nasal drip, facial pain, dental pain, dry mouth, bad breath, lip swelling, mouth lesions, mouth pain, neck pain, tongue swelling or throat swelling Resp Respiratory: No cough, chest congestion or shortness of breath Gastro GI: Positive for difficulty swallowing; No abdominal pain or change in bowel habits Musc Musculoskeletal: No neck pain Psych Psychiatric: No anxiety and No depression Endo Endocrine: Positive for increased thirst/drinking; No fatigue or weight change Aller/Imm Allergy/Immunologic: No lip swelling, throat swelling or tongue swelling Exam Const General: cooperative, no acute distress, well developed and well groomed HENGA Mouth: oral mucosae normal Throat: posterior oropharynx normal Neck Neck: normal visual inspection and supple Resp Effort & Inspection: normal respiratory effort, able to speak in complete sentences and symmetric chest movement Quality Reporting Tobacco Screening (CMS 138) Smoking Status: Never smoker Assessment and Plan Assessment and Plan (1) Dysphagia: Status: Acute (2) Cricopharyngeal achalasia: Status: Acute Orders: Referrals: Speech Therapy R13.10 Plan - Jayne Serrano SECONDARY SPECIAL EDUCATION TEACHER, SECONDARY SPECIAL EDUCATION TEACHER-C: 60-year-old female with worsening dysphagia. I discussed her case with Dr. Olson, she has cricopharyngeal achalasia. I discussed the results of her barium swallow with her. We will refer her to speech therapy for outpatient dysphagia therapy. She is having increasing sensation of food sticking in esophagus, to the point where she feels she cannot swallow pills again. Prescriptions today are viscous lidocaine 10 mL every 8 hours, liquid Carafate every 6 hours, Cardizem 30 mg once a day to help dilate the esophagus. She will be scheduled for a EGD with PEG placement Plan Details Other Medications: New: diltiazem HCl (Cardizem) 30 mg PO ONCE 30 tabs 1RF lidocaine HCl 2% (Lidocaine Viscous) 10 mL PO Q8H 200 mL 2RF sucralfate (Carafate) 10 mL PO QACHS 1,000 mL 2RF
[2021-08-16] MEDS: Lactated Ringers 1,000 ML 15 ML IV (13:20)
[2021-08-16 13:31] LABS: Bedside Glucose 117 mg/dL (74-106)
--- NOTE | 2021-08-16 13:32 | SUR.PREOP ---
DR BARBER MADE AWARE THAT PATIENT HAD HER ELIQUIS AND ASPRIN YESTERDAY MORNING, BUT NOT TODAY. PRADIP COFFEY RN WAS MADE AWARE AND IS GOING TO TELL DR. JETER ABOUT THIS.
--- NOTE | 2021-08-16 17:01 | OP.EGD_ITS ---
Patient Name: Dina Tinoco Procedure Date: 08/16/2021 3:15 PM Date of : 1960 Age: 60 Procedure: Upper GI endoscopy Indications: Dysphagia Providers: Felix Olson DO Medicines: Sedation Required Anesthesia Staff Assistance Patient Profile: This is a 60 year old female. Refer to note in patient chart for documentation of history and physical. Patient has symptoms of dysphagia with both liquids and solids. Complications: No immediate complications. Procedure: Pre-Anesthesia Assessment: - Prior to the procedure, a History and Physical was performed, and patient medications and allergies were reviewed. The patient is competent. The risks and benefits of the procedure and the sedation options and risks were discussed with the patient. All questions were answered and informed consent was obtained. Patient identification and proposed procedure were verified by the physician in the pre-procedure area. Mental Status Examination: alert and oriented. Airway Examination: normal oropharyngeal airway and neck mobility. Respiratory Examination: clear to auscultation. CV Examination: normal. Prophylactic Antibiotics: The patient does not require prophylactic antibiotics. Prior Anticoagulants: The patient has taken no previous anticoagulant or antiplatelet agents. ASA Grade Assessment: II - A patient with mild systemic disease. After reviewing the risks and benefits, the patient was deemed in satisfactory condition to undergo the procedure. The anesthesia plan was to use moderate sedation / analgesia (conscious sedation). Immediately prior to administration of medications, the patient was re-assessed for adequacy to receive sedatives. The heart rate, respiratory rate, oxygen saturations, blood pressure, adequacy of pulmonary ventilation, and response to care were monitored throughout the procedure. The physical status of the patient was re-assessed after the procedure. After obtaining informed consent, the endoscope was passed under direct vision. Throughout the procedure, the patient's blood pressure, pulse, and oxygen saturations were monitored continuously. The Endoscope was introduced through the mouth, and advanced to the second part of duodenum. The upper GI endoscopy was accomplished without difficulty. The patient tolerated the procedure well. Moderate Sedation: Moderate (conscious) sedation was administered by the endoscopy nurse and supervised by the endoscopist. The patient's oxygen saturation, heart rate, blood pressure and response to care were monitored. Total physician intraservice time was 15 minutes. Scope In: 3:33:48 PM Scope Out: 3:48:44 PM Total Procedure Duration Time 0 hours 14 minutes 56 seconds Findings: The examined esophagus was normal. The entire examined stomach was normal. The patient was placed in the supine position for PEG placement. The stomach was insufflated to appose gastric and abdominal lassiter. A site was located in the cardia with excellent transillumination for placement. The abdominal wall was marked and prepped in a sterile manner. The area was anesthetized with 5 mL of 0.5% lidocaine. The trocar needle was introduced through the abdominal wall and into the stomach under direct endoscopic view. A snare was introduced through the endoscope and opened in the gastric lumen. The guide wire was passed through the trocar and into the open snare. The snare was closed around the guide wire. The endoscope and snare were removed, pulling the wire out through the mouth. A skin incision was made at the site of needle insertion. The externally removable 20 Fr EndoVive Safety gastrostomy tube was lubricated. The G-tube was tied to the guide wire and pulled through the mouth and into the stomach. The trocar needle was removed, and the gastrostomy tube was pulled out from the stomach through the skin. The external bumper was attached to the gastrostomy tube, and the tube was cut to remove the guide wire. The final position of the gastrostomy tube was confirmed by relook endoscopy, and skin marking noted to be 4 cm at the external bumper. The final tension and compression of the abdominal wall by the PEG tube and external bumper were checked and revealed that the bumper was loose and lightly touching the skin. The feeding tube was capped, and the tube site cleaned and dressed. The second portion of the duodenum was normal. Impression: - Normal esophagus. - Normal stomach. - Normal second portion of the duodenum. - An externally removable PEG placement was successfully completed. - No specimens collected. Recommendation: - Discharge patient to home. - NPO. - Please follow the post-PEG recommendations including: Nutrition consult for formula and volume, NPO x4 hrs then water today, may use PEG today for meds and water, may use PEG tomorrow for feedings, antibiotic ointment to site and check site for bleeding q 4 hrs. -Leaking: All tubes leak a small amount. Keeping it clean and dry with some gauze may be necessary. Using Vaseline? daily or as needed protects the skin from burning. If the leaking is getting worse, it may be that the tube needs to be adjusted by your doctor. Redness: It is normal to have some redness at the tube site. It is usually due to irritation from enteric (intestinal) contents. Keeping it clean and dry with some gauze may be necessary. Using Vaseline daily or as needed protects the skin from burning. Infections are rare, but a doctor should look at the tube if you have increased swelling or increased pain associated with the redness. Dislodged tube: Tubes can fall out or accidentally get pulled out on rare occasions. If this happens, please call the office. It is not dangerous, but we like to have them replaced as soon as possible. If the tube has been in place for a few weeks, we can often replace it for you in the office and check an X-ray to make sure it is in good position. If it comes out earlier than a few weeks, we will need to ask the radiologist to help us replace it safely or, on VERY rare occasions, replace it in the operating room. If your tube gets pulled back a little but is not all the way out, please try to gently push it in again, and secure it with tape. If you are uncomfortable or unsure about pushing it in, please call the office. Severe abdominal pain/fevers/vomiting or other signs of concern: Rarely, major problems can occur with feeding tubes such as bowel obstruction, perforation or intraperitoneal/subcutaneous injection of feeds. If you have severe nausea, vomiting, fever greater than 101 degrees, severe abdominal pain or other se Procedure Code(s): --- Professional --- 77896, Esophagogastroduodenoscopy, flexible, transoral; with directed placement of percutaneous gastrostomy tube G0500, Moderate sedation services provided by the same physician or other qualified health career placement services counselor performing a gastrointestinal endoscopic service that sedation supports, requiring the presence of an independent trained observer to assist in the monitoring of the patient's level of consciousness and physiological status; initial 15 minutes of intra-service time; patient age 5 years or older (additional time may be reported with 19326, as appropriate) CPT copyright 2017 [employer]. All rights reserved. The codes documented in this report are preliminary and upon industrial cleaner review may be revised to meet current compliance requirements. Felix Olson DO 08/16/2021 5:01:23 PM This report has been signed electronically. Number of Addenda: 1 Note Initiated On: 08/16/2021 3:15 PM Addendum Number: 1 Addendum Date: 01/26/2022 6:32:38 AM MAC was used as sedation for this procedure. Felix Olson DO 01/26/2022 6:32:42 AM This report has been signed electronically.
--- NOTE | 2021-08-16 17:02 | OP.CCLET_ITS ---
01/26/2022 Lashay Rivers [address] [place] [address] Re : Upper GI endoscopy procedure for Dina Tinoco Dear Dr. Rivers This procedure was performed on Monday, August 16, 2021. My impressions and recommendations are as follows: Impressions : - Normal esophagus. - Normal stomach. - Normal second portion of the duodenum. - An externally removable PEG placement was successfully completed. - No specimens collected. Recommendations : - Discharge patient to home. - NPO. - Please follow the post-PEG recommendations including: Nutrition consult for formula and volume, NPO x4 hrs then water today, may use PEG today for meds and water, may use PEG tomorrow for feedings, antibiotic ointment to site and check site for bleeding q 4 hrs. -Leaking: All tubes leak a small amount. Keeping it clean and dry with some gauze may be necessary. Using Vaseline? daily or as needed protects the skin from burning. If the leaking is getting worse, it may be that the tube needs to be adjusted by your doctor. Redness: It is normal to have some redness at the tube site. It is usually due to irritation from enteric (intestinal) contents. Keeping it clean and dry with some gauze may be necessary. Using Vaseline daily or as needed protects the skin from burning. Infections are rare, but a doctor should look at the tube if you have increased swelling or increased pain associated with the redness. Dislodged tube: Tubes can fall out or accidentally get pulled out on rare occasions. If this happens, please call the office. It is not dangerous, but we like to have them replaced as soon as possible. If the tube has been in place for a few weeks, we can often replace it for you in the office and check an X-ray to make sure it is in good position. If it comes out earlier than a few weeks, we will need to ask the radiologist to help us replace it safely or, on VERY rare occasions, replace it in the operating room. If your tube gets pulled back a little but is not all the way out, please try to gently push it in again, and secure it with tape. If you are uncomfortable or unsure about pushing it in, please call the office. Severe abdominal pain/fevers/vomiting or other signs of concern: Rarely, major problems can occur with feeding tubes such as bowel obstruction, perforation or intraperitoneal/subcutaneous injection of feeds. If you have severe nausea, vomiting, fever greater than 101 degrees, severe abdominal pain or other serious problems, call your doctor or go. - Resume aspirin and Eliquis (apixaban) at prior doses tomorrow. My findings are described in the full procedure note, which is enclosed. If I can be of further assistance, please feel free to contact me at . Sincerely, Felix Friend, 08/16/2021 5:01:23 PM This report has been signed electronically.
== END 2021-08-16 17:22 | disposition home or self-care (01) ==
LOC: EN 11:40 → AC 11:42
PROVIDERS: PCP Internal Medicine; Referring Provider Internal Medicine; Visit Provider Internal Medicine Gastroenterology
PROC: 0DJ08ZZ Inspection of Upper Intestinal Tract, Via Natural or Artificial Opening Endoscopic (ICD-10-PCS; CPT 43235; principal; 2021-08-16 14:40)
DX: R13.10 Dysphagia, unspecified (principal); Z93.1 Gastrostomy status; K22.0 Achalasia of cardia
CPT/HCPCS: 43246; 82962; J7120

== ENCOUNTER 2021-08-17 08:33 | Outpatient (CLI) | payer OTHER, SELFPAY ==
--- NOTE | 2021-08-17 14:26 | NEURO ---
NCS and/or EMG Patient Report Ordering Doctor: Jamarcus Fong DATE OF SERVICE: 08/17/21 Dina Tinoco presents for electrodiagnostic testing of the right upper and lower limb. She has felt the onset of upper limb weakness, dysarthria, and dysphagia. She had a feeding tube placed. She also has been noted to have tongue atrophy and fasciculations. Electrodiagnostic Findings: Median motor nerve demonstrates prolonged distal latency with reduced reduced amplitude and conduction velocity. Right ulnar motor response is within normal limits. Normal right peroneal motor response. Right tibial motor response reveals decrease in amplitude. Prolonged right median, right tibial and right peroneal F waves. H reflex prolonged bilaterally. Prolonged median sensory latency at the wrist. Normal ulnar and radial sensory responses. Absent right sural and superficial peroneal responses. Needle EMG testing demonstrates fasciculations with 1+ positive sharp waves in the right anterior tibialis. Motor units are of normal amplitude and duration in the right anterior tibialis. No membrane instability is noted in the vastus medialis, peroneus longus or gastrocnemius without neurogenic motor units. The right deltoid demonstrates 1+ positive sharp waves with fasciculations. There is decreased motor unit recruitment with motor units of increased amplitude and duration in the right deltoid. Right biceps demonstrate once 1+ positive sharp waves with fasciculations. There is decreased recruitment with motor units of increased amplitude and duration in the right biceps. Pronator teres on the right side demonstrates the presence of fasciculations with decreased recruitment. No membrane instability noted in the right first dorsal interosseous, though there is decreased recruitment. Denervation is not identified in the right cervical paraspinals. An attempt was made to test the right mid thoracic paraspinals. However, the patient was not able to relax this musculature. She was unable to be placed in a prone position due to discomfort from recent placement of her feeding tube. An accurate assessment cannot be made regarding possible membrane instability and therefore I was unable to accurately assess for the presence of any positive waves, fibrillations or fasciculations. She demonstrated soft tissue swelling in the neck. Therefore an assessment was not able to be made of either the sternocleidomastoid or genioglossus muscles. Electrodiagnostic impression: This is an abnormal study. 1. Electrodiagnostic findings in the right upper limb are suggestive of motor neuron disease. There are 2 or more muscles with different innervations demonstrating the presence of fasciculations with either fibrillations or positive sharp waves in conjunction with neurogenic motor unit action potentials. There is one muscle in the right lower limb that shows presence of fasciculations and positive waves, but neurogenic motor units are not identified. Testing was limited in the thoracic region due to patient's inability to relax the musculature and bulbar testing not completed due to swelling in the neck area. Therefore the patient does not meet definitive criteria for motor neuron disease (using [place] Criteria). However, consideration should be given for a repeat study once patient can tolerate prone placement to better test thoracic paraspinals and/or if she develops leg weakness. 2. Findings are suggestive for possible sensory neuropathy based on slowing of the right median sensory nerve and absence of right superficial peroneal and sural responses.
== END 2021-08-17 23:59 | disposition home or self-care (01) ==
LOC: PSN 08:34
PROVIDERS: PCP Internal Medicine; Referring Provider Psychiatry & Neurology Neurology; Visit Provider Psychiatry & Neurology Neurology
DX: G12.20 Motor neuron disease, unspecified (principal)
CPT/HCPCS: 95886; 95913

== ENCOUNTER 2021-08-17 12:11 | Outpatient (RCR) | payer OTHER, SELFPAY | END 2021-08-27 23:59 | LOC: NS 12:11 | PROVIDERS: PCP Internal Medicine; Visit Provider Internal Medicine Gastroenterology | DX: Z71.3 Dietary counseling and surveillance (principal); E11.9 Type 2 diabetes mellitus without complications; Z93.1 Gastrostomy status; R13.10 Dysphagia, unspecified | CPT/HCPCS: 97802 ==

== ENCOUNTER → 2021-08-27 | Outpatient (CLI) | payer OTHER, SELFPAY ==
--- NOTE | 2021-08-27 09:25 | MRI_ITS ---
STUDY: MRI CERVICAL SPINE WITHOUT CONTRAST REASON FOR EXAM: Female, 60 years old. Motor neuron disease. ALS. TECHNIQUE: Standardized fat and water weighted pulse sequences were obtained in the sagittal and axial planes. COMPARISON: MRI thoracic spine without contrast 10/12/2018. No prior MRI C-spine for comparison. FINDINGS: Normal foramen magnum and brainstem-cervical cord junction. Normal craniovertebral junction. Normal anterior atlantoaxial articulation. Normal odontoid process. Normal cervical lordosis. Normal vertebral bodies and posterior osseous elements. C2-3: Normal endplates. Normal disc height, signal and morphology. Normal central canal and intervertebral neural foramina. C3-4: Normal endplates. Normal disc height, signal and morphology. Normal central canal and intervertebral neural foramina. C4-5: Anterior and posterior bone spurs arising from the C4 inferior endplate. Slight anterior wedging of the C5 superior endplate is presumably from remote injury. Mild disc space height narrowing. Mild ventral extradural defect due to bone spur. Normal central canal and intervertebral neural foramina. C5-6: Normal endplates. Normal disc height, signal and morphology. Normal central canal and intervertebral neural foramina. C6-7: Normal endplates. Normal disc height, signal and morphology. Normal central canal and intervertebral neural foramina. C7-T1: Normal endplates. Normal disc height, signal and morphology. Normal central canal and intervertebral neural foramina. T1-T2, T2-T3 and T3-T4: (Sagittal only). Normal endplates. Normal disc height and morphology. No ventral extradural defects. Normal central canal and intervertebral neural foramina. Small round benign vertebral body hemangioma in the anterior superior corner of T2 vertebral body. This is unchanged. Normal cervical cord. Normal included upper thoracic spinal cord. Normal included brainstem and cerebellum. Normal visualized soft tissue structures. MRI/Spine Cervical (Routine) IMPRESSION: 1. Normal MRI of the cervical spinal cord and the included portions of the upper thoracic spinal cord. 2. Ventral extradural defect at C4-C5 disc space level due to bone spur arising from the posterior inferior corner of C4 vertebral body. 3. No MRI evidence of cervical extruded disc fragment or spinal stenosis. Electronically Signed: Mor Salazar MD at 19:55 EDT ,
== END | disposition home or self-care (01) ==
PROVIDERS: PCP Internal Medicine; Visit Provider Psychiatry & Neurology Neurology
DX: G12.20 Motor neuron disease, unspecified (principal)
CPT/HCPCS: 72141

== ENCOUNTER 2021-08-30 10:00 | Outpatient (RCR) | payer OTHER, SELFPAY | END 2021-09-27 23:59 | LOC: NS 10:00 | PROVIDERS: PCP Internal Medicine; Referring Provider Internal Medicine Gastroenterology; Visit Provider Internal Medicine Gastroenterology | DX: R69 Illness, unspecified (principal) ==

== ENCOUNTER 2021-09-12 09:00 | Outpatient (RCR) | payer OTHER, SELFPAY ==
--- NOTE | 2021-07-04 14:48 | ST ---
[facility] Speech Pathology [address] [place] [address] Modified Barium Swallow Study MR#: [id number] Acct: [id number] Name: JAYLEN WESLEY Rep #: [id number] : 1960 60 From: Qian Tineo M.A., [facility] Modified Barium Swallow - Patient Information Study Date: 04/26/21 Study Time: 13:00 Direct Billable Minutes: 120 Total Minutes procedure & reportin Diagnosis: Dysphagia, unspecified (R13.10) Referring Physician: Felix Olson Reason for Referral: Objectively assess swallow function and aspiration risk. Medical History: Patient is a 60 year old female who was referred for assessment of Dysphagia, thought to be multifactorial by pt's junior account executive, Dr. Olson. Pt has history of tortuous esophagus, esophageal ring, silent GERD, TIA. The patient's GERD is managed by medication. PMH also includes DM type 2, HTN, CVA (7 years ago), TIA. SEE H&P from gastroenterology reports for full PMH. The patient reports coughing up food/drink intermittently. She denies history of head/neck surgery or recent pneumonia. The patient presented with dysarthria characterized by slowed speech, low vocal intensity, and imprecise articulation. She reported that these symptoms onset in September 2020. 12/06/2020 Barium esophagram IMPRESSION: Small hiatal hernia. No evidence of gastroesophageal reflux. The patient was unable to swallow the 12 mm tablet that barium. Current Diet Ordered: Regular Textures / Thin Liquids Dentition: WNL Mental Status: WNL - Patient able to follow commands for evaluation and respond appropriately in conversation. Respiratory Status: Oxygenating on Room Air - Penetration-Aspiration Scale Penetration-Aspiration Scale: OBJECTIVE ASSESSMENT OF SWALLOW FUNCTION (QUANTITATIVE ? PER TRIAL): PENETRATION / ASPIRATION SCALE (DEXTER): 1 = does not enter airway 2 = enters airway/above vocal folds/ejected 3 = enters airway/above vocal folds/not ejected 4 = enters airway/contacts vocal folds/ejected 5 = enters airway/contacts vocal folds/not ejected 6 = enters airway/below vocal folds/ejected 7 = enters airway/below vocal folds/not ejected despite effort 8 = enters airway/below vocal folds/no effort VIDEOFLOROSCOPIC SCALE SCORE (DEXTER): Grade I = aspiration of material that has penetrated into the laryngeal vestibule, intact cough reflex Grade II = aspiration < 10 % of the bolus, intact cough reflex Grade III = aspiration of < 10 % of the bolus, reduced cough reflex or aspiration of > 10 % of the bolus, intact cough reflex Grade IV = aspiration of > 10 % of the bolus, reduced cough reflex - Penetration-Aspiration Scale Score Thin Liquid via teaspoon Result: 1= does not enter airway Thin Liquid via teaspoon Trial 2 Result: 3= enters airways/above vocal folds/not ejected Thin Liquid via small single sip from cup Result: 8= enters airway/below vocal folds/no effort - Cued cough and reswallow - pt effectively cleared the laryngeal vestibule of contrast. Thin Liquid via small single sip from cup Trial 2 Result: 1= does not enter airway Thin Liquid via small single sip from cup Effortful swallow Result: 1= does not enter airway [place] Thick Liquid via small single sip from cup Result: 1= does not enter airway [place] Thick Liquid via small single sip from cup Double swallow Result: 1= does not enter airway [place] Thick Liquid via small single sip from cup Double swallow Result: 1= does not enter airway Pudding via teaspoon Result: 1= does not enter airway Cookie Result: 1= does not enter airway Thin Liquid via single sip from straw Result: 8= enters airway/below vocal folds/no effort Thin Liquid via small single sip from cup Effortful Double swallow Result: 2= enter airway/above vocal folds/ejected Thin Liquid via small single sip from cup [place] Result: 2= enter airway/above vocal folds/ejected Thin Liquid via small single sip from cup [place] Trial 2 Result: 2= enter airway/above vocal folds/ejected Thin Liquid via teaspoon Trial 3 Result: 2= enter airway/above vocal folds/ejected Thin Liquid via teaspoon Effortful swallow Result: 1= does not enter airway Thin Liquid via teaspoon Effortful swallow Trial 2 Result: 1= does not enter airway Barium Tablet via small single sip from cup Result: 5= enters airways/contacts vocal folds/not ejected - No oral clearance. Pt had to expectorate tablet. Barium Tablet via tsp of pudding Result: 3= enters airways/above vocal folds/not ejected - Pudding contrast penetrated airway without full ejection. Pt required 4 swallows and digital manipulation to clear pill from oral cavity. - Oral Phase Labial Seal: Escape progressing to mid-chin Tongue Control During Bolus Hold: Posterior escape of less than half of bolus Bolus Preparation/Mastication: Slow prolonged chewing/mashing with complete recollection Bolus Transport/Lingual Motion: Slowed tongue motion Oral Residue: Majority of bolus remaining - Piecemeal deglutition of pudding and cookie trial. - Pharyngeal Phase Initiation of Pharyngeal Swallow: Bolus head in pyriforms Soft Palate Elevation: No bolus between soft palate and pharyngeal wall Laryngeal Elevation: Partial superior movement thyroid cart/partial apprx aryt-epig petiole Anterior Hyoid Excursion: No anterior movement Epiglottic Movement: Partial inversion Laryngeal Vestibule Closure at Height of Swallow: Incomplete; narrow column of air/contrast in laryngeal vestibule Pharyngeal Stripping Wave: Present - complete Pharyngoesophageal Segment Opening: Parital distension and partial duration; parital obstruction of flow Tongue Base Retraction: Wide column of contrast between tongue base & post. pharyngeal wall Pharyngeal Residue: Collection of residue within or on pharyngeal structures - Esophageal Phase Esophageal Clearance: Esophageal retention - Treatment Strategies Effects of treatment strategies attemped:: Double swallow = somewhat effective. Effortful swallow = effective. Cough and reswallow = somewhat effective. Decreased bolus size = effective. - Diagnosis/Impression Diagnosis: oropharyngeal dysphagia (R13.12), pharyngoesophageal dysphagia (R13.14) Impression: The oral phase is primarily marked by impaired A-P bolus transport resulting in piecemeal deglutition with pudding and cookie textures, as well as poor oral clearance of barium tablet. The patient required digital manipulation and 4 swallows of pudding to clear barium tablet from the oral cavity. She requires medications crushed in puree texture. She also presents with prolonged mastication, moderate oral residue. She had premature loss of liquid bolus resulting in suboptimal bolus placement upon swallow onset. The pharyngeal phase is primarily marked by decreased airway protection, likely due to absent anterior hyoid excursion, decreased laryngeal elevation, and decreased epiglottic inversion. The patient demonstrated penetration of thin liquid trials by tsp without full ejection in 1/5 trials. With use of effortful swallows with thin liquid by tsp, the patient had improved airway protection and no laryngeal penetration. She had SILENT aspiration of thin liquids via cup and tsp. The patient presented with moderate pharyngeal residues across all consistencies, which improved with use of double swallows. Due to decreased TB retraction and epiglottic inversion, she had significant residue in the vallecula which was observed to spill into the pyriforms after the swallow. She is at increased risk for aspiration after the swallow with moderate pharyngeal residues present. The esophageal phase is marked by decreased UES opening/duration, resulting in increased pharyngeal residues in the pyriforms, which decreased with use of double swallow. She appears to have a narrowing of her upper esophagus. - Recommendations Diet: Thin Liquids Comment: Soft and bite sized textures. Double, effortful swallows on each bite and sip. Pills crushed in applesauce/puree. If unable to crush medication, take one at a time in applesauce/puree. Cough and reswallow during meals at reasonable intervals. Compensatory Strategies: Small Bites, Small Sips, Liquid by Teaspoon Only, Slow Rate, Multiple Swallows - At least 2-3 swallows per each bite/sip., Sitting upright, Remain sitting upright for 30 minutes after PO intake, Assist with verbal cues to use recommended strategies Supervision: Assist as needed Recommend Repeat Modified Barium Swallow: Yes Comment: Would recommend repeat MBS study in 8-10 weeks after implementation of oropharyngeal exercise program. Need for Skilled Speech Therapy Services: Yes Comment: Will recommend the patient for outpatient dysphagia therapy to address deficits in oropharyngeal swallow function. Would consider the patient for oropharyngeal strengthening to improve lingual coordination, laryngeal elevation, hyoid excursion, and duration of UES opening. The patient would benefit from thorough education regarding diet recommendations and recommended compensatory strategies. Would also consider patient for outpatient speech therapy evaluation of speech production, as pt appears to have mild-moderate dysarthria. Recommended Referrals: GI Consult - Pt appears to have a narrowing of upper esophagus. She has decreased duration/opening of UES. Education Completed: 1. Described result of evaluation., 7. Pt requires further education on strategies & risks. Comment: Provided education verbally and via handout for recommended diet and aspiration precautions. - Status Active ST Patient: Active - Contact Information [facility]:: Qian Tineo M.A. [facility] Speech-Language Pathologist [facility] [address] [place] [address] [email or web address] [phone] 04/26/21 15:47 04/26/21 1639 <Electronically signed by Qian Tineo M.A., [facility]> Date/Time Qian Tineo M.A., [facility]
--- NOTE | 2021-07-04 16:18 | HP.SP.AD ---
History - History Date of Eval: 07/04/21 Medical Diagnosis (from RX): Dysphagia Unspecified (R13.10) Date of Onset of Diagnosis: Symptoms began in November 2020 Previous speech therapy: No Results: Did participate in MBSS on 04/26/21, see results below. Other Relevant Medical History/Diagnoses/Surgery: DINA WESLEY is a 60-year-old female presenting to [facility] d/t worsening dysphagia s/p GI consult with Dr. Olson who diagnosed Pt with cricopharyngeal achalasia. Pt accompanied by her . Pt recently participated in an upper GI endoscopy on 06/30/21 revealing the following: ?Benign-appearing esophageal stenosis ? Dilated; Esophageal polyp(s) were found. Resected and retrieved. GEJ inflammation and a small hiatal hernia. She continues to take PPI and amitriptyline but notes no improvement. Pt reports sucking on lemon drops help the sore throat. Continues to feel like food is stuck in esophagus, getting worse over time. Ate yogurt today, vergara in yogurt got stuck. Voice cracks. Not regurgitating food.? Recommendations included: ?Discharge patient to home; Resume previous diet; Continue present medications; Await pathology results.? Pt previously participating in an MBSS on 04/26/2021 to objectively assess swallowing function which recommended soft and bite-sized food textures and thin liquids via tsp ONLY. Pt recommended to utilize double effortful swallow on each bite and sip. Pills crushed in applesauce/puree. If unable to crush medication, take one at a time in applesauce/puree. Cough and re-swallow during meals at reasonable intervals. Diagnoses following MBSS were oropharyngeal dysphagia and pharyngeal esophageal dysphagia. Pt observed to have narrowing of the upper esophagus and decreased duration/opening the UES. Following out-patient speech therapy, Pt recommended to participate in a repeat MBSS in approximately 8-10 weeks. Pt reports she presents to speech therapy today with concerns for her speech, however referral from Dr. Olson reporting Dysphagia. Pt reports GI commenting that she had lumps on her voicebox. Unclear if this is accurate as there is no mention in GI report - would be unlikely this would be investigated during an EGD. Pt reports currently adhering to soft and bite sized diet recommendations with thin liquids via tsp. Pt reports not participating in the safe swallowing strategies that were recommending following MBSS at the end of March. Pt reporting that she noticed a sudden decline in her speech starting in November. Pt?s medical hx remarkable for TIA in 2016, however Pt reports there was minimal if any change in her speech follow this medical event. Pt reports family members frequently commenting now on her speech. Pt denies doctors from recent visits commenting on speech. Pt reports frequent anterior loss of bolus when drinking and eating intermittently. Medications related to this diagnosis: Omeprazole, Eliquis, diltiazem, lisinopril Smoking Status: Unknown if ever smoked Hx Smoking: No Hx Tobacco Use: No Hx Smoking Exposure: No - Pain Is pain an issue with your current prescribed condition?: No - Personal Occupation: Retired Visual Assistive Devices: Glasses Patients Living Arrangements: With Significant Other Patient Allergies - Allergies Allergies Quinolones Allergy (Verified 06/29/21 09:44) Swelling codeine Adverse Reaction (Verified 06/29/21 09:44) Nausea Subjective Oral Motor - Subjective Patient Reports: Difficulty being Understood Facial Drooping: Left - Comments Comments: Pt demonstrating severe dysarthria with poor lingual coordination and excess saliva in oral cavity. Objective Oral Motor - Oral Status Dentition: WNL - Labial Impairment: Moderate Observation at Rest: Left Droop Pucker: Moderate - Labial Comments Comments: Pt not observed to be drooling, however has poor labial closure and unable to hold air in oral cavity (i.e., puff cheeks out). - Lingual Impairment: Moderate Protrusion: Mild Lateralization: Moderate Involuntary Movement: Yes - LINGUAL FASCICULATIONS PRESENT - Jaw Opening: Mild Closing: Mild - Oral Motor Comments Comments: During oral mechanism exam, Pt observed to present with a uvula that deviates to the left. Pt's palatopharyngeal arch also demonstrating reduced raising movement on the right side subsequently causing the uvular deviation to the left. Pt then completed diadochokinetic rate tasks via producing /puhpuhpuh/ as /buhbuhbuh/, /tuhtuhtuh/ as /luhluhluh/, and /kuhkuhkuh/ as /yuhyuhyuh/ demonstrated slow rate, hypernasality, poor lingual control, and overt evidence of nasal emission. Pt completed AMR /puhtuhkuh/ via producing as /luhluhluh/ w/ slow rate, poor coordination, hypernasality, nasal emission, and poor breath support. - Respiratory Status Respiratory Status: Room Air Subjective Dysphagia - Symptoms Reported Symptoms/Problems with: Difficulty Swallowing Solids, Food gets stuck, Hx of Aspiration Other: Excess saliva - Current Diet Solids Current Diet: Soft Other: Soft and Bite Sized (IDDSI 6) per MBSS on 04/26/21 - Current Diet Liquids Current Liquids: Thin Other: by TSP only per MBSS on 04/26/21 Objective Dysphagia - Administered by Administered by: Self - Thin Liquids Administred via: Spoon Oral Holding: Yes Comments: Pt trialed thin liquids via sip by tsp with evidence of SEVERE anterior spillage (greater than 50% of liquid off spoon) 2/2 poor labial closure, uncoordinated AP transfer, suspect premature spillage, audible swallow, however no overt s/sx of penetration/aspiration like coughing or wet vocal quality. - Pureed Oral Holding: Yes Stasis: none observed Comments: Pt trialed puree solids via tsp with evidence of minimal anterior spillage (less than 10% of material off spoon) 2/2 poor labial closure, uncoordinated AP transfer, audible swallow, however no overt s/sx of penetration/aspiration like coughing or wet vocal quality. Pt benefited from mod verbal cues to utilize 2-3 additional swallows to combat suspected residue. - Results Swallowing Within Normal Limits: No Swallowing Diagnosis: Dysphagia Unspecified Severity: Severe Modified Barium Results Hx MBS Report Entered: Yes MBS Results (from prior exam): 07/04/21 14:48 Speech Therapy by [facility] Speech [facility]ology [address] [place] [address] Modified Barium Swallow Study MR#: [id number] Acct: [id number] Name: DINA WESLEY Rep #: [id number] : 1960 60 From: Qian Tineo M.A., [facility] Modified Barium Swallow - Patient Information Study Date: 04/26/21 Study Time: 13:00 Direct Billable Minutes: 120 Total Minutes procedure & reportin Diagnosis: Dysphagia, unspecified (R13.10) Referring Physician: Felix Olson Reason for Referral: Objectively assess swallow function and aspiration risk. Medical History: Patient is a 60 year old female who was referred for assessment of Dysphagia, thought to be multifactorial by pt's balloon tester, Dr. Olson. Pt has history of tortuous esophagus, esophageal ring, silent GERD, TIA. The patient's GERD is managed by medication. PMH also includes DM type 2, HTN, CVA (7 years ago), TIA. SEE H&P from gastroenterology reports for full PMH. The patient reports coughing up food/drink intermittently. She denies history of head/neck surgery or recent pneumonia. The patient presented with dysarthria characterized by slowed speech, low vocal intensity, and imprecise articulation. She reported that these symptoms onset in September 2020. 12/06/2020 Barium esophagram IMPRESSION: Small hiatal hernia. No evidence of gastroesophageal reflux. The patient was unable to swallow the 12 mm tablet that barium. Current Diet Ordered: Regular Textures / Thin Liquids Dentition: WNL Mental Status: WNL - Patient able to follow commands for evaluation and respond appropriately in conversation. Respiratory Status: Oxygenating on Room Air - Penetration-Aspiration Scale Penetration-Aspiration Scale: OBJECTIVE ASSESSMENT OF SWALLOW FUNCTION (QUANTITATIVE ? PER TRIAL): PENETRATION / ASPIRATION SCALE (DEXTER): 1 = does not enter airway 2 = enters airway/above vocal folds/ejected 3 = enters airway/above vocal folds/not ejected 4 = enters airway/contacts vocal folds/ejected 5 = enters airway/contacts vocal folds/not ejected 6 = enters airway/below vocal folds/ejected 7 = enters airway/below vocal folds/not ejected despite effort 8 = enters airway/below vocal folds/no effort VIDEOFLOROSCOPIC SCALE SCORE (DEXTER): Grade I = aspiration of material that has penetrated into the laryngeal vestibule, intact cough reflex Grade II = aspiration < 10 % of the bolus, intact cough reflex Grade III = aspiration of < 10 % of the bolus, reduced cough reflex or aspiration of > 10 % of the bolus, intact cough reflex Grade IV = aspiration of > 10 % of the bolus, reduced cough reflex - Penetration-Aspiration Scale Score Thin Liquid via teaspoon Result: 1= does not enter airway Thin Liquid via teaspoon Trial 2 Result: 3= enters airways/above vocal folds/not ejected Thin Liquid via small single sip from cup Result: 8= enters airway/below vocal folds/no effort - Cued cough and reswallow - pt effectively cleared the laryngeal vestibule of contrast. Thin Liquid via small single sip from cup Trial 2 Result: 1= does not enter airway Thin Liquid via small single sip from cup Effortful swallow Result: 1= does not enter airway [place] Thick Liquid via small single sip from cup Result: 1= does not enter airway [place] Thick Liquid via small single sip from cup Double swallow Result: 1= does not enter airway Honey Thick Liquid via small single sip from cup Double swallow Result: 1= does not enter airway Pudding via teaspoon Result: 1= does not enter airway Cookie Result: 1= does not enter airway Thin Liquid via single sip from straw Result: 8= enters airway/below vocal folds/no effort Thin Liquid via small single sip from cup Effortful Double swallow Result: 2= enter airway/above vocal folds/ejected Thin Liquid via small single sip from cup Chin tuck Result: 2= enter airway/above vocal folds/ejected Thin Liquid via small single sip from cup Chin tuck Trial 2 Result: 2= enter airway/above vocal folds/ejected Thin Liquid via teaspoon Trial 3 Result: 2= enter airway/above vocal folds/ejected Thin Liquid via teaspoon Effortful swallow Result: 1= does not enter airway Thin Liquid via teaspoon Effortful swallow Trial 2 Result: 1= does not enter airway Barium Tablet via small single sip from cup Result: 5= enters airways/contacts vocal folds/not ejected - No oral clearance. Pt had to expectorate tablet. Barium Tablet via tsp of pudding Result: 3= enters airways/above vocal folds/not ejected - Pudding contrast penetrated airway without full ejection. Pt required 4 swallows and digital manipulation to clear pill from oral cavity. - Oral Phase Labial Seal: Escape progressing to mid-chin Tongue Control During Bolus Hold: Posterior escape of less than half of bolus Bolus Preparation/Mastication: Slow prolonged chewing/mashing with complete recollection Bolus Transport/Lingual Motion: Slowed tongue motion Oral Residue: Majority of bolus remaining - Piecemeal deglutition of pudding and cookie trial. - Pharyngeal Phase Initiation of Pharyngeal Swallow: Bolus head in pyriforms Soft Palate Elevation: No bolus between soft palate and pharyngeal wall Laryngeal Elevation: Partial superior movement thyroid cart/partial apprx aryt-epig petiole Anterior Hyoid Excursion: No anterior movement Epiglottic Movement: Partial inversion Laryngeal Vestibule Closure at Height of Swallow: Incomplete; narrow column of air/contrast in laryngeal vestibule Pharyngeal Stripping Wave: Present - complete Pharyngoesophageal Segment Opening: Parital distension and partial duration; parital obstruction of flow Tongue Base Retraction: Wide column of contrast between tongue base & post. pharyngeal wall Pharyngeal Residue: Collection of residue within or on pharyngeal structures - Esophageal Phase Esophageal Clearance: Esophageal retention - Treatment Strategies Effects of treatment strategies attemped:: Double swallow = somewhat effective. Effortful swallow = effective. Cough and reswallow = somewhat effective. Decreased bolus size = effective. - Diagnosis/Impression Diagnosis: oropharyngeal dysphagia (R13.12), pharyngoesophageal dysphagia (R13.14) Impression: The oral phase is primarily marked by impaired A-P bolus transport resulting in piecemeal deglutition with pudding and cookie textures, as well as poor oral clearance of barium tablet. The patient required digital manipulation and 4 swallows of pudding to clear barium tablet from the oral cavity. She requires medications crushed in puree texture. She also presents with prolonged mastication, moderate oral residue. She had premature loss of liquid bolus resulting in suboptimal bolus placement upon swallow onset. The pharyngeal phase is primarily marked by decreased airway protection, likely due to absent anterior hyoid excursion, decreased laryngeal elevation, and decreased epiglottic inversion. The patient demonstrated penetration of thin liquid trials by tsp without full ejection in 1/5 trials. With use of effortful swallows with thin liquid by tsp, the patient had improved airway protection and no laryngeal penetration. She had SILENT aspiration of thin liquids via cup and tsp. The patient presented with moderate pharyngeal residues across all consistencies, which improved with use of double swallows. Due to decreased TB retraction and epiglottic inversion, she had significant residue in the vallecula which was observed to spill into the pyriforms after the swallow. She is at increased risk for aspiration after the swallow with moderate pharyngeal residues present. The esophageal phase is marked by decreased UES opening/duration, resulting in increased pharyngeal residues in the pyriforms, which decreased with use of double swallow. She appears to have a narrowing of her upper esophagus. - Recommendations Diet: Thin Liquids Comment: Soft and bite sized textures. Double, effortful swallows on each bite and sip. Pills crushed in applesauce/puree. If unable to crush medication, take one at a time in applesauce/puree. Cough and reswallow during meals at reasonable intervals. Compensatory Strategies: Small Bites, Small Sips, Liquid by Teaspoon Only, Slow Rate, Multiple Swallows - At least 2-3 swallows per each bite/sip., Sitting upright, Remain sitting upright for 30 minutes after PO intake, Assist with verbal cues to use recommended strategies Supervision: Assist as needed Recommend Repeat Modified Barium Swallow: Yes Comment: Would recommend repeat MBS study in 8-10 weeks after implementation of oropharyngeal exercise program. Need for Skilled Speech Therapy Services: Yes Comment: Will recommend the patient for outpatient dysphagia therapy to address deficits in oropharyngeal swallow function. Would consider the patient for oropharyngeal strengthening to improve lingual coordination, laryngeal elevation, hyoid excursion, and duration of UES opening. The patient would benefit from thorough education regarding diet recommendations and recommended compensatory strategies. Would also consider patient for outpatient speech therapy evaluation of speech production, as pt appears to have mild-moderate dysarthria. Recommended Referrals: GI Consult - Pt appears to have a narrowing of upper esophagus. She has decreased duration/opening of UES. Education Completed: 1. Described result of evaluation., 7. Pt requires further education on strategies & risks. Comment: Provided education verbally and via handout for recommended diet and aspiration precautions. - Status Active ST Patient: Active - Contact Information [facility] Speech Therapy:: Qian Tineo M.A. [facility] Speech-Language Pathologist [address] [address] [email or web address] [phone] 04/26/21 15:47 04/26/21 [id number] <Electronically signed by Qian Tineo M.A., [facility]> Date/Time Qian Tineo M.A., [facility] [facility] Initialized on 07/04/21 14:48 - END OF NOTE Dysphagia Assessment - Swallowing Impairment Contributing Factors to Swallowing Impairment: Reduced Oral Strength/Coordination/Sensation, Mastication Inefficiency, Impaired Oral-Pharyngeal Transport - Impact Impact on Safety & Functioning: Risk for Aspiration, Risk for Inadequate Nutrition/Hydration - Recommendations Modified Barium Swallow/Cookie Swallow Recommended: Yes Swallowing Treatment: Yes - Diet Texture Recommendations Solids Other: Soft Other Solid: Soft and Bite Sized Liquids: Thin by TSP only - Safety Saftey Precautions/Swallowing Recommendations (Check all that Apply): Supervision Needed All Meals, Upright Position at Least 30 Minutes After Meals, Small Sips & Bites when Eating, No Straw, Alternate Liquids & Solids - Compensatory Strategies Compensatory Strategies: Double Swallow Subjective Dysarthria/Motor - Subjective Subjective: Upon meeting Dina, her speech intelligibility to this unknown listener was approximately 10-15% intelligible. Pt's speech intelligibility appeared to improve to 50% with increased volume, however d/t to suspected nasal emission and velopharyngeal insufficiency Pt with reduced breath support to create plosive, fricative, and affricate speech sounds, especially in the middle or ends of words. Pt reporting following her TIA in 2015 her speech was nearly at baseline. This most recent decline in speech clarity began in November of 2020 and has since worsened. Objective Dysarthira/Motor - Speech Intelligibility Phonemes: Moderate Single Words: Severe Phrases: Severe Sentences: Severe Paragraphs: Severe Conversation: Severe - Volume Volume: Moderate - Sounds Sounds in Error: Plosives (p, b, t, d, k, g), fricatives (s, z, sh, zh), and affricates (ch, dj) - Observation Observation of Apraxia of Speech: No Oral Groping for Placement: No Inconsistent Errors: No - Awareness/Strategy Use Aware of motor speech impairment, unable to use strategies to improve intelligibility: Yes Plan - Plan Plan: Will recommend Pt for weekly outpatient speech therapy intervention address severe dysarthria and suspected oropharyngeal and pharyngoesophageal (based on previous MBSS). Pt would benefit from oral motor exercises, verbal and visual modeling, verbal/visual and tactile cuing, repeated practice, and immediate feedback to improve articulation and coordination, as well as diet tolerance checks and swallowing exercises to aid in oropharyngeal strengthening. Without skilled intervention, Pt is at risk for consuming a restrictive diet putting her at risk for aspiration pneumonia and atrophy of laryngeal musculature, difficulty communicating basic, medical, emergent, social wants & needs, and interacting with family/friends at home, during social interactions, and at work. Would also recommend Pt participate in a skilled NEUROLOGY EVALUATION with special attention to cranial nerves given speech and swallowing characteristics found in today's evaluation (SEE ABOVE). - Recommendations MBS: Yes Treatment Warranted: Yes - Frequency Frequency: 1x/Week Duration: 4 Months - Prognosis Prognosis: Good - Goals that are Established: Determination:: Goals will be added/modified as deemed necessary and appropriate. Therapy will be discontinued when results of re-evaluation indicate therapy is no longer needed or lack of progress has been documented. - Goal #1-5 Goal #1: Pt will participate in neurology evaluation to further assess neurologic function re: speech and swallow. Goal #2: Pt will participate in Modified Barium Swallow (MBS) study to objectively assess Pt's oropharyngeal swallow function to determine the least restrictive means of nutrition and progress from participating in pharyngeal strengthening exercises. Goal #3: Pt will complete oropharyngeal exercises (Leana, Shaker, Sehela) for 10 reps, 3x/day independently to improve bolus manipulation, oral strengthening, ROM, tongue base retraction, PES opening/distention, and hyolaryngeal elevation and excursion. Goal #4: The pt will demonstrate and utilize speech intelligibility techniques (increased loudness, reduced rate of speech, exaggerated articulation, increased jaw ROM) 50% of the time during conversational speech independently across 3 measured sessions to facilitate increased expressive communication abilities in the home and social environments. Education - Patient has Indicated that the Following Identified Educational Needs: None The Patient has indicated that they have no educational or learning abilities that may effect their care.: Yes - Patient Instruction Patient Education: Diagnosis, Treatment Plan, Goals, Safety Precautions, Diet Level Person Taught: Patient, Significant Other Teaching Method: Discussion, Demonstration, Handout Response to teaching: Return demonstration, Verbalize understanding, Reinforcement needed
--- NOTE | 2021-09-12 10:37 | HP.PTEVAL_ITS ---
Patient's Visit Information JAYLEN WESLEY is a 60 year old F referred to Physical Therapy by Dr. Washington Friend, with a diagnosis of Upper motor disease, unspecified. Date of Evaluation: 09/12/21 Physical Therapist: Alexandre Rogers DPT - Visit Plan Frequency: 1x/Week Duration: 2 Weeks Plan: Pt. is overall doing well. I will leave her case open for now in case she starts she progressively gets worse. She is to follow up with physician later this week. Then to OT for further assessment if needed. - Subjective Pt. is here today for her initial evaluation with diagnosis of Motor Neuron disease, unspecified. She has an unknown diagnosis at this point in time, doctor did suggest ALS potentially. Pt. reports no issues around the house. Overall reports she is not falling and no balance issues. She does report having some issues with reaching over head. Sleeping okay. She reports being able to drive but does not. She is doing speech, but has this on hold until getting communication device. Pt. reports all no balance issues. She has been having a marked wt. loss of over the past 6 months, but this may be due to difficulty eating, now has feeding tube placement. Pt's major complaint is about her difficulty speaking, and with her UB strength. Her spouse was here today to assist with communication when needed. She does have some trouble with UB dressing, getting things out of refrigerator and cabinets. She is hopeful to get her UB stronger. Pt. to follow up later this week with neurologist to determine diagnosis and how to proceed. - Objective POSTURE: Pt. has decent posture in stance. Normal foot width, minimal to no postural sway noted. PALPATION: Pt. has a history of Right TKA ~2 years ago. No pain throughout BLEs. Pt. does report some abdominal pain at times with her feeding tube placement. NEURO: pt. has normal sensation to light and sharp touch of BLEs. Pt. has 3+ hyper reflexive on R patellar and Achillies, no clonus noted. Normal on L side. ROM: Pt. has good ROM of BLEs and lumbar spine. Slight tightness in B HS. Pt. has limited active ROM of BUEs. Good passive without increase in symptoms. MMT: BLES: pt. has decent BLE strength LLE: ankle normal, knee: ext 28lbs, flexion 21 lbs; hip: flexion 18lbs, abd 13lbs. RLE: ankle: normal symmetrical. knee: ext 24#, flexion 16# pt. reports mild increase in R knee pain. Hip: flexion 13lbs, abd 11lbs. She is slightly weaker on R side, mostly at knee. She did have pain here and might be still sore after TKA a few years ago which is limited strength. UBE: very limited in all directions of shoulder, elbow: same, very limited. Special Education Secretary strength: R hand 9lbs, L hand 2lbs. (R hand dominant). Very weak for age adjusted shaping machine tender strength. GAIT: Pt. ambulates well without AD. No major signs of imbalance or risk for falls. She has good step length. No antalgic pattern noted. Pt. reports no pain with ambulation. STAIRS: Pt. has is able to negotiate with step through pattern with use of 1 HR. She report some mild R knee pain with ascending, most likely due to previous R TKA. - Balance/Special Test Scores Functional Gait Assessment Score: 25 % Disability: 16.6700 CATSIB Score (Max score 120 seconds): 105 Lower Extremity Functional Score: 39 TUG Test Time Seconds: 12.1 30 Second Chair Rise Test Seconds: 14 - Goals Goal 1:: LTG: Pt. to maintain current level of balance and LE strength. Goal Time Frame: 4-6 Weeks - Rehabilitation Potential Physical Therapy Diagnosis: Pt. has signs and symptoms consistent with Upper motor disease. She has marked UE weakness, but LEs seem less effected than UEs. She has marked dysphagia which is also bothering her. She is overall doing well from a balance, stability and LE strength stand point. I recommended that she see her physician then possibly follow up with OT for UB strengthening and potentially ADL training. Rehabilitation Potential: Excellent - Anticipated Interventions Patient/Client Instruction: Educate patient on: Condition, Plan of Care, Risk Factors, Benefits of Fitness Program For the Purpose of:: To facilitate caregiver knowledge, To improve self management, To prevent re-injury, To improve ability to perform tasks related to life management, To improve tolerance to ADL's Therapeutic Exercise to Include: Strength training, Balance training, Body mechanics, Gait and locomotor training For the Purpose of:: To decrease pain, To increase ROM, To improve nutrient d elivery to tissue, To increase oxygenation perfusion, To improve gait and locomotor functions, To improve health of tissue, To decrease soft tissue restriction, To increase flexibility/ROM Thank you for the opportunity to evaluate your patient. For Medicare and Medicare HMO plans, please review the plan of care and approve it. It will need to be FAXED BACK to us at [phone] for Medicare purposes. For Medicare only, by signing this I certify the plan of care. Please let me know if there are questions or concerns regarding this plan of care. Physician Signatu re: Date:
--- NOTE | 2021-10-10 09:29 | HP.PT.NRP ---
JAYLEN WESLEY was seen in my office for initial evaluation on 09/12/21. The following Plan of Care was established for this patient: Initial Frequency: 1x/Week Initial Duration: 2 Weeks Patient/Client Instruction: Educate patient on: Condition, Plan of Care, Risk Factors, Benefits of Fitness Program For the Purpose of:: To facilitate caregiver knowledge, To improve self management, To prevent re-injury, To improve ability to perform tasks related to life management, To improve tolerance to ADL's Therapeutic Exercise to Include: Strength training, Balance training, Body mechanics, Gait and locomotor training For the Purpose of:: To decrease pain, To increase ROM, To improve nutrient delivery to tissue, To increase oxygenation perfusion, To improve gait and locomotor functions, To improve health of tissue, To decrease soft tissue restriction, To increase flexibility/ROM This patient was last seen in our office 09/12/21. Pertinent comments regarding their Physical therapy will appear below: Pt. was seen for PT for her upper motor neuro pathology. She did very well with balance and motor testing. She was to follow up with neurologist to determine if they felt she should continue with PT. She has not been seen in ~1 month and will be DC from PT at this point in time. She was doing well with her gait and balance, but if she should regress I would love to take another look at her. Thank you. At this point I will be discontinuing this patient from physical therapy. I would be happy to see this patient again in the future if found appropriate by the physician. Thank you! Alexandre Rogers, DPT Balance/Gait/Functional tests - Balance/Special Test Scores Functional Gait Assessment Score: 25 % Disability: 16.6700 CATSIB Score (Max score 120 seconds): 105 Lower Extremity Functional Score: 39 TUG Test Time Seconds: 12.1 Tug Test: <20 sec.=mostly independent 30 Second Chair Rise Test Seconds: 14
== END 2021-09-12 19:00 | disposition home or self-care (01) ==
LOC: PT 09:00
PROVIDERS: PCP Internal Medicine; Referring Provider Internal Medicine Gastroenterology; Visit Provider Internal Medicine Gastroenterology
DX: R13.10 Dysphagia, unspecified (principal); G12.20 Motor neuron disease, unspecified
CPT/HCPCS: 92507; 92523; 92526; 92610; 97161

== ENCOUNTER 2021-09-22 13:17 | Emergency (ER) | payer OTHER, SELFPAY ==
[2021-09-22] VITALS (7 sets, daily range): BP systolic 108–136; BP diastolic 62–74; PULSE 67–92; RESP 15–18; TEMP 36.2; O2SAT 97–100; BMI 27.8
--- NOTE | 2021-09-22 13:32 | EKG12_ITS ---
Test Reason : CP Blood Pressure : / mmHG Vent. Rate : 089 BPM Atrial Rate : 089 BPM P-R Int : 162 ms QRS Dur : 074 ms QT Int : 338 ms P-R-T Axes : 046 027 046 degrees QTc Int : 411 ms Normal sinus rhythm Septal infarct (cited on or before 06-FEB-2019) Abnormal ECG Confirmed by LENCHO LEO, ALFREDO ([id number]), food expeditor ROSEANNA MOHAMUD ([id number]) on 09/23/2021 10:13:34 AM Referred By: ANGELIKA Confirmed By:ALFREDO MUSA MD
[2021-09-22 13:39] LABS: Absolute Lymphocyte Count 0.97 X10^3/uL (0.83-4.51); Absolute Neutrophil Count 3.7 X10^3/uL (2.0-7.7); Basophil# 0.02 X10^3/uL; Basophil% 0.4 % (0-1); Eosinophil# 0.08 X10^3/uL; Eosinophils% 1.6 % (0-5); Hematocrit 39.3 % (37-47); Hemoglobin 12.6 g/dL (12.0-15.0); Lymphocyte # 0.97 X10^3/ul (0.83-4.51); Lymphocyte % 19.2 % (19-41); Mean Corp Hgb Conc 32.1 g/dL (32-36); Mean Corpuscular Hgb 30.7 pg (27.0-32.0); Mean Corpuscular Volume 95.9 fL (81-99); Mean Platelet Vol. 11.4 fl (6.2-12.0); Monocyte# 0.25 X10^3/uL; NRBC Flagged by Analyzer 0 % (0-5); Neutrophil # 3.72 X10^3/uL (2.7-7.7); Neutrophil % 73.6 % (47-70); Platelet Count 203 K/mm3 (150-450); RBC Distribution Width CV 13.7 % (11.6-14.6); RBC Distribution Width SD 47.6 fl (35.1-43.9); White Blood Count 5.1 K/mm3 (4.4-11.0)
--- NOTE | 2021-09-22 13:48 | RAD_ITS ---
STUDY: X-RAY CHEST REASON FOR EXAM: Female, 60 years old. chest pain TECHNIQUE: AP COMPARISON: None. FINDINGS: EKG leads project over the chest. The lungs are clear and expanded. There is no demonstrated pleural abnormality. Normal size heart. Normal mediastinum and amos. Normal visualized pulmonary arteries. Normal visualized aortic arch and descending thoracic aorta. Normal visualized thoracic spine. Normal visualized ribs, clavicles, and shoulders. There is no demonstrated abnormality of the visualized soft tissue structures of the upper abdomen. RAD/Chest 1 View (Portable) IMPRESSION: Nonacute portable x-ray examination of the chest. Electronically Signed: Gaurav Wallis MD ([place]) at 14:08 EDT ,
[2021-09-22 14:04] LABS: Anion Gap 7 (5-15); BUN 31 mg/dL (7-18); BUN/Creat Ratio 37.7 RATIO (10-20); Calcium,Total 10.2 mg/dL (8.5-10.1); Chloride 99 mmol/L (98-107); Creatinine, Serum 0.82 mg/dL (0.55-1.02); EST Glomerular Filtration Rate 75 mL/min (>60); Est Glom Filt Rate - Afr Amer 91 mL/min (>60); Estimated Creatinine Clearance 64.83 ml/min; Glucose 205 mg/dL (74-106); Potassium 4.5 mmol/L (3.5-5.1); Sodium Level 137 mmol/L (136-145); Troponin-I HS 4 pg/mL (3.0-54.0)
--- NOTE | 2021-09-22 14:07 | EDS_ITS ---
HPI History of Present Illness Chief Complaint: Chest Pain Narrative Narrative: 60-year-old female presenting with sharp retrosternal chest pain that radiates to the right arm. Patient states it started 1 hour ago. She has no other associated symptoms. Patient denies cardiac history but does state that she has history of TIA, hyperlipidemia, diabetes, dysphagia. She does have history of hiatal hernia as well. Patient currently has a PEG tube for dysphagia. She is not really sure what the diagnosis is which is causing her difficulty swallowing and speaking. Patient states has been on Eliquis for about a year for history of DVT. [facility] Medical History Abdominal pain Acute bilateral thoracic back pain Arthritis Back pain Bulging of intervertebral disc between L4 and L5 Chronic headaches Dehydration Depression Diabetes Diabetes mellitus type 2 in obese Dietary restriction Difficulty chewing Difficulty with speech Diverticulosis DVT (deep venous thrombosis) Easy bruising Gait abnormality Headache Hiatal hernia History of echocardiogram History of edema History of ganglion cyst History of ganglion cyst History of pain when walking History of stress test Hyperlipidemia Hypertension Leukopenia Low iron Mass of right upper extremity Nephrolithiasis Non-smoker Obesity (BMI 30.0-34.9) Osteoarthritis Post-menopausal Stroke/cerebrovascular accident Syncope TIA (transient ischemic attack) Wears glasses Home Medications allopurinol 300 mg PO DAILY 08/10/14 [History Last Taken 10/11/18] aspirin 81 mg PO DAILY@0800 #30 tab 09/15/15 [Rx Last Taken 06/27/21] cholecalciferol (vitamin D3) 7,000 unit PO DAILY 03/06/17 [History Last Taken 10/11/18] sertraline 50 mg PO DAILY #30 tab 10/13/18 [Rx Last Taken Unknown] ascorbic acid (vitamin C) 1,000 mg tablet 1 g PO DAILY tab 05/14/20 [History Last Taken Unknown] glipizide 10 mg tablet 10 mg PO DAILY tab 05/14/20 [History Last Taken Unknown] lisinopril 10 mg tablet 10 mg PO BID 05/14/20 [History Last Taken 01/24/21 08:00] metformin 1,000 mg tablet 500 mg PO BIDCM tab 05/14/20 [History Last Taken Unknown] apixaban [Eliquis] 5 mg PO BID 09/29/20 [History Last Taken 06/27/21] amitriptyline 10 mg tablet See Rx Instructions .ROUTE .COMPLEX #30 tab 03/14/21 [Rx Last Taken Unknown] diltiazem HCl 30 mg tablet 30 mg PO ONCE #30 tab 05/04/21 [Rx Last Taken Unknown] lidocaine HCl 2 % mucosal solution 10 ml PO Q8H #200 ml 05/04/21 [Rx Last Taken Unknown] pioglitazone 15 mg PO DAILY 06/29/21 [History Last Taken Unknown] simvastatin 40 mg PO DAILY 06/29/21 [History Last Taken Unknown] acetaminophen 500 mg capsule 500 mg PO Q6H PRN 07/28/21 [History Last Taken Unknown] magnesium oxide 400 mg PO DAILY #30 tab 07/28/21 [Rx Last Taken Unknown] Allergy/AdvReac Type Severity Reaction Status Date / Time Quinolones Allergy Swelling Verified 09/22/21 13:19 codeine AdvReac Nausea Verified 09/22/21 13:19 Family History Brother Colon cancer Diabetes Father Diabetes High cholesterol Hypertension Mother High cholesterol Heart disease Hypertension Dementia Surgical History H/O: hysterectomy History of carpal tunnel surgery of right wrist History of total right knee replacement History of tubal ligation Hx laparoscopic cholecystectomy Hx of appendectomy Hx of lithotripsy Total knee replacement status Social History household members: spouse housing: house number of children: 2 current occupational status: disabled pets and animals: Yes (2 cats dog) history of recent travel: No Smoking Status: Never smoker alcohol intake: never substance use type: does not use ROS ROS ED Constitutional Constitutional ED: Denies chills or fever(s) Eyes Eyes: Denies blurry vision or change in vision ENT ENT ED: Denies rhinorrhea or sore throat Cardiovascular Cardiovascular: Reports as per HPI Respiratory/Chest Respiratory/Chest: Denies cough, dyspnea or sputum Gastrointestinal Gastrointestinal: Denies abdominal pain, nausea or vomiting Genitourinary Genitourinary ED: Denies dysuria or hematuria Musculoskeletal Musculoskeletal: Denies arthralgias or myalgias Integumentary Denies rash Neurologic Neurologic: Denies headache(s) or weakness Psychiatric Psychiatric: Denies anxiety or depression Endocrine Endocrinology: Denies polydipsia or polyuria EXAM Physical Exam Const Vital Signs: 09/22/21 13:18 09/22/21 13:28 09/22/21 13:33 Temperature 97.1 F L Temperature Source Temporal Pulse Rate 92 87 Respiratory Rate 16 18 Blood Pressure 121/70 H 136/74 H Blood Pressure Mean 87 94 Pulse Ox 99 97 Oxygen Delivery Method Room Air Room Air Room Air 09/22/21 14:20 09/22/21 15:26 09/22/21 16:11 Temperature Temperature Source Pulse Rate 72 68 67 Respiratory Rate 15 17 17 Blood Pressure 108/69 115/62 112/69 Blood Pressure Mean 82 79 83 Pulse Ox 97 100 99 Oxygen Delivery Method Room Air Room Air Room Air 09/22/21 16:52 Temperature Temperature Source Pulse Rate 70 Respiratory Rate 18 Blood Pressure 132/69 H Blood Pressure Mean 90 Pulse Ox 99 Oxygen Delivery Method Room Air Positive well developed General Appearance ED: well developed and NAD; Negative for pallor HEENT Reports moist mucous membranes normocephalic and atraumatic Eyes PERRL and EOMs intact bilaterally Chest Wall inspection of chest normal and palpation of chest normal Resp normal respiratory effort Effort and Inspection: respiratory distress Cardio regular rate and regular rhythm GI normal to inspection, nondistended, normoactive bowel sounds Back/Spine no CVA tenderness Neuro oriented x3 and CN's II-XII intact bilaterally Sensorium / Orientation: awake and alert Psych mental status grossly normal Skin General Skin Exam: Negative for jaundice or pallor MDM MDM MDM Narrative Medical decision making narrative: EKG is obtained and on my interpretation this is a sinus rhythm with a ventricular rate of 89 bpm without sign of ischemic change or dysrhythmia. Chest x-ray my interpretation shows no acute cardiopulmonary process and the radiologist agree. CBC and BMP are unremarkable. High-sensitivity troponin is 4. Patient anticoagulated on Eliquis so I have low suspicion of PE. Delta troponin is less than 3. Given negative work-up I feel patient is stable to be discharged home. Patient will follow up with her primary care provider to ensure resolution. Impression: 1. Chest pain?noncardiac Lab Data Attestation: I reviewed the patient's lab results. Labs: Laboratory Results - last 24 hr 09/22/21 09/22/21 09/22/21 13:30 13:30 16:15 WBC 5.1 RBC 4.10 L Hgb 12.6 Hct 39.3 MCV 95.9 MCH 30.7 MCHC 32.1 RDW Std Deviation 47.6 H RDW Coeff of Laury 13.7 Plt Count 203 MPV 11.4 Immature Gran % (Auto) 0.200 Neut % (Auto) 73.6 H Lymph % (Auto) 19.2 Crane % (Auto) 5.0 Eos % (Auto) 1.6 Baso % (Auto) 0.4 Absolute Neuts (auto) 3.7 Absolute Lymphs (auto) 0.97 Nucleated RBC % 0 Sodium 137 Potassium 4.5 Chloride 99 Carbon Dioxide 31.0 Anion Gap 7 BUN 31 H Creatinine 0.82 Estim Creat Clear Calc 64.83 Est GFR (MDRD) Af Amer 91 Est GFR (MDRD) Non-Af 75 BUN/Creatinine Ratio 37.7 H Glucose 205 H Calcium 10.2 H Troponin I High Sens 4 < 3 L Radiography Diagnostic Testing: Clinical Impression(s) from Imaging Studies Chest X-Ray 09/22/21 13:48 IMPRESSION: Nonacute portable x-ray examination of the chest. Electronically Signed: Gaurav Wallis MD ([place]) at 14:08 EDT Reading Location ID and State: [facility] / [place] , Service support , Discharge Plan Triage Chief Complaint: Chest Pain ED Provider: Greg Mathur Dx/Rx/DC Orders Instructions: ED Chest Pain, Noncardiac Prescriptions: No Action metformin 1,000 mg tablet 500 mg PO BIDCM RF: 0 lisinopril 10 mg tablet 10 mg PO BID RF: 0 ascorbic acid (vitamin C) 1,000 mg tablet 1 g PO DAILY RF: 0 diltiazem HCl [Cardizem] 30 mg tablet 30 mg PO ONCE Qty: 30 RF: 1 lidocaine HCl [Lidocaine Viscous] 2 % solution 10 ml PO Q8H Qty: 200 RF: 2 acetaminophen 500 mg capsule 500 mg PO Q6H PRN (Reason: Pain) RF: 0 magnesium oxide 400 mg magnesium tablet 400 mg PO DAILY Qty: 30 RF: 2 allopurinol 300 MG tablet 300 mg PO DAILY RF: 0 glipizide 10 mg tablet 10 mg PO DAILY RF: 0 aspirin 81 MG tablet 81 mg PO DAILY@0800 Qty: 30 RF: 0 cholecalciferol (vitamin D3) 5,000 UNIT tablet,disintegrating 7,000 unit PO DAILY RF: 0 sertraline 50 MG tablet 50 mg PO DAILY Qty: 30 RF: 0 Eliquis 5 mg tablet 5 mg PO BID RF: 0 pioglitazone 15 mg tablet 15 mg PO DAILY RF: 0 simvastatin 40 mg tablet 40 mg PO DAILY RF: 0 amitriptyline 10 mg tablet See Rx Instructions .ROUTE .COMPLEX Qty: 30 RF: 3 Primary Care Provider: Lashay Rivers Referrals: Lashay Rivers DO [Primary Care Provider] - Disposition Disposition: Home, Self Care
[2021-09-22 16:54] LABS: Troponin-I HS < 3 pg/mL (3.0-54.0)
== END 2021-09-22 17:21 | disposition home or self-care (01) ==
PROVIDERS: Emergency Provider Student in an Organized Health Care Education/Training Program; PCP Internal Medicine; Visit Provider Student in an Organized Health Care Education/Training Program
DX: R07.2 Precordial pain (principal); Z93.1 Gastrostomy status; E11.9 Type 2 diabetes mellitus without complications; R13.10 Dysphagia, unspecified; I10 Essential (primary) hypertension; E78.5 Hyperlipidemia, unspecified; E66.9 Obesity, unspecified; Z79.01 Long term (current) use of anticoagulants; Z79.84 Long term (current) use of oral hypoglycemic drugs; Z79.899 Other long term (current) drug therapy; Z78.0 Asymptomatic menopausal state; Z86.718 Personal history of other venous thrombosis and embolism; Z86.73 Personal history of transient ischemic attack (TIA), and cerebral infarction without residual deficits
CPT/HCPCS: 71045; 80048; 84484; 85025; 93005; 99284; A4216

== ENCOUNTER → 2021-09-29 | Outpatient (CLI) | payer OTHER, SELFPAY ==
[2021-09-29 15:48] LABS: Lyme Ab Screen Interpretation REF LAB
[2021-09-29 17:55] LABS: Erythrocyte Sedimentation Rate 8 mm/hr (0-30)
[2021-09-29 18:33] LABS: HIV - WCH Non-Reactive (Nonreactive); Vitamin B12 526 pg/mL (211-911)
[2021-09-30 09:19] LABS: PTHIN 35.3 pg/mL (18.4-80.1)
[2021-10-04 16:44] LABS: Lead, Blood Adult 16+yrs < 1 ug/dL (0-4)
[2021-10-06 10:08] LABS: Albumin 4.2 g/dL (2.9-4.4); Alpha-1-Globulins 0.2 g/dL (0.0-0.4); Alpha-2-Globulins 0.8 g/dL (0.4-1.0); Gamma Globulin 0.7 g/dL (0.4-1.8); Immunoglobulin A 154 mg/dL (87-352); Immunoglobulin G 832 mg/dL (586-1602); Immunoglobulin M 34 mg/dL (26-217)
[2021-10-06 10:38] LABS: Arsenic 7245 < 1 ug/L (0-9); Lead, Blood < 1 ug/dL (0-4)
[2021-10-06 10:39] LABS: Lyme Scn Total Ab w/Rflx Negative (Negative); Mercury, Blood 85324 < 1.0 ug/L (0.0-14.9)
== END | disposition home or self-care (01) ==
LOC: MTLAB 15:42
PROVIDERS: PCP Internal Medicine; Referring Provider Psychiatry & Neurology Neurology; Visit Provider Psychiatry & Neurology Neurology
DX: G12.20 Motor neuron disease, unspecified (principal)
CPT/HCPCS: 82175; 82607; 82746; 82784; 83655; 83825; 83970; 84165; 85652; 86334; 86618; 86703

== ENCOUNTER 2021-10-05 10:00 | Outpatient (RCR) | payer OTHER, SELFPAY ==
--- NOTE | 2021-08-30 11:48 | EX.NTREPO ---
Medical Nutrition Therapy - History Nutrition Services has been consulted to:: Manage enteral nutrition - F/U as Outpatient x 2 weeks Current diet/nutrition support order:: NPO. PEG placed 08/16/21 - Anthropometric Measurements Height:: 5 ft 5 in Weight:: 75.024 kg Body Mass Index (BMI):: 27.5 - Assessment Food and Nutrient Intake: Pt w/ very limited PO intake d/t difficulty swallowing over past 6 months. Pt has been unintentionally losing wt over past 6 months to 1 year. Pt states initially wt loss was intentional at first but was expedited by swallowing difficulties. UBW 225# and CBW 165.4#- 59.6#/26.4% wt loss x 1 year is significant for malnutrition. - Protein Calorie Malnutrition Evidence of Malnutrition Exists: Yes Severe Protein Calorie Malnutrition:: Chronic - Nutrition Intervention Nutrition Prescription: 8313-0014 calories/day (1.3xRMR). 65-75 g protein/day (1.0g/kg). 1875-2250mL fluid/day (25-30mL/kg) - Food / Nutrient Delivery Interventions Nutrition support ordered as / adjusted to:: NPO; Via PEG- 250mL (1 carton) bolus of Isosource 1.5 5x/day to provide 1875 calories, 85 g protein/day. 90mL H2O flush before and after each bolus to provide 1855mL fluid/day (955mL in formula plus 900mL via flush). Recommended feeding times of 0900, 1200, 1500, 1800, and 2100. Coordination of Nutrition Care: [employer] not approved by insurance company. Communication sent to [facility] for provision of formula and supplies. Pt and family to call RDN w/ additional questions. Will f/u w/ RDN October 05 at 10AM - MNT Monitoring Active Nutrition Patient: Yes
[2021-08-30 11:49] VITALS: BMI 27.5
== END 2021-10-27 23:59 ==
LOC: NS 10:00
PROVIDERS: PCP Internal Medicine; Referring Provider Internal Medicine Gastroenterology; Visit Provider Internal Medicine Gastroenterology
DX: R13.10 Dysphagia, unspecified (principal); Z93.1 Gastrostomy status
CPT/HCPCS: 97803

== ENCOUNTER → 2021-11-19 | Outpatient (CLI) | payer OTHER, SELFPAY ==
[2021-11-19 09:15] LABS: Allen Test Positive; Base Excess 3 mmol/L (-2 to +2); Bicarbonate 26.9 mmol/L (22-26); Blood Gas Specimen Type ART; O2 Delivery Device Room Air; PO2 88 mmHG (75-100); SITE R Radial; SO2 97 % (95-99); Total Carbon Dioxide 28 mmol/L; pH 7.44 (7.35-7.45)
== END | disposition home or self-care (01) ==
LOC: LAB 08:26
PROVIDERS: PCP Internal Medicine; Referring Provider Internal Medicine Pulmonary Disease; Visit Provider Internal Medicine Pulmonary Disease
DX: G12.21 Amyotrophic lateral sclerosis (principal)
CPT/HCPCS: 36600; 82803

== ENCOUNTER → 2021-11-30 | Outpatient (CLI) | payer OTHER, SELFPAY ==
[2021-11-30 10:34] LABS: Hemoglobin A1c 6.6 % (3.8-5.6)
[2021-11-30 10:44] LABS: ALB/GLOB Ratio 1.2 RATIO (0.9-2.4); AST(SGOT) 23 U/L (15-37); Alanine Aminotransfer ALT/SGPT 32 U/L (13-56); Alkaline Phosphatase 35 U/L (45-117); Anion Gap 7 (5-15); BUN 25 mg/dL (7-18); BUN/Creat Ratio 40.2 RATIO (10-20); Calcium,Total 10.2 mg/dL (8.5-10.1); Chloride 103 mmol/L (98-107); Creatinine, Serum 0.62 mg/dL (0.55-1.02); EST Glomerular Filtration Rate 103 mL/min (>60); Est Glom Filt Rate - Afr Amer 125 mL/min (>60); Globulin 3.2 g/dL (2.2-4.2); Glucose 142 mg/dL (74-106); Magnesium 1.7 mg/dL (1.6-2.6); Potassium 4.6 mmol/L (3.5-5.1); Protein, Total 7.2 g/dL (6.4-8.2); Sodium Level 139 mmol/L (136-145)
== END | disposition home or self-care (01) ==
LOC: LAB 09:32
PROVIDERS: PCP Internal Medicine; Referring Provider Psychiatry & Neurology Neurology; Visit Provider Psychiatry & Neurology Neurology
DX: E11.69 Type 2 diabetes mellitus with other specified complication (principal); E66.9 Obesity, unspecified; E83.42 Hypomagnesemia
CPT/HCPCS: 36415; 80053; 83036; 83735

== ENCOUNTER → 2022-01-05 | Outpatient (CLI) | payer OTHER, SELFPAY ==
[2022-01-05 15:07] LABS: Hematocrit 37.1 % (37-47); Mean Corp Hgb Conc 32.3 g/dL (32-36); Mean Corpuscular Hgb 31.2 pg (27.0-32.0); Mean Corpuscular Volume 96.4 fL (81-99); Mean Platelet Vol. 11.7 fl (6.2-12.0); Platelet Count 305 K/mm3 (150-450); RBC Distribution Width CV 13.2 % (11.6-14.6); RBC Distribution Width SD 47.3 fl (35.1-43.9); Red Blood Count 3.85 M/mm3 (4.2-5.4); White Blood Count 5.1 K/mm3 (4.4-11.0)
[2022-01-05 15:21] LABS: AST(SGOT) 23 U/L (15-37); Alanine Aminotransfer ALT/SGPT 33 U/L (13-56); Albumin, Serum 3.7 g/dL (3.2-5.0); Alkaline Phosphatase 40 U/L (45-117); Anion Gap 8 (5-15); BUN 34 mg/dL (7-18); BUN/Creat Ratio 53.1 RATIO (10-20); Calcium,Total 10.8 mg/dL (8.5-10.1); Chloride 98 mmol/L (98-107); Creatinine, Serum 0.64 mg/dL (0.55-1.02); EST Glomerular Filtration Rate 100 mL/min (>60); Est Glom Filt Rate - Afr Amer 121 mL/min (>60); Globulin 3.8 g/dL (2.2-4.2); Glucose 115 mg/dL (74-106); Magnesium 1.7 mg/dL (1.6-2.6); Potassium 4.8 mmol/L (3.5-5.1); Protein, Total 7.5 g/dL (6.4-8.2); Sodium Level 137 mmol/L (136-145)
[2022-01-14 07:41] LABS: Vitamin B1, Thiamine 177.4 nmol/L (66.5-200.0)
== END | disposition home or self-care (01) ==
LOC: MTLAB 12:48
PROVIDERS: PCP Internal Medicine; Referring Provider Psychiatry & Neurology Neurology; Visit Provider Psychiatry & Neurology Neurology
DX: G12.21 Amyotrophic lateral sclerosis (principal); G62.9 Polyneuropathy, unspecified
CPT/HCPCS: 36415; 80053; 83735; 84425; 85027

== ENCOUNTER → 2022-01-06 | Outpatient (CLI) | payer OTHER, SELFPAY ==
[2022-01-06 15:27] LABS: Mucous, Urine 0 SEEN /hpf (<or=2+)
[2022-01-06 16:31] LABS: Color, Urine Yellow (Yellow); Glucose, Dipstick Normal (Normal); Ketone-Dipstick Negative (Negative); Leukocyte Esterase-Dipstick 500 /ul (Negative); Nitrite-Dipstick Negative (Negative); Occult Blood-Urine 10 /ul (Negative); Protein-Dipstick 15 mg/dl (Negative); Specific Gravity, Urine 1.015 (1.002-1.030); Urine Bilirubin Dipstick Negative (Negative); Urine Clarity Cloudy (Clear); Urine Urobilinogen Normal (Normal)
[2022-01-06 18:34] LABS: Amorphous Sediment 2+; Bacteria 3+ /hpf (None Seen); Red Blood Cells-Urine 0-5 SEEN /hpf (0-5); Squamous Epithelial Cells - UA 0-5 SEEN /hpf (5-10); White Blood Cells 10-25 SEEN /hpf (0-5)
[2022-01-06 21:47] LABS: Renal Epithelial Cells 0 SEEN /hpf (0-5); Transitional Epithelial - Ur 0 SEEN /hpf (0-5)
== END | disposition home or self-care (01) ==
LOC: LABSPEC 15:21
PROVIDERS: PCP Internal Medicine; Visit Provider Physician Assistant
DX: R39.9 Unspecified symptoms and signs involving the genitourinary system (principal)
CPT/HCPCS: 81001; 87086; 87088